=== PATIENT | female | born 1990 | race Caucasian/White ===

== ENCOUNTER 2022-06-08 15:53 | Emergency (ER) | payer OTHER, SELFPAY ==
--- NOTE | ~2022-06-08 | CT_ITS ---
EXAMINATION: CT ABDOMEN AND PELVIS WITHOUT CONTRAST CLINICAL INFORMATION: Right Flank pain. Question stone. COMPARISON: CT abdomen 05/29/2019 TECHNIQUE: Multidetector volumetric imaging was performed from the superior aspect of the liver through the pubic symphysis. Sagittal and coronal reformatted images were obtained on the technologist's workstation. This CT examination was performed using dose optimization techniques as appropriate, variously including the following: *Automated exposure control *Adjustment of mA and/or kV according to patient size (this includes techniques or standardized protocols for targeted exams where dose is matched to indication/reason for exam; i.e. extremities or head) *Use of iterative reconstruction technique DLP: 1097 mGy-cm FINDINGS: LUNG BASES: Minimal left basilar atelectasis/scarring. LIVER, GALLBLADDER, AND BILIARY TREE: The liver is normal in size, shape, and attenuation. No focal hepatic lesion or biliary ductal dilatation is present. The gallbladder is unremarkable with no evidence of radiopaque gallstones, gallbladder wall thickening, or obvious pericholecystic inflammatory changes. PANCREAS: Unremarkable. SPLEEN: Unremarkable. ADRENAL GLANDS: Unremarkable. KIDNEYS AND URETERS: There is a 5 mm calculus in the distal right ureter just proximal to the right UVJ. Proximal to this, there is mild to moderate hydroureteronephrosis, with mild periureteral stranding. No renal calculi. No left ureteral calculi or hydronephrosis. BLADDER: Partially distended appearing unremarkable. GASTROINTESTINAL TRACT: The small and large bowel are unremarkable. Appendix is unremarkable. ABDOMINAL WALL: Small fat-containing umbilical hernia LYMPH NODES: Normal. VASCULAR: Unremarkable. PELVIC VISCERA: Within normal limits OSSEOUS STRUCTURES: No acute or suspicious osseous abnormality. CT/CT abdomen pelvis wo IV con IMPRESSION: Mild to moderate right hydroureteronephrosis, with a 5 mm calculus in the distal right ureter, just proximal to the right UVJ. Fleischner guidelines were followed.
[2022-06-08 15:54] VITALS: BP 125/75; PULSE 73; RESP 18; TEMP 36.9; O2SAT 98; BMI 41.0
[2022-06-08 16:53] VITALS: BP 119/42; PULSE 85; RESP 18; TEMP 37; O2SAT 96
--- NOTE | 2022-06-08 17:00 | ED_ITS ---
HPI - Female Genitourinary General Chief complaint: Urogenital-Female Stated complaint: lower right side pain Time Seen by Provider: 06/08/22 17:00 Source: patient Mode of arrival: ambulatory Limitations: no limitations History of Present Illness HPI Narrative: Patient with no significant abdominal complaints the past noticed sudden onset of pain right low lower quadrant radiating to the right flank area since early today associated nausea and vomited 1 time pain is sharp comes and goes never had similar pain in the past no fever no chills patient does have dysuria for sometime no frequency no hematuria patient's brother has a history of kidney stones Related Data Previous Rx's Medication Instructions Recorded ondansetron 4 mg disintegrating 4 mg PO Q6-8H PRN nausea and 06/08/22 tablet vomiting #7 tabs oxycodone 5 mg tablet 5 mg PO Q6H PRN pain #20 tabs 06/08/22 tamsulosin 0.4 mg capsule (Flomax) 0.4 mg PO BEDTIME #14 caps 06/08/22 Allergies Allergy/AdvReac Type Severity Reaction Status Date / Time No Known Allergies Allergy Unverified 06/26/20 16:49 kiwi Allergy Unknown swelling Uncoded 05/11/19 00:00 Review of Systems Review of Systems: Yes all other systems are reviewed and are negative [facility] Social History Social History Patient Tobacco Use Status: Never used Tobacco Use of substances other than those prescribed or required for medical reasons: No Advance Directives: No Advance Directives Information Provided: Yes Patient : No Physical Exam Vital Signs: Vital Signs: Last Vital Signs Temp 97.8 F 06/08/22 19:10 Pulse 73 06/08/22 19:10 Resp 16 06/08/22 19:10 BP 101/46 L 06/08/22 19:10 Pulse Ox 100 06/08/22 19:10 O2 Del Method 06/08/22 19:10 BMI result Body Mass Index 41.0 Appearance: Alert. Oriented X3. No acute distress. Eyes: No pallor or icterus ENT: Pharynx normal. Oral Mucosa moist Neck: Normal inspection. Neck supple. CVS: Normal heart rate and rhythm. Pulses normal. Respiratory: No respiratory distress. Equal air entry bilateral, no wheezing/rales/rhonchi Abdomen: Soft and the pain in the right lower quadrant no rebound tenderness or guarding. Bowel sounds are present, no mass palpable, no CVA tenderness Skin: Skin warm and dry. Normal skin color. Normal skin turgor. Extremities: No lower extremity edema. No calf tenderness Neuro: Oriented X 3. No motor deficit. MDM - Female Genitourinary MDM Narrative Medical decision making narrative: Patient with right distal ureteral 5 mm stone with moderate hydronephrosis feel better after morphine and Toradol will discharge patient home on Flomax and oxycodone advised to follow with urologist Lab Data Attestation: I reviewed the patient's lab results. Result diagrams: 06/08/22 17:33 06/08/22 17:33 Labs: Lab Results 06/08/22 06/08/22 06/08/22 Range/Units 17:33 17:33 17:33 WBC 8.1 (4.8-10.8) X10*3/uL RBC 4.34 (4.20-5.50) X10*6/uL Hgb 12.4 (12.0-16.0) g/dl Hct 37.1 (37.0-47.0) % MCV 85.5 (80.0-98.0) fL MCH 28.6 (27.0-33.0) pg MCHC 33.4 (31.0-35.0) g/dl RDW 12.5 (11.0-16.0) % Plt Count 263 (160-400) X10*3/uL MPV 10.9 (9.4-12.3) fL Immature Gran % (Auto) 0.4 (0.0-0.4) % Neut % (Auto) 61.9 (45-73) % Lymph % (Auto) 27.3 (20-40) % [place] % (Auto) 9.0 (2-11) % Eos % (Auto) 1.2 (0-4) % Baso % (Auto) 0.2 (0-2) % Lymph # (Auto) 2.2 (1.2-4.9) X10*3/uL [place] # (Auto) 0.7 (0.1-1.2) X10*3/uL Eos # (Auto) 0.1 (0.0-0.4) X10*3/uL Baso # (Auto) 0.0 (0.0-0.2) X10*3/uL Abs Immat Gran (auto) 0.03 (0.00-0.03) X10*3/uL Absolute Neuts (auto) 5.0 (2.0-8.3) x10*3/uL Absolute Nucleated RBC 0.000 (0.0-0.012) X10*3/uL Nucleated RBC % (auto) 0.0 (0.0-0.2) /100WBC Sodium 141 (135-145) mmol/L Potassium 5.0 (3.3-5.1) mmol/L Chloride 107 (96-108) mmol/L Carbon Dioxide 25 (22-29) mmol/L Anion Gap 14 (12-20) BUN 13 (9-16) mg/dL Creatinine 0.91 (0.5-1.4) mg/dL Estim Creat Clear Calc 107.7 Estimated GFR > 60 Random Glucose 96 (60-115) mg/dL Calcium 9.1 (8.4-10.2) mg/dL Urine Color Yellow Urine Appearance Clear Urine pH 6.0 (5.0-9.0) Ur Specific [place] 1.020 (1.005-1.025) Urine Protein Negative (Neg-Trace) mg/dL Urine Glucose (UA) Negative (Negative) mg/dL Urine Ketones Negative (Negative) mg/dL Urine Blood Negative (Negative) Urine Nitrite Negative (Negative) Ur Leukocyte Esterase Trace H (Negative) Urine RBC 0-2 (0-2) /HPF Urine WBC 0-5 (0-5) /HPF Ur Squamous Epith Cells 0-2 (0-2) /HPF Urine Bacteria None Seen (None Seen) Hyaline Casts 0-2 (0-2) /LPF Urine Test (NEGATIVE) 06/08/22 Range/Units 17:33 WBC (4.8-10.8) X10*3/uL RBC (4.20-5.50) X10*6/uL Hgb (12.0-16.0) g/dl Hct (37.0-47.0) % MCV (80.0-98.0) fL MCH (27.0-33.0) pg MCHC (31.0-35.0) g/dl RDW (11.0-16.0) % Plt Count (160-400) X10*3/uL MPV (9.4-12.3) fL Immature Gran % (Auto) (0.0-0.4) % Neut % (Auto) (45-73) % Lymph % (Auto) (20-40) % [place] % (Auto) (2-11) % Eos % (Auto) (0-4) % Baso % (Auto) (0-2) % Lymph # (Auto) (1.2-4.9) X10*3/uL [place] # (Auto) (0.1-1.2) X10*3/uL Eos # (Auto) (0.0-0.4) X10*3/uL Baso # (Auto) (0.0-0.2) X10*3/uL Abs Immat Gran (auto) (0.00-0.03) X10*3/uL Absolute Neuts (auto) (2.0-8.3) x10*3/uL Absolute Nucleated RBC (0.0-0.012) X10*3/uL Nucleated RBC % (auto) (0.0-0.2) /100WBC Sodium (135-145) mmol/L Potassium (3.3-5.1) mmol/L Chloride (96-108) mmol/L Carbon Dioxide (22-29) mmol/L Anion Gap (12-20) BUN (9-16) mg/dL Creatinine (0.5-1.4) mg/dL Estim Creat Clear Calc Estimated GFR Random Glucose (60-115) mg/dL Calcium (8.4-10.2) mg/dL Urine Color Urine Appearance Urine pH (5.0-9.0) Ur Specific [place] (1.005-1.025) Urine Protein (Neg-Trace) mg/dL Urine Glucose (UA) (Negative) mg/dL Urine Ketones (Negative) mg/dL Urine Blood (Negative) Urine Nitrite (Negative) Ur Leukocyte Esterase (Negative) Urine RBC (0-2) /HPF Urine WBC (0-5) /HPF Ur Squamous Epith Cells (0-2) /HPF Urine Bacteria (None Seen) Hyaline Casts (0-2) /LPF Urine Test NEGATIVE (NEGATIVE) Discharge Plan Discharge Clinical Impression: Kidney stone on right side Patient Disposition: Home, Self-Care Instructions: Kidney Stones (ED) Additional Instructions: Drink plenty of fluids Pain medication as prescribed Follow-up with urologist, come to ED if pain continues Avoid diet containing oxalate Prescriptions: New ondansetron 4 mg tablet,disintegrating 4 mg PO Q6-8H PRN (Reason: nausea and vomiting) Qty: 7 0RF oxycodone 5 mg tablet 5 mg PO Q6H PRN (Reason: pain) Qty: 20 0RF Rx Instructions: Partial Fill upon patient request. tamsulosin [Flomax] 0.4 mg capsule 0.4 mg PO BEDTIME Qty: 14 0RF Referrals: Pablo Espitia MD [Physician] - 1 week Interventions: ED Discharge Assessment Last Done: 06/08/22 20:16 Discharge Date/Time: 06/08/22 20:35
[2022-06-08 17:39] LABS: MANUAL DIFF FLAG NO
[2022-06-08 17:45] LABS: Urine Pregnancy NEGATIVE (NEGATIVE)
[2022-06-08 17:46] LABS: Appearance Urine Clear; Color Urine Yellow; Glucose Urine UA Negative (Negative); Leukocyte Esterase Urine Trace (Negative); Nitrite Urine Negative (Negative); UPreg QC Valid YES; Urine Blood Negative (Negative); Urine Ketones Negative (Negative); Urine Protein Negative (Neg-Trace)
[2022-06-08 17:48] LABS: Bacteria Urine None Seen (None Seen); Hyaline Casts Urine 0-2 /LPF (0-2); RBC Urine 0-2 /HPF (0-2); Squamous Epithelial Cell Urine 0-2 /HPF (0-2); WBC Urine 0-5 /HPF (0-5)
[2022-06-08 17:54] LABS: Anion Gap 14 (12-20); Blood Urea Nitrogen 13 mg/dL (9-16); Calcium 9.1 mg/dL (8.4-10.2); Carbon Dioxide 25 mmol/L (22-29); Chloride 107 mmol/L (96-108); Creatinine Clr Calc Pharmacy 107.7; Estimated Glomerular Filt Rate > 60; Glucose Random 96 mg/dL (60-115); Sodium 141 mmol/L (135-145)
[2022-06-08] MEDS: Ketorolac Tromethamine 30 MG/ML VIAL IVPUSH (17:55)
[2022-06-08] MEDS: Morphine Sulfate 4 MG/ML CARTRIDGE IVPUSH (17:56)
[2022-06-08] MEDS: ondansetron HCL 4 MG/2 ML VIAL IVPUSH ×2 (17:56→20:05)
[2022-06-08] MEDS: 0.9 % Sodium Chloride 1,000 ML 999 ML IV (18:04)
[2022-06-08 18:08] LABS: Basophils Percent Auto 0.2 % (0-2); Eosinophils Absolute Auto 0.1 X10*3/uL (0.0-0.4); Eosinophils Percent Auto 1.2 % (0-4); Hematocrit 37.1 % (37.0-47.0); Hemoglobin 12.4 g/dl (12.0-16.0); Imm Gran Abs Auto 0.03 X10*3/uL (0.00-0.03); Imm Gran Pct Auto 0.4 % (0.0-0.4); Lymphocytes Absolute Auto 2.2 X10*3/uL (1.2-4.9); Lymphocytes Percent Auto 27.3 % (20-40); Mean Corpuscular HGB Conc 33.4 g/dl (31.0-35.0); Mean Corpuscular Hemoglobin 28.6 pg (27.0-33.0); Mean Corpuscular Volume 85.5 fL (80.0-98.0); Mean Platelet Volume 10.9 fL (9.4-12.3); Monocytes Absolute Auto 0.7 X10*3/uL (0.1-1.2); Neutrophils Percent Auto 61.9 % (45-73); Platelet Count 263 X10*3/uL (160-400); Red Blood Count 4.34 X10*6/uL (4.20-5.50); Red Cell Distribution Width 12.5 % (11.0-16.0); White Blood Count 8.1 X10*3/uL (4.8-10.8)
[2022-06-08 19:10] VITALS: BP 101/46; PULSE 73; RESP 16; TEMP 36.6; O2SAT 100
[2022-06-08] MEDS: Tamsulosin HCL 0.4 MG CAPSULE PO (20:06)
== END 2022-06-08 20:35 | disposition home or self-care (01) ==
PROVIDERS: Emergency Provider Internal Medicine
DX: N13.2 Hydronephrosis with renal and ureteral calculous obstruction (principal); R10.31 Right lower quadrant pain
CPT/HCPCS: 36415; 74176; 80048; 81001; 81025; 85025; 96374; 96375; 96376; 99284; J1885; J2270; J2405

== ENCOUNTER 2022-06-30 20:43 | Emergency (ER) | payer OTHER, SELFPAY ==
--- NOTE | ~2022-06-30 | XR_ITS ---
EXAMINATION: XR CHEST CLINICAL INFORMATION: Chest pain/shortness of breath COMPARISON: 07/01/2020 TECHNIQUE: Frontal view of the chest was obtained. FINDINGS: No significant abnormality is noted involving the heart, lungs, mediastinum, bony thorax or soft tissues. XR/XR chest 1V IMPRESSION: Unremarkable examination.
--- NOTE | 2022-06-30 21:09 | ECG_ITS ---
Test Reason : CHEST PAIN Blood Pressure : / mmHG Vent. Rate : 096 BPM Atrial Rate : 096 BPM P-R Int : 156 ms QRS Dur : 072 ms QT Int : 334 ms P-R-T Axes : 027 015 013 degrees QTc Int : 421 ms Normal sinus rhythm Normal ECG When compared with ECG of 01-JUL-2020 14:55, No significant change was found Referred By: Generic ED Physician Electronically Signed By:BUDDY PABON
[2022-06-30 21:27] LABS: Hemoglobin 12.4 g/dl (12.0-16.0); Mean Corpuscular HGB Conc 34.4 g/dl (31.0-35.0); Mean Corpuscular Hemoglobin 30.2 pg (27.0-33.0); Mean Corpuscular Volume 87.6 fL (80.0-98.0); Mean Platelet Volume 10.6 fL (9.4-12.3); Platelet Count 278 X10*3/uL (160-400); Red Blood Count 4.11 X10*6/uL (4.20-5.50); Red Cell Distribution Width 12.8 % (11.0-16.0); White Blood Count 7.9 X10*3/uL (4.8-10.8)
[2022-06-30 21:33] VITALS: BP 118/68; PULSE 100; RESP 17; TEMP 37.1; O2SAT 100; BMI 43.2
[2022-06-30 21:52] LABS: Alanine Aminotransferase 17 U/L (0-31); Albumin Level 3.9 g/dL (3.5-5.0); Alkaline Phosphatase 78 U/L (39-117); Anion Gap 11 (12-20); Aspartate Amino Transferase 15 U/L (5-31); Bilirubin Total 0.4 mg/dL (0.0-1.0); Blood Urea Nitrogen 15 mg/dL (9-16); Calcium 9.4 mg/dL (8.4-10.2); Carbon Dioxide 28 mmol/L (22-29); Chloride 105 mmol/L (96-108); Creatinine Clr Calc Pharmacy 106.3; Estimated Glomerular Filt Rate > 60; Glucose Random 103 mg/dL (60-115); Sodium 140 mmol/L (135-145); Total Protein 7.9 g/dL (6.5-8.0)
[2022-06-30 21:58] LABS: COVID-19 Test Negative (Negative)
[2022-06-30 22:05] LABS: Troponin-I High Sensitivity < 3.5 ng/L (<3.5-17.0)
== END 2022-07-01 01:10 | disposition left against medical advice (07) ==
PROVIDERS: Emergency Provider Emergency Medicine
DX: R07.89 Other chest pain (principal); R06.02 Shortness of breath; R42 Dizziness and giddiness; Z20.822 Contact with and (suspected) exposure to COVID-19; Z79.899 Other long term (current) drug therapy
CPT/HCPCS: 71045; 80053; 84484; 85027; 87635; 93005; 99283

== ENCOUNTER → 2022-10-18 14:18 | Outpatient (BNVA) | payer OTHER, SELFPAY | PROVIDERS: Visit Provider Physician Assistant Surgical | DX: Z13.89 Encounter for screening for other disorder (principal) ==

== ENCOUNTER → 2022-10-27 08:24 | Outpatient (BNVA) | payer OTHER, SELFPAY | PROVIDERS: Visit Provider Surgery | DX: Z13.89 Encounter for screening for other disorder (principal) ==

== ENCOUNTER 2022-11-01 11:19 | Outpatient (REF) | payer OTHER, SELFPAY ==
[2022-11-03 15:08] LABS: H Pylori Breath Test Negative (Negative)
== END 2022-11-01 11:20 | disposition home or self-care (01) ==
LOC: CF 11:19
PROVIDERS: Visit Provider Surgery
DX: Z11.2 Encounter for screening for other bacterial diseases (principal); E66.01 Morbid (severe) obesity due to excess calories
CPT/HCPCS: 36415; 83013; 99211

== ENCOUNTER 2022-11-06 09:11 | Outpatient (REF) | payer OTHER, SELFPAY ==
[2022-11-06 09:23] LABS: MANUAL DIFF FLAG NO
[2022-11-06 10:07] LABS: Basophils Percent Auto 0.2 % (0-2); Eosinophils Absolute Auto 0.1 X10*3/uL (0.0-0.4); Eosinophils Percent Auto 1.8 % (0-4); Hematocrit 39.9 % (37.0-47.0); Hemoglobin 13.5 g/dl (12.0-16.0); Imm Gran Abs Auto 0.01 X10*3/uL (0.00-0.03); Imm Gran Pct Auto 0.2 % (0.0-0.4); Lymphocytes Absolute Auto 2.4 X10*3/uL (1.2-4.9); Lymphocytes Percent Auto 42.2 % (20-40); Mean Corpuscular HGB Conc 33.8 g/dl (31.0-35.0); Mean Corpuscular Volume 88.7 fL (80.0-98.0); Mean Platelet Volume 11.1 fL (9.4-12.3); Monocytes Absolute Auto 0.7 X10*3/uL (0.1-1.2); Monocytes Percent Auto 11.7 % (2-11); Neutrophils Absolute Auto 2.5 x10*3/uL (2.0-8.3); Neutrophils Percent Auto 43.9 % (45-73); Platelet Count 302 X10*3/uL (160-400); Red Cell Distribution Width 12.2 % (11.0-16.0); White Blood Count 5.7 X10*3/uL (4.8-10.8)
[2022-11-06 10:25] LABS: Estimated Average Glucose 97 mg/dL
[2022-11-06 10:38] LABS: Alanine Aminotransferase 34 U/L (0-31); Albumin Level 4.1 g/dL (3.5-5.0); Alkaline Phosphatase 63 U/L (39-117); Anion Gap 12 (12-20); Aspartate Amino Transferase 29 U/L (5-31); Bilirubin Total 0.6 mg/dL (0.0-1.0); Blood Urea Nitrogen 14 mg/dL (9-16); C Reactive Protein 0.18 mg/dL (< or = 0.50); Calcium 9.5 mg/dL (8.4-10.2); Carbon Dioxide 25 mmol/L (22-29); Chloride 106 mmol/L (96-108); Cholesterol 124 mg/dL; Estimated Glomerular Filt Rate > 60; Glucose Random 101 mg/dL (60-115); HDL Cholesterol 31 mg/dL; Iron 61 mcg/dL (30-160); LDL Cholesterol Calculated 75 mg/dl; Percent Iron Saturation 19 % (15-50); Potassium 4.2 mmol/L (3.3-5.1); Sodium 139 mmol/L (135-145); Total Iron Binding Capacity 319 mcg/dL (228-428); Total Protein 7.8 g/dL (6.5-8.0); Triglycerides 94 mg/dL; Unsaturated Iron Binding 258 ug/dL
[2022-11-06 10:57] LABS: Ferritin 16 ng/mL (10-122); Insulin 29 uU/mL (2-29); TSH reflex Free T4 0.84 uIU/mL (0.32-4.0); Vitamin D 25-OH Total 17.7 ng/mL (>30)
[2022-11-06 11:08] LABS: Folate 15.9 ng/mL (> or = 4.0); Vitamin B12 557 pg/mL (200-900)
[2022-11-09 16:34] LABS: Zinc 129 mcg/dL (60-130)
[2022-11-09 17:59] LABS: Calcium (PTHI) 9.5 mg/dL (8.6-10.2); PTHI 81 pg/mL (16-77)
[2022-11-11 13:44] LABS: Vitamin A 49 mcg/dL (38-98)
[2022-11-11 16:04] LABS: Vitamin B1 13 nmol/L (8-30)
== END 2022-11-06 09:12 | disposition home or self-care (01) ==
LOC: HO.LAB 09:11
PROVIDERS: PCP Internal Medicine; Visit Provider Surgery
DX: E66.01 Morbid (severe) obesity due to excess calories (principal)
CPT/HCPCS: 36415; 80053; 80061; 82306; 82607; 82728; 82746; 83036; 83525; 83540; 83970; 84425; 84443; 84590; 84630; 85025; 86140

== ENCOUNTER → 2022-11-19 11:04 | Outpatient (BNVA) | payer OTHER, SELFPAY | PROVIDERS: Visit Provider Dietitian, Registered | DX: E66.01 Morbid (severe) obesity due to excess calories (principal); Z68.41 Body mass index [BMI] 40.0-44.9, adult | CPT/HCPCS: 97802 ==

== ENCOUNTER → 2022-11-22 08:46 | Outpatient (BNVA) | payer OTHER, SELFPAY | PROVIDERS: Visit Provider Surgery | DX: Z13.89 Encounter for screening for other disorder (principal) ==

== ENCOUNTER → 2022-12-01 12:30 | Outpatient (BNVA) | payer OTHER, SELFPAY | PROVIDERS: Visit Provider Counselor Mental Health | DX: F43.20 Adjustment disorder, unspecified (principal); E66.01 Morbid (severe) obesity due to excess calories | CPT/HCPCS: 90791 ==

== ENCOUNTER 2022-12-15 09:22 | Outpatient (REF) | payer OTHER, SELFPAY ==
--- NOTE | ~2022-12-15 | FL_ITS ---
EXAMINATION: XR FL UPPER GI WITH AIR CLINICAL INFORMATION: Morbid obesity. COMPARISON: None TECHNIQUE: Air-contrast upper GI examination. FINDINGS: There is normal apposition of the focal cords while saying E. There is normal elevation of the soft palate while saying candy. The patient swallowed half-inch diameter barium tablet without difficulty. Thin and thick barium was then ingested with no evidence of nasopharyngeal or tracheal aspiration. The esophagus had normal motility without persistent stricture or mucosal abnormality. No significant hiatal hernia identified. There was some mild gastroesophageal reflux within the distal third of the esophagus which cleared rapidly. The stomach demonstrates normal distensibility without abnormal mass or ulceration. There is no delay in gastric emptying. The duodenal bulb and sweep appeared unremarkable. FLUOROSCOPY TIME: 1.7 minutes. DOSE AREA PRODUCT: 18.696 Gy-cm2 (johnson-centimeter squared). FL/FL upper GI w air IMPRESSION: Minimal gastroesophageal reflux. Otherwise, unremarkable air-contrast upper GI examination.
--- NOTE | ~2022-12-15 | US_ITS ---
EXAMINATION: US COMPLETE ABDOMEN WITH LIVER ELASTOGRAPHY CLINICAL INFORMATION: Morbid obesity. COMPARISON: None. TECHNIQUE: Real-time imaging of the abdominal viscera. Noninvasive ultrasound liver fibrosis assessment is performed using Sherie ElastPQ point quantification shear wave elastography (2D-SWE) with a C5-2 MHz transducer. Multiple elastography samples are obtained. FINDINGS: PANCREAS: Normal. The visualized pancreatic head and body are normal in appearance. The remainder of the pancreas is obscured from visualization by the overlying bowel gas. ABDOMINAL AORTA: The proximal, middle, and distal aortic segments are normal in caliber. INFERIOR VENA CAVA: Visualized portions are normal. LIVER: The liver demonstrates normal size, contour and increased echogenicity. No focal lesion or intrahepatic biliary duct dilatation. The right lobe measures 14.1 cm in length. The left lobe measures 11.7 cm in length. Portal flow is away from the liver (hepatofugal). Shear wave liver elastography median stiffness is 2.05 m/s (reference: normal median stiffness is 1.3 m/s or less). IQR/median stiffness to assess sampling precision is 0.08 (reference: good quality data set is IQR/median stiffness of 0.15 or less). GALLBLADDER: A 4 mm dependent gallstone is seen. The gallbladder is physiologically distended without evidence of sludge, polyps, wall thickening or pericholecystic fluid. COMMON BILE DUCT: Normal in caliber measuring 0.4 cm in diameter. RIGHT KIDNEY: Normal. No hydronephrosis. No renal calculi or focal parenchymal lesions. The kidney measures 10.0 cm in maximum dimension. LEFT KIDNEY: Normal. No hydronephrosis. No renal calculi or focal parenchymal lesions. The kidney measures 9.2 cm in maximum dimension. SPLEEN: Normal. The spleen measures 11.8 cm in maximum dimension. FREE FLUID: None. US/US abdomen comp w elastography IMPRESSION: 1. There is generalized increase in hepatic echotexture, consistent with fatty infiltration or hepatocellular disease. Please correlate clinically. No focal hepatic mass or intrahepatic biliary dilatation is seen. 2. Liver elastography: Measurements are suggestive of compensated advanced chronic liver disease but need further test for confirmation. 3. There is mild cholelithiasis, without cholecystitis or choledocholithiasis. REFERENCE: Society of Radiologists in Ultrasound Liver Stiffness Thresholds (2020): LIVER STIFFNESS THRESHOLDS: *Liver Stiffness equal or less than 1.3 m/s: High probability of being normal. *Liver Stiffness less than 1.7 m/s: In the absence of other known clinical signs, rules out compensated advanced chronic liver disease. *Liver Stiffness 1.7-2.1 m/s: Suggestive of compensated advanced chronic liver disease but need further test for confirmation. *Liver Stiffness over 2.1 m/s: Rules in compensated advanced chronic liver disease. *Liver Stiffness over 2.4 m/s: Suggestive of clinically significant portal hypertension. QUALITY OF DATA SET: *IQR/Median value equal or less than 0.15 implies a quality data set. *IQR/Median value over 0.15 implies a poor quality data set. SIGNIFICANT CHANGE FROM PRIOR EXAM: Significant change if liver stiffness measurement is 10% or greater from prior exam. OTHER CONSIDERATIONS: The stage of liver fibrosis may be overestimated in the setting of acute hepatitis, liver inflammation, elevated liver function tests, hepatic vascular congestion, obstructive cholestasis, non-fasting state, and infiltrative diseases such as amyloidosis and lymphoma. In some patients with NAFLD, the liver stiffness thresholds for compensated advanced chronic liver disease may be lower. In causes other than viral hepatitis and NAFLD, liver stiffness thresholds are not well established.
--- NOTE | ~2022-12-15 | XR_ITS ---
EXAMINATION: XR CHEST CLINICAL INFORMATION: Morbid obesity COMPARISON: June 30, 2022 TECHNIQUE: 2 views of the chest were obtained. FINDINGS: No significant abnormality is noted involving the heart, lungs, mediastinum, bony thorax or soft tissues. XR/XR chest 2V IMPRESSION: No acute disease.
== END 2022-12-15 09:23 | disposition home or self-care (01) ==
LOC: HO.US 09:22
PROVIDERS: Visit Provider Surgery
DX: Z01.818 Encounter for other preprocedural examination (principal); E66.01 Morbid (severe) obesity due to excess calories; K21.9 Gastro-esophageal reflux disease without esophagitis
CPT/HCPCS: 71046; 74246; 76705; 76981

== ENCOUNTER → 2022-12-17 08:09 | Outpatient (BNVA) | payer OTHER, SELFPAY | PROVIDERS: Visit Provider Surgery ==

== ENCOUNTER → 2023-01-10 08:08 | Outpatient (BNVA) | payer OTHER, SELFPAY | PROVIDERS: Visit Provider Surgery ==

== ENCOUNTER → 2023-02-02 08:27 | Outpatient (BNVA) | payer OTHER, SELFPAY | PROVIDERS: Visit Provider Surgery ==

== ENCOUNTER → 2023-02-04 12:53 | Outpatient (BNVA) | payer OTHER, SELFPAY | PROVIDERS: Visit Provider Surgery ==

== ENCOUNTER 2023-02-15 11:36 | Inpatient (IN) | payer OTHER, SELFPAY ==
[2023-02-08 13:55] VITALS: BMI 39.5
[2023-02-09 10:42] LABS: MANUAL DIFF FLAG NO
[2023-02-09 10:57] LABS: Basophils Percent Auto 0.2 % (0-2); Eosinophils Absolute Auto 0.2 X10*3/uL (0.0-0.4); Eosinophils Percent Auto 2.6 % (0-4); Hematocrit 40.4 % (37.0-47.0); Hemoglobin 14.2 g/dl (12.0-16.0); Imm Gran Abs Auto 0.04 X10*3/uL (0.00-0.03); Imm Gran Pct Auto 0.7 % (0.0-0.4); Lymphocytes Absolute Auto 2.2 X10*3/uL (1.2-4.9); Lymphocytes Percent Auto 37.5 % (20-40); Mean Corpuscular HGB Conc 35.1 g/dl (31.0-35.0); Mean Corpuscular Hemoglobin 30.8 pg (27.0-33.0); Mean Corpuscular Volume 87.6 fL (80.0-98.0); Monocytes Absolute Auto 0.7 X10*3/uL (0.1-1.2); Monocytes Percent Auto 11.9 % (2-11); Neutrophils Absolute Auto 2.8 x10*3/uL (2.0-8.3); Neutrophils Percent Auto 47.1 % (45-73); Platelet Count 286 X10*3/uL (160-400); Red Blood Count 4.61 X10*6/uL (4.20-5.50); Red Cell Distribution Width 11.3 % (11.0-16.0); White Blood Count 5.8 X10*3/uL (4.8-10.8)
[2023-02-09 11:00] LABS: Prothrombin Time 11.3 SEC (10.0-13.1)
[2023-02-09 11:03] LABS: Partial Thromboplastin Time 28.2 SEC (26.0-36.4)
[2023-02-09 11:09] LABS: Estimated Average Glucose 97 mg/dL
[2023-02-09 12:04] LABS: Alanine Aminotransferase 30 U/L (0-31); Alkaline Phosphatase 70 U/L (39-117); Anion Gap 12 (12-20); Aspartate Amino Transferase 29 U/L (5-31); Bilirubin Total 0.6 mg/dL (0.0-1.0); Blood Urea Nitrogen 15 mg/dL (9-16); C Reactive Protein 0.17 mg/dL (< or = 0.50); Calcium 9.6 mg/dL (8.4-10.2); Carbon Dioxide 25 mmol/L (22-29); Chloride 109 mmol/L (96-108); Cholesterol 124 mg/dL; Creatinine Clr Calc Pharmacy 89.6; Estimated Glomerular Filt Rate 60; Glucose Random 95 mg/dL (60-115); HDL Cholesterol 35 mg/dL; LDL Cholesterol Calculated 74 mg/dl; Sodium 141 mmol/L (135-145); Total Protein 7.7 g/dL (6.5-8.0); Triglycerides 79 mg/dL
[2023-02-09 12:10] LABS: Insulin 23 uU/mL (2-29); TSH reflex Free T4 0.89 uIU/mL (0.32-4.0)
--- NOTE | 2023-02-11 22:30 | MHC.SHP ---
Pre-Procedural Eval Section A Date of Service: 02/11/23 The patient is an INPATIENT: Yes The History & Physical has been completed within 30 days and I have reviewed it.: Yes Section B Chief Complaint: morbid obesity Relevant Family History (Specify if Yes): No Relevant Social History: None Present Medications: None Medical History: No relevant PMH History of Previous Operations: No relevant previous surgery Allergies: Allergies Allergy/AdvReac Type Severity Reaction Status Date / Time No Known Allergies Allergy Verified 02/02/23 10:04 Review of Systems Sugical H&P ROS: Negative: Constitution, Cardiovascular, Respiratory, Neurological, Psychiatric, Hem-Onc, Allergic/Immunologic, Gastrointestinal, Genitourinary, Musculoskeletal, Integumentary, Endocrine and Eyes/Ears/Nose/Throat Exam Surgical H&P Exam: Normal: HEENT, Normal: Heart, Normal: Lungs, Normal: Extremities, Normal: Abdomen, Normal: Skin and Normal: Neurological Plan Diagnosis/Plan: Unchanged I have reviewed the history and physical and performed a pertinent physical examination on my patient. No changes have occurred unless specified. Time Spent With Patient Time: Total time managing care of this patient today ____ minutes.
--- NOTE | 2023-02-14 10:26 | HO.ANESPROP2 ---
Documented by User: Ivonne Aviles NP 02/14/23 10:26 HPI - Anesthesia Eval Consult details Narrative: 32yo F for Gastrectomy Sleeve,EGD,poss diaphragmatic hernia, poss ventral hernia,poss open, PMFSH Active Problems Active Problems: All Active Problems (Updated 02/08/23 @ 13:54 by Mary Ann Layne RN) Constipation (Acute) Vitamin D deficiency (Acute) Adjustment disorder, unspecified (Acute) Obesity (Acute) BMI 39.0-39.9,adult (Acute) Back pain (Acute) Morbid obesity (Acute) Past Medical History Medical History (Updated 02/15/23 @ 13:47 by Alex Conner MD) Back pain GERD (gastroesophageal reflux disease) Irritable bowel syndrome with both constipation and diarrhea Morbid obesity Postoperative nausea Rectal bleeding Renal calculi Family History Family History (Updated 10/18/22 @ 14:38 by SHERYL Brar) Mother No problems noted. Father No problems noted. Brother Kidney disease Son No problems noted. Son No problems noted. Son No problems noted. Surgical History Surgical History (Updated 02/15/23 @ 12:57 by Marina Chiu PA-C) History of surgery Hx of unilateral salpingectomy Hx of unilateral salpingectomy Social History Social History (Updated 10/18/22 @ 14:38 by SHERYL Brar) Household Members Other:: minor children Are you a primary career placement specialist to a significant other at home: Yes (minor children) Do you presently have visiting nurse or other home services: No Alcohol intake: never Patient Tobacco Use Status: Never used Tobacco Use of substances other than those prescribed or required for medical reasons: No Have you been hit, kicked, punched, or otherwise hurt by someone within the past year? If so, by whom?: No Are you DNR?: No Advance Directives: No Advance Directives Information Provided: Yes (brochure mailed) Advance Directives on File: No Recently lost weight without trying: No Eating poorly because of decreased appetite: No Nutrition Risks: No Nutritional Risk Patient : No FDLMP: 01/21/23 : No Poor oral hygiene: No (left upper canine tooth broken) Meds Allergies Allergy/AdvReac Type Severity Reaction Status Date / Time No Known Allergies Allergy Verified 02/02/23 10:04 Home Medications Medication Instructions Recorded Confirmed Last Taken Type ondansetron 4 mg disintegrating 4 mg PO Q12H PRN Nausea And 02/15/23 02/15/23 Unknown History tablet Vomiting Exam Exam Date and Time: February 14, 2023 1026 Height,Weight and Vital Signs: Height 5 ft 4 in Weight 104.326 kg Pertinent Lab Results Pertinent Lab Results: Laboratory Tests 02/09/23 02/09/23 02/09/23 10:35 10:40 10:40 WBC 5.8 RBC 4.61 Hgb 14.2 Hct 40.4 MCV 87.6 MCH 30.8 MCHC 35.1 H RDW 11.3 Plt Count 286 MPV 11.0 Immature Gran % (Auto) 0.7 H Neut % (Auto) 47.1 Lymph % (Auto) 37.5 [place] % (Auto) 11.9 H Eos % (Auto) 2.6 Baso % (Auto) 0.2 Lymph # (Auto) 2.2 [place] # (Auto) 0.7 Eos # (Auto) 0.2 Baso # (Auto) 0.0 Abs Immat Gran (auto) 0.04 H Absolute Neuts (auto) 2.8 Absolute Nucleated RBC 0.000 Nucleated RBC % (auto) 0.0 PT 11.3 INR 1.0 APTT 28.2 Sodium Potassium Chloride Carbon Dioxide Anion Gap BUN Creatinine Estim Creat Clear Calc Estimated GFR Random Glucose Estimat Average Glucose Hemoglobin A1c % Insulin Level Calcium Total Bilirubin AST ALT Alkaline Phosphatase C-Reactive Protein Total Protein Albumin Triglycerides Cholesterol LDL Cholesterol, Calc HDL Cholesterol TSH Blood Type B Positive Antibody Screen NEGATIVE 02/09/23 02/09/23 10:40 10:40 WBC RBC Hgb Hct MCV MCH MCHC RDW Plt Count MPV Immature Gran % (Auto) Neut % (Auto) Lymph % (Auto) [place] % (Auto) Eos % (Auto) Baso % (Auto) Lymph # (Auto) [place] # (Auto) Eos # (Auto) Baso # (Auto) Abs Immat Gran (auto) Absolute Neuts (auto) Absolute Nucleated RBC Nucleated RBC % (auto) PT INR APTT Sodium 141 Potassium 5.0 Chloride 109 H Carbon Dioxide 25 Anion Gap 12 BUN 15 Creatinine 1.07 Estim Creat Clear Calc 89.6 Estimated GFR 60 Random Glucose 95 Estimat Average Glucose 97 Hemoglobin A1c % 5.0 Insulin Level 23 Calcium 9.6 Total Bilirubin 0.6 AST 29 ALT 30 Alkaline Phosphatase 70 C-Reactive Protein 0.17 Total Protein 7.7 Albumin 4.0 Triglycerides 79 Cholesterol 124 LDL Cholesterol, Calc 74 HDL Cholesterol 35 TSH 0.89 Blood Type Antibody Screen Narrative Narrative: EKG 06/2022 Vent. Rate : 096 BPM ? ? Atrial Rate : 096 BPM ?? P-R Int : 156 ms? QRS Dur : 072 ms ? ? QT Int : 334 ms ? ? ? P-R-T Axes : 027 015 013 degrees ?? QTc Int : 421 ms ? Normal sinus rhythm Normal ECG When compared with ECG of 01-JUL-2020 14:55, No significant change was found Assessment and Plan Assessment Anesthesia Assessment: Chart Reviewed Documented by User: Vira Anne MD 02/15/23 15:18 [facility] Active Problems Active Problems: All Active Problems (Updated 02/08/23 @ 13:54 by Mary Ann Layne RN) Constipation (Acute) Vitamin D deficiency (Acute) Adjustment disorder, unspecified (Acute) Obesity (Acute) BMI 39.0-39.9,adult (Acute) Back pain (Acute) Morbid obesity (Acute) Denies KALLIE Past Medical History Medical History (Updated 02/15/23 @ 13:47 by Alex Conner MD) Back pain GERD (gastroesophageal reflux disease) Irritable bowel syndrome with both constipation and diarrhea Morbid obesity Postoperative nausea Rectal bleeding Renal calculi Family History Family History (Updated 10/18/22 @ 14:38 by SHERYL Brar) Mother No problems noted. Father No problems noted. Brother Kidney disease Son No problems noted. Son No problems noted. Son No problems noted. Family history of problems with anesthesia: No Surgical History Surgical History (Updated 02/15/23 @ 12:57 by Marina Chiu PA-C) History of surgery Hx of unilateral salpingectomy Hx of unilateral salpingectomy History of Problems with Anesthesia: No Social History Social History (Updated 10/18/22 @ 14:38 by SHERYL Brar) Household Members Other:: minor children Are you a primary career placement specialist to a significant other at home: Yes (minor children) Do you presently have visiting nurse or other home services: No Alcohol intake: never Patient Tobacco Use Status: Never used Tobacco Use of substances other than those prescribed or required for medical reasons: No Have you been hit, kicked, punched, or otherwise hurt by someone within the past year? If so, by whom?: No Are you DNR?: No Advance Directives: No Advance Directives Information Provided: Yes (brochure mailed) Advance Directives on File: No Recently lost weight without trying: No Eating poorly because of decreased appetite: No Nutrition Risks: No Nutritional Risk Patient : No FDLMP: 01/21/23 : No Poor oral hygiene: No (left upper canine tooth broken) Meds Allergies Allergy/AdvReac Type Severity Reaction Status Date / Time No Known Allergies Allergy Verified 02/02/23 10:04 Home Medications Medication Instructions Recorded Confirmed Last Taken Type ondansetron 4 mg disintegrating 4 mg PO Q12H PRN Nausea And 02/15/23 02/15/23 Unknown History tablet Vomiting Exam Height,Weight and Vital Signs: Height 5 ft 4 in Weight 104.326 kg Vital Signs Temp Pulse Resp BP Pulse Ox O2 Del Method 02/15/23 11:46 97.9 F 70 18 114/76 98 Room Air Airway Mallampati Class: III TM Dist: >3cm Neck ROM: Full Loose/Missing/Broken Teeth: Yes (Some missing teeth back. Broken tooth top left back) Heart: RRR Other: CTAB Assessment and Plan Assessment Anesthesia Assessment: Anesthesia Plan Discussed Final Anesthetic Review Family History of Problems with Anesthesia: No History of Problems with Anesthesia: No NPO: Yes ASA Class: III Final Preanesthetic Review: No Changes in Pt Med Stat, Meds/Allgs Chart Reviewed, Consent Obtained/Reviewed and Anes Risks/Benef Reviewed Patient Risk: Intermediate Procedure Risk: Intermediate Assessment/Block/Sedation in SS: Assess/Block/Sedation- Anesthetic Plan Anesthetic Plan: GA Disposition: Standard PACU and Inp. Admit - Standard Bed
[2023-02-14 12:19] LABS: COVID-19 Test Negative (Negative); IDNOW Serial# 08D9AD1C
[2023-02-15] VITALS (9 sets, daily range): BP systolic 100–114; BP diastolic 53–76; PULSE 70–97; RESP 11–20; TEMP 36.2–36.8; O2SAT 96–100; BMI 38.8
[2023-02-15] MEDS: Lactated Ringers 1,000 ML 999 ML IV (12:33)
[2023-02-15] MEDS: Scopolamine 1.5 MG PATCH.TD.3 TRANSDERMA (12:53)
[2023-02-15] MEDS: Aprepitant 32 MG/4.4 ML VIAL IVPUSH (12:54)
--- NOTE | 2023-02-15 13:42 | P.BOP_ITS ---
Brief Operative Note Date of Service: 02/15/23 Pre-op diagnosis: Severe obesity with comorbidities (see below) Post-op diagnosis: same Procedure: INITIAL PATIENT BMI ON PRESENTATION AT OUR OFFICE: 43.3 kg/m2 LAST BMI BEFORE SURGERY: 39.5 kg/m2 COMORBIDITIES: back pain, GERD, cholelithiasis, liver fibrosis ?The patient presented to the Weight Management Program with significant obesity that was negatively impacting the patient's comorbidities as listed above.? The program is a phased program with a special focus on preoperative medical weight management to promote substantial weight loss and prepare the patients for the second phase of the program: bariatric surgery. The patient participated in an intensive weekly lifestyle ?intervention and exercise program during which the patient ?has lost between the initial office visit and the last preoperative visit 21 lbs, or 8.32% of initial actual body weight. It was deemed appropriate for the patient to now have bariatric surgery. In light of the current Covid-19 pandemic and the well documented strong association of obesity and increased risk of worse outcomes if infected with Covid-19 (REFERENCES: https://pubmed.ncbi.nlm.nih.gov/22297048/ ,? ht tps://pubmed.ncbi.nlm.nih.gov/52668828/ ), any delay in undergoing bariatric surgery may lead to the patient's worsening health condition and increased?risk of more severe Covid-19 disease if infected. In addition a recent?study from [facility] published in [facility] on 10/05/2021 ([email or web address]/C:/[id number] [email or web address]) found that, among patients with obesity, substantial weight loss achieved with surgery was associated with improved outcomes of COVID-19 infection. The findings suggest that obesity can be a modifiable risk factor for the severity of COVID-19 infection. In addition, the patient met the BMI-criteria for bariatric surgery based on the BMI on initial presentation. The patient should not be penalized for achieving such weight loss because ?it is not sustainable long-term without surgical intervention and it was achieved in preparation for bariatric surgery ?under my direction and based on my published research ([email or web address]).pdf and? https://www.soard.org/article/[email or web address](71)26171-X/pdf ) ?that a 10% preoperative weight loss improves long-term weight loss after surgery and reduces perioperative complications.? Insurance carriers such as [facility] have endorsed my recommendations ?and have included in their policies criteria to include a 10% preoperative weight loss requirement. PROCEDURE: Esophago-gastroscopy, laparoscopic sleeve gastrectomy and laparoscopic gastropexy INDICATIONS: This is a 32 year-old female who was electively scheduled for laparoscopic, possibly open sleeve gastrectomy. The risks and complications of the procedure were discussed with the patient in advance, particularly the possibility of ; pulmonary embolism; staple line leak; bleeding; GERD; cardiac, pulmonary, or renal complications; as well as long-term problems such as insufficient weight loss, vitamin deficiency, strictures, or ulcers. The patient understood all the risks, and was in agreement to proceed with surgery. DESCRIPTION OF PROCEDURE: After informed consent was obtained from the patient, the patient was given preoperative antibiotics, and was transferred to the operating room. After successful induction of general anesthesia, pneumatic compression devices were placed on both lower extremities. An upper endoscopy was performed next. The oropharynx and esophagus appeared to be within normal limits. There was no diaphragmatic hernia present consistent with the findings of the preoperative upper GI. The stomach was entered. Then after all fluid and air were suctioned and the stomach was fully decompressed, the scope was withdrawn and secured in the mid esophagus. The patient was then prepped and draped in the usual sterile manner, and abdominal access was established at the right upper quadrant with the Sisi technique. A 12 mm blunt port was inserted, and the abdomen was insufflated with CO2 to a pressure of 15 mmHg. Under direct visualization, additional ports were placed, specifically two 5 mm Versi-step ports to the left upper quadrant, and a 5 mm Versi-Step port to the right upper quadrant. 1% lidocaine plain was used to infiltrate all port sites as well as all fascia defects. Following that, the patient was placed in a steep reverse Trendelenburg position. An additional 5 mm port was placed to the right flank for the Mediflex retractor that was used to retract the left lobe of the liver. The gastro-esophageal fat pad was opened with the ultrasonic device (Thunderbeat, Olympus) and the anterior esophagus and hiatus were exposed. The angle of His was opened with the ultrasonic device the fundus of the stomach from any diaphragmatic and splenic attachments. I then opened the gastrocolic ligament between the transverse colon and the greater curvature of the stomach with the ultrasonic device to enter the lesser sac and facilitate the ligation of the short gastric vessels. I started at a mid-point along the greater curvature and using the Thunderbeat, all short gastric vessels were divided all the way to the angle of His until the left kenisha was completely dissected at its entirety. I then divided the gastro-colic ligament distally to a distance of about 3-4 cm proximal to the pylorus. The stomach was then divided transversely with one Endo CHAN-45 purple, one CHAN- 45 orange loads and three CHAN-60 articulating orange loads using the AEON stapler and loads. Every effort was made that the gastric sleeve had a tubular shape and an even caliber throughout. Once the sleeve resection was completed, the staple line of the gastric sleeve was reinforced with Hemoclips. The resected stomach was retrieved without difficulty from the Sisi port. A gastropexy was then performed in order to prevent postoperative GERD and partial gastric volvulus. Several interrupted 2.0 Surgidac sutures were placed between the sleeve's staple line and the previously divided greater omentum and gastro-colic ligament using the Endo-Stitch device. ?An upper endoscopy was performed. There was no narrowing at the GE junction. The scope was easily advanced all the way to the pylorus which was clearly visualized. There was no narrowing anywhere and the sleeve's caliber was even throughout. The sleeve's staple line was inspected and there was no evidence of ischemia, bleeding or dehiscence. At that point the gastroscope was withdrawn from the patient?s mouth while we were decompressing the bowel and the stomach from any remaining air. I looked into the lesser sac to see how the sleeve was situating and it was situating well. There was no bleeding from the staple line, spleen, or short gastric vessels. The Mediflex retractor was removed, and the undersurface of the liver was inspected and there was no bleeding. The patient was placed in supine position. I closed the fascial defect of the 12 mm port site with a figure of eight #1 Polysorb suture. Then 30cc of Ropivacaine plain with 10 mg of Dexamethasone were used to infiltrate the fascial closure as well as all skin incisions. A total of 7ml Zynrelef was applied in the Sisi wound. At this point, the abdomen was deflated, all ports were removed under direct vision, and no bleeding was noted from any of the port sites. The skin incisions were irrigated with saline and were closed with 4-0 absorbable monofilament sutures. Steri-Strips and OpSites were used to cover all incisions. The patient was extubated and was transferred in stable condition to the recovery room for further care. I was present and performed all goldman parts of the procedure. Ms. Chiu was the assistant to the ceo. There were no residents to assist with this case. Paul Conner MD, PhD, FACS Surgeon: Alex Conner MD Anesthesia: GETA, local and other (TAP block and 7ml Zynrelef) Was an Cylinder Valve Repairer used for this Procedure?: No Cylinder Valve Repairer: Marina Chiu Estimated blood loss (mL): 10 IV fluids (mL): 2,500 Urine output (mL): 0 (No Moser to record output) Pathology: other (Stomach) Condition: stable Disposition: PACU
--- NOTE | 2023-02-15 13:45 | PM.PNGS ---
Subjective Subjective Date of Service: 02/16/23 Interval history: Feels well. Mild incisional pain. She is tolerating phase 1 bariatric diet Physical Exam Vital Signs: Vital Signs: Last Vital Signs Temp 97.9 F 02/15/23 11:46 Pulse 70 02/15/23 11:46 Resp 18 02/15/23 11:46 BP 114/76 02/15/23 11:46 Pulse Ox 98 02/15/23 11:46 O2 Del Method Room Air 02/15/23 11:46 BMI result Body Mass Index 38.8 GI: Inspection: Yes normal to inspection, Yes incision (clean, dry and intact) and Yes obesity Palpation (GI): Soft to palpation Extrem: Right lower extremity: normal to inspection (no calf tenderness) Left lower extremity: normal to inspection (no calf tenderness) Objective Data Active Medications Lactated Ringer's (Lr) 1,000 mls @ 100 mls/hr IVCONT .Q10H DODIE Lactated Ringer's (Lr) 1,000 mls @ 999 mls/hr IV .Q1H1M DODIE Stop: 02/15/23 13:45 Last Admin: 02/15/23 12:33 Dose: 999 mls/hr Documented By: VIANEY Labs 02/09/23 10:40 02/09/23 10:40 Procedures Date of Service Date of Service: 02/16/23 Progress Note: A&P Assessment and plan (1) Obesity: Status: Acute Assessment and Plan: s/p laparoscopic sleeve gastrectomy and gastropexy Doing well Will check am labs and if OK the patient will be discharged home (2) BMI 39.0-39.9,adult: Status: Acute (3) GERD (gastroesophageal reflux disease): Status: Acute (4) Liver fibrosis: Status: Acute (5) Cholelithiasis: Status: Acute (6) S/P laparoscopic sleeve gastrectomy: Status: Acute Time Spent With Patient Time: Total time managing care of this patient today ____ minutes. Quality Stroke Does the patient have a stroke diagnosis?: No VTE Prior VTE?: No VTE Risk Level:: Surgical - moderate VTE Device Contraindication: N/A - Device Ordered VTE Drug Contraindication: Treatment Not Indicated
--- NOTE | 2023-02-15 16:26 | PM.DS ---
DS: Providers Provider Date of Service: 02/16/23 Date of admission: 02/15/23 11:36 Primary care physician: Unknown Physician DS: Diagnosis Discharge Diagnosis (1) Obesity: Status: Acute (2) BMI 39.0-39.9,adult: Status: Acute (3) GERD (gastroesophageal reflux disease): Status: Acute (4) Liver fibrosis: Status: Acute (5) Cholelithiasis: Status: Acute DS: Summary Hospital Course Hospital Course: ADMITTING DIAGNOSIS: morbid obesity, IBS DISCHARGE DIAGNOSIS: same, s/p laparoscopic sleeve gastrectomy PAST SURGICAL HISTORY: alpingectomy PROCEDURE: upper endoscopy, laparoscopic sleeve gastrectomy DISCHARGE SUMMARY: History of Present Illness: The patient is a 32 year-old woman with a BMI of 43.2 kg/m2 and associated co-morbidities as described above. The patient had extensive work-up, lost 21lbs preoperatively and was electively scheduled for laparoscopic, possible open sleeve gastrectomy and gastropexy. Risks and complications of the surgery were discussed with the patient in advance, particularly the possibility of , pulmonary embolism, anastomotic leak, bleeding, bowel injury, GERD, cardiac, renal or pulmonary complications. The patient understood all the risks and was in agreement with the surgical plan. Hospital Course: The patient underwent an uneventful laparoscopic sleeve gastrectomy with gastropexy on the day of admission. Postoperatively, the patient was transferred to the surgical floor. The patient received IV Acetaminophen and IV dilaudid for pain control. Patient was started on bariatric phase 1 diet POD #0. On postoperative day one, the patient was feeling well without nausea, vomiting, fevers, or tachycardia. The patient had some mild incisional pain and the abdomen was soft. On the morning of postoperative day one, the patient was continued on 1 ounce of water or ice every half hour. During the day, the patient did fairly well, having some incisional pain, but able to ambulate adequately and to tolerate liquids well. Since the patient is doing well, we decided that the patient was ready to be discharged. The patient was given instructions to follow-up with me next week and to call my office for any fever over 101, persistent abdominal pain, nausea, vomiting, GERD, symptoms of DVT such as calf tenderness, or leg swelling, or pulmonary embolism such as chest pain or shortness of breath. The patient was also instructed to drink 40-60 ounces of liquids per day using the 1-ounce cups. The patient had been given prescriptions for Tylenol for pain, Zofran prn for nausea, and pantoprazole and carafate previously. The patient was encouraged to ambulate and use the incentive spirometer. The patient was allowed to shower, but no baths, and encouraged to stay active at home. All of these instructions were given to the patient personally. All questions were answered and the patient understood all instructions, the instructions were also given to the patient in print. Time Spent with Patient Time attestation: Total time managing care of this patient today ____ minutes. Discharge coordination time: Less than 30 minutes Quality: Safe Use of Opioids Does Pt have an Active Cancer Diagnosis on the Problem List?: No Quality: Stroke Does the patient have a stroke diagnosis?: No Physical Exam Vital Signs: Vital Signs: Last Vital Signs Temp 97.9 F 02/15/23 11:46 Pulse 70 02/15/23 11:46 Resp 18 02/15/23 11:46 BP 114/76 02/15/23 11:46 Pulse Ox 98 02/15/23 11:46 O2 Del Method Room Air 02/15/23 11:46 BMI result Body Mass Index 38.8 DS: Data Data Completed and Pending Pending studies at discharge: Pending at discharge 02/15/23 15:06 Surgical [PTH] Routine Discharge Plan Discharge Anticipated Discharge Date/Time: 02/16/23 10:56 Patient Disposition: Home, Self-Care Discharge Diagnosis: s/p sleeve gastrectomy Referrals: Physician,Unknown J [Primary Care Provider] - 1 Week Discharge Medications: Continued sucralfate 100 mg/mL suspension 10 ml PO BID 90 Days Qty: 1800 0RF ondansetron 4 mg tablet,disintegrating 4 mg PO Q12H PRN (Reason: Nausea And Vomiting) Rx Instructions: Only take one every 12 hours as needed if you have nausea pantoprazole 40 mg tablet,delayed release (DR/EC) 40 mg PO DAILY Qty: 30 2RF Discontinued docusate sodium [Colace] 100 mg capsule 100 mg PO DAILY Qty: 30 2RF cholecalciferol (vitamin D3) 125 mcg (5,000 unit) capsule 125 mcg PO DAILY Qty: 30 2RF Discharge Orders: Discharge Order (Routine); Ordered 02/16/23 Ordered By: Alex Conner Activity on Discharge: No heavy lifting Stand Alone Forms: Patient Portal Discharge page Care Plan Goals: weight loss Health Concerns: obesity Plan of Treatment: No tub baths, sex or returning to work until discussed at first post op appointment. No exercise, alcohol, tobacco or illegal drug use. Continue to use incentive spirometer hourly while awake. Walk in home for 5- 10 minutes every 2 hours during the first week. Continue phase 1 diet today and start phase 2 diet tomorrow morning. Follow all instructions in the bariatric handbook and call with any questions. 1. Please call your doctor or come back to the emergency room should any new symptoms arise. 2. You will receive a courtesy call from [facility] 24-48 hours after discharge. 3. Activity: abstain from alcohol, practice limited stair climbing, no bending, no driving, no exercise, no illicit substances, no lifting, no sex, no tub bath, no work. 4. Diet: continue as discussed with bariatric team.. 5. Dressing Change/Wound Care: Do not change or remove surgical dressings unless they are wet or soiled. 6. Call your doctor if: - Your temperature exceeds 101.5 F - You experience excessive pain or swelling - You have an unexpected reaction to medication - You have excessive bleeding - You experience continued vomiting/nausea - Your incision begins to separate - Your incision shows signs of infection such as increased redness, swelling, excessive pain, heat, or drainage (light blood or clear fluid is normal) 7. General instructions: No lifting greater than 5 lbs for the next 4 weeks[address] driving within 24 hours of taking narcotic pain medications. If you do not move your bowels in the next 2 days, please take milk of magnesia over the counter. Please follow the post op diet and do not advance your diet until you are seen in the office in about 2 weeks. Please walk around your home every hour or two to prevent blood clots from forming in your legs. You do not need to wake from sleeping to walk. Please sleep in a bed or couch to prevent kinking at the hips and knees. Please take your incentive spirometer (your lung medical doctor) home with you and use it for the next few days to prevent pneumonias. You may shower, no hot tubs, baths or swimming pools. Please call the office with any questions or concerns such as increasing abdominal pain, fever, chills, shortness of breath, chest pain, leg pain or swelling, or redness or drainage from your incisions. Do not hesitate to contact the office with any questions at . The patient's medical history has been reviewed and they are considered low risk for post op DVT and therefore DVT prophylaxis is not considered necessary. Travel after surgery was reviewed. The patient has not disclosed any travel plans during the first 30 days after surgery and they have been advised that within the first 30 days after surgery any bus, plane, train or car travel over 2 hours in duration is contraindicated due to the possibility of developing blood clots from immobility. Any travel, needs to include periods of ambulation of 10 minutes in duration every 2 hours. The patient was instructed to discuss any plans for travel during this period with their bariatric surgeon. Assessment: s/p sleeve gastrectomy Discharge Date/Time: 02/16/23 10:08
[2023-02-15 16:56] LABS: Hematocrit 37.2 % (37.0-47.0); Hemoglobin 13.1 g/dl (12.0-16.0)
[2023-02-15 17:35] LABS: Anion Gap 12 (12-20); Blood Urea Nitrogen 9 mg/dL (9-16); Calcium 8.8 mg/dL (8.4-10.2); Carbon Dioxide 22 mmol/L (22-29); Chloride 107 mmol/L (96-108); Estimated Glomerular Filt Rate > 60; Glucose Random 106 mg/dL (60-115); Potassium 4.4 mmol/L (3.3-5.1); Sodium 137 mmol/L (135-145)
[2023-02-15] MEDS: Lactated Ringers 1,000 ML 100 ML IVCONT (17:43)
[2023-02-15] MEDS: ondansetron HCL 4 MG/2 ML VIAL IVPUSH (18:21)
[2023-02-15] MEDS: ceFAZolin Sodium/Dextrose,Iso 2 GM/50 ML PIGGYBACK IV (19:45)
[2023-02-15] MEDS: Famotidine/PF 20 MG/2 ML VIAL IVPUSH (20:29)
[2023-02-15] MEDS: Acetaminophen 1,000 MG/100 ML PIGGYBACK 400 MG IV (20:31)
[2023-02-15] MEDS: HYDROmorphone HCl 0.5 MG/0.5 ML SYRINGE 0.25 MG IVPUSH (23:10)
--- NOTE | 2023-02-15 23:59 | PC.NURSE ---
PT vomited scant amount of bloody secretions around 8 pm only once report given to 11-7a rn
[2023-02-16] VITALS: BP 118/62; PULSE 72; RESP 16; TEMP 36.3; O2SAT 98
[2023-02-16] MEDS: Acetaminophen 1,000 MG/100 ML PIGGYBACK 400 MG IV ×2 (03:17→09:24)
[2023-02-16] MEDS: Lactated Ringers 1,000 ML 100 ML IVCONT (03:21)
[2023-02-16 03:41] VITALS: BP 105/58; PULSE 64; RESP 16; TEMP 36.6; O2SAT 95
[2023-02-16 05:40] LABS: Basophils Percent Auto 0.1 % (0-2); Hematocrit 37.8 % (37.0-47.0); Imm Gran Abs Auto 0.05 X10*3/uL (0.00-0.03); Imm Gran Pct Auto 0.5 % (0.0-0.4); Lymphocytes Absolute Auto 0.8 X10*3/uL (1.2-4.9); Lymphocytes Percent Auto 7.6 % (20-40); MANUAL DIFF FLAG SCAN; Mean Corpuscular HGB Conc 34.4 g/dl (31.0-35.0); Mean Corpuscular Hemoglobin 30.4 pg (27.0-33.0); Mean Corpuscular Volume 88.5 fL (80.0-98.0); Mean Platelet Volume 11.3 fL (9.4-12.3); Monocytes Absolute Auto 0.2 X10*3/uL (0.1-1.2); Monocytes Percent Auto 1.6 % (2-11); Neutrophils Absolute Auto 9.5 x10*3/uL (2.0-8.3); Neutrophils Percent Auto 90.2 % (45-73); Platelet Count 224 X10*3/uL (160-400); Red Blood Count 4.27 X10*6/uL (4.20-5.50); Red Cell Distribution Width 11.6 % (11.0-16.0); SCAN SMEAR FLAG 1; White Blood Count 10.5 X10*3/uL (4.8-10.8)
[2023-02-16 06:11] LABS: Anion Gap 10 (12-20); Blood Urea Nitrogen 8 mg/dL (9-16); Calcium 9.1 mg/dL (8.4-10.2); Carbon Dioxide 26 mmol/L (22-29); Chloride 108 mmol/L (96-108); Creatinine Clr Calc Pharmacy 103.2; Estimated Glomerular Filt Rate > 60; Glucose Random 110 mg/dL (60-115); Potassium 4.7 mmol/L (3.3-5.1); Sodium 139 mmol/L (135-145)
[2023-02-16 06:14] LABS: SLIDE REVIEW VERIFIED
--- NOTE | 2023-02-16 07:03 | HO.POSTANES ---
Post Anesthesia Evaluation Post Anesthesia Evaluation Vital Signs: Vital Signs Temp Pulse Resp BP Pulse Ox O2 Del Method O2 Flow Rate 02/16/23 03:41 97.8 F 64 16 105/58 L 95 Room Air 02/16/23 00:00 97.4 F 72 16 118/62 98 Room Air 02/15/23 19:33 98.3 F 75 18 105/54 L 100 Nasal Cannula 2 Anesthesia: General Endotracheal-GETA Mental Status: Awake Pain Control: Satisfactory Nausea/Vomiting: None Hydration: Adequate Anesthesia-Related Issues: No Anes. Related Issues
[2023-02-16 07:10] VITALS: BP 116/56; PULSE 81; RESP 20; TEMP 36.2; O2SAT 94
[2023-02-16] MEDS: Famotidine/PF 20 MG/2 ML VIAL IVPUSH (07:30)
--- NOTE | 2023-02-16 07:39 | PHA.MEDREC ---
Pharmacy Consult ? Medication Reconciliation Pharmacy has completed the medication reconciliation. Reviewed med rec done by nursing
--- NOTE | 2023-02-16 11:03 | MHC.CM.PN ---
pt dcd home no skilled services ordered by
== END 2023-02-16 10:08 | disposition home or self-care (01) | DRG 403 ==
LOC: HO.SSSA 12:58 → HO.S3 17:15
PROVIDERS: Physician Assistant; Physician Assistant Surgical; Admitting Provider Surgery; PCP Internal Medicine; Visit Provider Surgery
PROC: 0DB64Z3 Excision of Stomach, Percutaneous Endoscopic Approach, Vertical (ICD-10-PCS; CPT 43845; principal; 2023-02-15 13:30)
DX: E66.01 Morbid (severe) obesity due to excess calories (principal); K74.00 Hepatic fibrosis, unspecified; K21.9 Gastro-esophageal reflux disease without esophagitis; K80.20 Calculus of gallbladder without cholecystitis without obstruction; Z68.39 Body mass index [BMI] 39.0-39.9, adult; Z20.822 Contact with and (suspected) exposure to COVID-19; Z79.899 Other long term (current) drug therapy
CPT/HCPCS: 36415; 80048; 80053; 80061; 83036; 83525; 84443; 85014; 85018; 85025; 85610; 85730; 86140; 86850; 86900; 86901; 87635; 88307; 88342; A4649; C9088; C9145; J0131; J0690; J1100; J1170; J2250; J2370; J2405; J2795; J3010

== ENCOUNTER → 2023-02-22 10:27 | Outpatient (BNVA) | payer OTHER, SELFPAY | PROVIDERS: Visit Provider Physician Assistant Surgical | DX: Z48.815 Encounter for surgical aftercare following surgery on the digestive system (principal); Z98.84 Bariatric surgery status | CPT/HCPCS: 99212 ==

== ENCOUNTER → 2023-03-17 13:19 | Outpatient (BNVA) | payer OTHER, SELFPAY | PROVIDERS: Visit Provider Physician Assistant Surgical | DX: E66.9 Obesity, unspecified (principal); Z68.36 Body mass index [BMI] 36.0-36.9, adult; Z90.3 Acquired absence of stomach [part of] | CPT/HCPCS: 99212 ==

== ENCOUNTER → 2023-03-30 13:55 | Outpatient (BNVA) | payer OTHER, SELFPAY | PROVIDERS: Visit Provider Advanced Practice Midwife ==

== ENCOUNTER 2023-08-15 04:45 | Emergency (ER) | payer OTHER, SELFPAY ==
--- NOTE | ~2023-08-15 | US_ITS ---
EXAMINATION: US ABDOMEN LIMITED CLINICAL INFORMATION: Pain and vomiting.. COMPARISON: None available. TECHNIQUE: Real-time imaging of the right upper quadrant abdominal viscera. FINDINGS: PANCREAS: Not seen. LIVER: Normal. The liver is normal in size. The liver contour is normal. Parenchymal echogenicity is normal. No focal hepatic lesion. There is no intrahepatic biliary duct dilatation seen. GALLBLADDER: The gallbladder is physiologically distended. Multiple gallstones are noted. There is no gallbladder wall thickening or pericholecystic fluid. COMMON BILE DUCT: Normal in caliber measuring 0.4 cm in diameter. FREE FLUID: None. US/US abdomen limited IMPRESSION: Cholelithiasis. No definitive supporting evidence for cholecystitis.
--- NOTE | ~2023-08-15 | CT_ITS ---
EXAMINATION: CT ABDOMEN AND PELVIS WITHOUT CONTRAST CLINICAL INFORMATION: Abdominal pain. COMPARISON: 06/08/2022 TECHNIQUE: Multidetector volumetric imaging was performed from the superior aspect of the liver through the pubic symphysis. Sagittal and coronal reformatted images were obtained on the technologist's workstation. This CT examination was performed using dose optimization techniques as appropriate, variously including the following: *Automated exposure control *Adjustment of mA and/or kV according to patient size (this includes techniques or standardized protocols for targeted exams where dose is matched to indication/reason for exam; i.e. extremities or head) *Use of iterative reconstruction technique DLP: 617 mGy-cm FINDINGS: LUNG BASES: The visualized lung bases are unremarkable. LIVER, GALLBLADDER, AND BILIARY TREE: The noncontrast liver is normal in size and contour. Periportal edema. No biliary ductal dilatation is present. The gallbladder is distended without obvious pericholecystic inflammatory changes. No radiopaque gallstones are identified. PANCREAS: Unremarkable. SPLEEN: Not enlarged. ADRENAL GLANDS: No adrenal mass. KIDNEYS AND URETERS: The kidneys are symmetric in size. No hydronephrosis, hydroureter, or calculi seen. No perinephric stranding. BLADDER: Unremarkable. GASTROINTESTINAL TRACT: Status post gastric surgery. Small and large bowel loops are of normal caliber. No small bowel obstruction. Appendix is within normal limits. ABDOMINAL WALL: Tiny fat-containing umbilical hernia. LYMPH NODES: No bulky abdominal or pelvic lymphadenopathy. VASCULAR: Normal caliber abdominal aorta. PELVIC VISCERA: Unremarkable. OSSEOUS STRUCTURES: Bilateral hip pins. Sclerotic changes of the sacroiliac joints. No destructive bone lesions. CT/CT abdomen pelvis wo IV con IMPRESSION: Distended gallbladder. Periportal edema. No radiopaque calculi.
[2023-08-15 04:46] VITALS: BP 104/56; PULSE 71; RESP 18; TEMP 36.9; O2SAT 100; BMI 29.7
[2023-08-15 05:00] VITALS: BP 108/44; PULSE 67; RESP 17; TEMP 37; O2SAT 100
--- NOTE | 2023-08-15 05:14 | ED_ITS ---
HPI - Abdominal Pain General Chief Complaint: Abdominal Pain Stated Complaint: abd pain Time Seen by Provider: 08/15/23 05:12 Source: patient and family Mode of arrival: ambulatory Limitations: no limitations History of Present Illness HPI narrative: a 33-year-old female came in for evaluation of right upper and epigastric abdominal pain started at 03:00 woke the patient up from sleep, patient felt nauseous and vomited twice. No diarrhea, normal bowel movement yesterday and passing flatus, patient ate Burger last night surgery of gastric bypass in February. Related Data Previous Rx's Medication Instructions Recorded sucralfate 100 mg/mL oral 10 ml PO BID 90 days #1,800 mL 02/16/23 suspension pantoprazole 40 mg tablet,delayed 40 mg PO DAILY 90 days #90 tabs 03/02/23 release Allergies Allergy/AdvReac Type Severity Reaction Status Date / Time No Known Allergies Allergy Verified 08/15/23 04:50 Review of Systems Review of Systems All other systems are reviewed and are negative Constitutional: Reports as per HPI and Reports no additional constitutional complaints Eyes: Reports as per HPI and Reports no additional eye complaints Reports system reviewed and no additional complaints, except as documented Cardiovascular: Reports as per HPI and Reports no additional cardiovascular complaints Respiratory: Reports as per HPI and Reports no additional respiratory complaints Gastrointestinal: Reports as per HPI and Reports no additional gastrointestinal complaints Genitourinary: Reports no additional female genitourinary complaints Musculoskeletal: Reports no additional musculoskeletal complaints Skin/Breast: Reports system reviewed and no additional complaints, except as docu Psychiatric: Reports no additional psychiatric complaints Endocrine: Reports no additional endocrine complaints Hematologic/Lymphatic: Reports no additional hematologic/lymphatic complaints Allergic/Immunologic: Reports no additional allergic/immunologic complaints Reports system reviewed and no additional complaints, except as documented and Reports Abnormal speech present [facility] Past Medical History Medical History Cholelithiasis GERD (gastroesophageal reflux disease) Postoperative nausea Renal calculi BMI 39.0-39.9,adult Back pain Morbid obesity Irritable bowel syndrome with both constipation and diarrhea Rectal bleeding Surgical History Hx of laparoscopic partial gastrectomy Hx of unilateral salpingectomy Hx of unilateral salpingectomy History of surgery Family History Family History Mother No problems noted. Father No problems noted. Brother Kidney disease Son No problems noted. Son No problems noted. Son No problems noted. Social History Social History Household Members: Family Household Members Other:: minor children Housing: House Are you a primary animal caretaker to a significant other at home: Yes (minor children) Do you presently have visiting nurse or other home services: No Alcohol intake: never Patient Tobacco Use Status: Never used Tobacco Smoked in Last 30 Days: No Use of substances other than those prescribed or required for medical reasons: No Advance Directives: No Advance Directives Information Provided: No Physical Exam ED Vital Signs: Vital Signs - 24 hr 08/15/23 04:46 08/15/23 05:00 Temperature 98.4 F 98.6 F Pulse Rate 71 67 Respiratory Rate 18 17 Blood Pressure 104/56 L 108/44 L Pulse Oximetry 100 100 Oxygen Delivery Method Room Air Room Air BMI result Body Mass Index 29.7 Vital signs have been reviewed and appear to be correct. Blood pressure elevated. Heart rate normal. Respiratory rate normal. Temperature normal. Oxygen saturation normal. Appearance: Alert. Oriented X3. No acute distress. Head: Normal external exam. Normocephalic. Atraumatic. No Lopez signs noted. No raccoon eyes noted Eyes: PERRLA. EOMI. Conjunctiva and sclera normal. Eyelids normal. ENT: TM's Normal. Pharynx normal. Uvula midline. Moist mucous membranes. No trismus noted. No drooling noted. No muffled voice noted. Neck: Normal inspection. Neck supple. FROM. No adenopathy. Thyroid Normal. No meningeal signs. No neck mass noted. CVS: Normal heart rate and rhythm. Heart sound normal. No murmurs noted. Pulses normal throughout. Respiratory: No respiratory distress. Painless inspiration. Breath sounds normal. No wheezes/rales/rhonchi noted. Chest nontender. No accessory muscle usage noted or decreased air movement noted. Abdomen: Soft , epigastric tenderness, no rebound tenderness, no guarding. Bowel sounds normal in all 4 quadrants. No distention noted. No organomegaly noted. No visible injury noted. Back: No CVA tenderness. Full range of motion noted. Skin: Skin warm and dry. Normal skin color. Normal skin turgor. No rashes/lesions/lacerations noted. Extremities: No lower extremity edema. Extremities exhibit normal range of motion. Extremities nontender. Neuro: Oriented X 3. Cranial nerve exam: II-XII are grossly intact No motor deficit. No sensory deficit. Reflexes normal. Course Reevaluation(s) Reevaluation #1: Upper abdominal pain/ right upper quadrant pain, history of sleeve gastric bypass his ultrasound is showing cholelithiasis with no acute cholecystitis conside of the abdomen pelvis to rule out other pathology case signed out to Dr. Anderson. Time: 06:50 Medical Decision Making Differential Diagnosis Differential Diagnoses: The differential diagnosis associated with the presentation includes ( gastritis, appendicitis, kidney stone, acute cholecystitis, cholelithiasis, pancreatitis, colitis, gastric bypass complication, severe anemia, electrolyte abnormality.) Admission/Observation Consideration of admission/observation: Escalation of care including admission/observation considered Lab Data MDM Lab Attestation statement: I reviewed the patient's lab results. 08/15/23 05:22 08/15/23 05:22 Labs: Lab Results 08/15/23 Range/Units 05:22 WBC 4.7 L (4.8-10.8) X10*3/uL RBC 3.91 L (4.20-5.50) X10*6/uL Hgb 12.1 (12.0-16.0) g/dl Hct 35.3 L (37.0-47.0) % MCV 90.3 (80.0-98.0) fL MCH 30.9 (27.0-33.0) pg MCHC 34.3 (31.0-35.0) g/dl RDW 11.9 (11.0-16.0) % Plt Count 142 L D (160-400) X10*3/uL MPV 11.9 (9.4-12.3) fL Immature Gran % (Auto) 0.2 (0.0-0.4) % Neut % (Auto) 53.5 (45-73) % Lymph % (Auto) 35.5 (20-40) % [place] % (Auto) 8.5 (2-11) % Eos % (Auto) 2.1 (0-4) % Baso % (Auto) 0.2 (0-2) % Lymph # (Auto) 1.7 (1.2-4.9) X10*3/uL [place] # (Auto) 0.4 (0.1-1.2) X10*3/uL Eos # (Auto) 0.1 (0.0-0.4) X10*3/uL Baso # (Auto) 0.0 (0.0-0.2) X10*3/uL Abs Immat Gran (auto) 0.01 (0.00-0.03) X10*3/uL Absolute Neuts (auto) 2.5 (2.0-8.3) x10*3/uL Absolute Nucleated RBC 0.020 H (0.0-0.012) X10*3/uL Nucleated RBC % (auto) 0.4 H (0.0-0.2) /100WBC Smear Tech's Comments VERIFIED Sodium 141 (135-145) mmol/L Potassium 4.4 (3.3-5.1) mmol/L Chloride 109 H (96-108) mmol/L Carbon Dioxide 25 (22-29) mmol/L Anion Gap 11 L (12-20) BUN 13 (9-16) mg/dL Creatinine 0.95 (0.5-1.4) mg/dL Estim Creat Clear Calc 86.1 Estimated GFR > 60 Random Glucose 113 (60-115) mg/dL Calcium 9.2 (8.4-10.2) mg/dL Total Bilirubin 0.5 (0.0-1.0) mg/dL Direct Bilirubin 0.1 (0.0-0.5) mg/dL AST 38 H (5-31) U/L ALT 11 (0-31) U/L Alkaline Phosphatase 59 (39-117) U/L Troponin I High Sens < 2.7 (<3.5-17.0) ng/L Total Protein 8.0 (6.5-8.0) g/dL Albumin 3.8 (3.5-5.0) g/dL Lipase 35 (8-78) U/L Independent Interpretation I performed an independent interpretation of an: Ultrasound (Cholelithiasis. No definitive supporting evidence for cholecystitis.) Medications Administered Discontinued Medications Generic Name Dose Route Start Last Admin Trade Name Freq PRN Reason Stop Dose Admin Famotidine 20 mg 08/15/23 05:18 08/15/23 05:57 Famotidine/Pf 20 Mg/2 Ml Vial IVPUSH 08/15/23 05:19 20 mg ONCE ONE Administration Sodium Chloride 1,000 mls @ 999 mls/hr 08/15/23 05:12 08/15/23 05:57 Ns IV 08/15/23 06:12 999 mls/hr .Q1H1M ONE Administration Morphine Sulfate 1 mg 08/15/23 05:18 08/15/23 05:57 Morphine Sulfate 2 Mg/Ml Cartridge IVPUSH 08/15/23 05:19 1 mg ONCE ONE Administration Protocol Ondansetron HCl 4 mg 08/15/23 05:18 08/15/23 05:58 Ondansetron Hcl 4 Mg/2 Ml Vial IVPUSH 08/15/23 05:19 4 mg ONCE ONE Administration Discharge Plan Discharge Clinical Impression: Abdominal pain Patient Disposition: Still a Patient Prescriptions: No Action sucralfate 100 mg/mL suspension 10 ml PO BID 90 Days Qty: 1800 0RF pantoprazole 40 mg tablet,delayed release (DR/EC) 40 mg PO DAILY 90 Days Qty: 90 1RF
--- NOTE | 2023-08-15 05:30 | PC.NURSE ---
iv established; labs drawn. pt to u/s at this time.
[2023-08-15 05:47] LABS: Alanine Aminotransferase 11 U/L (0-31); Albumin Level 3.8 g/dL (3.5-5.0); Alkaline Phosphatase 59 U/L (39-117); Anion Gap 11 (12-20); Aspartate Amino Transferase 38 U/L (5-31); Bilirubin Direct 0.1 mg/dL (0.0-0.5); Bilirubin Total 0.5 mg/dL (0.0-1.0); Blood Urea Nitrogen 13 mg/dL (9-16); Calcium 9.2 mg/dL (8.4-10.2); Carbon Dioxide 25 mmol/L (22-29); Chloride 109 mmol/L (96-108); Creatinine Clr Calc Pharmacy 86.1; Estimated Glomerular Filt Rate > 60; Glucose Random 113 mg/dL (60-115); Lipase 35 U/L (8-78); Potassium 4.4 mmol/L (3.3-5.1); Sodium 141 mmol/L (135-145)
[2023-08-15 05:52] LABS: Troponin-I High Sensitivity < 2.7 ng/L (<3.5-17.0)
[2023-08-15 05:55] LABS: Basophils Percent Auto 0.2 % (0-2); Eosinophils Absolute Auto 0.1 X10*3/uL (0.0-0.4); Eosinophils Percent Auto 2.1 % (0-4); Hematocrit 35.3 % (37.0-47.0); Hemoglobin 12.1 g/dl (12.0-16.0); Imm Gran Abs Auto 0.01 X10*3/uL (0.00-0.03); Imm Gran Pct Auto 0.2 % (0.0-0.4); Lymphocytes Absolute Auto 1.7 X10*3/uL (1.2-4.9); Lymphocytes Percent Auto 35.5 % (20-40); MANUAL DIFF FLAG SCAN; Mean Corpuscular HGB Conc 34.3 g/dl (31.0-35.0); Mean Corpuscular Hemoglobin 30.9 pg (27.0-33.0); Mean Corpuscular Volume 90.3 fL (80.0-98.0); Monocytes Absolute Auto 0.4 X10*3/uL (0.1-1.2); Monocytes Percent Auto 8.5 % (2-11); NRBC Pct Auto 0.4 /100WBC (0.0-0.2); Neutrophils Absolute Auto 2.5 x10*3/uL (2.0-8.3); Neutrophils Percent Auto 53.5 % (45-73); PLT CLUMP 1; Red Blood Count 3.91 X10*6/uL (4.20-5.50); Red Cell Distribution Width 11.9 % (11.0-16.0); SCAN SMEAR FLAG 1
[2023-08-15] MEDS: Morphine Sulfate 2 MG/ML CARTRIDGE 1 MG IVPUSH (05:57)
[2023-08-15] MEDS: 0.9 % Sodium Chloride 1,000 ML 999 ML IV (05:57)
[2023-08-15] MEDS: Famotidine/PF 20 MG/2 ML VIAL IVPUSH (05:57)
[2023-08-15] MEDS: ondansetron HCL 4 MG/2 ML VIAL IVPUSH (05:58)
--- NOTE | 2023-08-15 06:09 | PC.NURSE ---
pt return from u/s. pt medicated per mar. ivf infusing. pt requested pillow/warm blanket; given to pt. lights dimmed. call cooper within reach.
[2023-08-15 06:12] LABS: White Blood Count 4.7 X10*3/uL (4.8-10.8)
[2023-08-15 06:13] LABS: Mean Platelet Volume 11.9 fL (9.4-12.3); Platelet Count 142 X10*3/uL (160-400)
[2023-08-15 06:15] LABS: SLIDE REVIEW VERIFIED
[2023-08-15 07:05] VITALS: TEMP 36.9
--- NOTE | 2023-08-15 07:08 | PC.NURSE ---
assumed care of pt at 0700. pt a&o x4, pleasant, calm, and cooperative. pt is resting quietly on stretcher, reporting 1/10 pain to upper abdomen. pt provided with UA cup and aware sample is needed. pt has 4 blankets and still reporting being cold. oral temp taken, 98.5. no fever. pt provided with warm blanket. call cooper within pt reach. rr even/unlabored. plan of care ongoing.
--- NOTE | 2023-08-15 09:22 | PC.NURSE ---
pt sleeping. rr even/unlabored. awaiting to obtain UA.
[2023-08-15 11:11] VITALS: BP 107/64; PULSE 71; RESP 16; O2SAT 98
[2023-08-15 11:17] LABS: Appearance Urine Clear; Color Urine Dark Yellow; Glucose Urine UA Negative (Negative); Leukocyte Esterase Urine Negative (Negative); Nitrite Urine Negative (Negative); Specific Gravity - Urine 1.025 (1.005-1.025); Urine Blood Negative (Negative); Urine Ketones 15 mg/dL (Negative); Urine Protein Negative (Neg-Trace)
[2023-08-15 11:20] LABS: UPreg QC Valid YES; Urine Pregnancy NEGATIVE (NEGATIVE)
== END 2023-08-15 11:26 | disposition home or self-care (01) ==
PROVIDERS: Emergency Medicine; Emergency Provider Emergency Medicine; PCP Physician Assistant Surgical
DX: R10.11 Right upper quadrant pain (principal); R10.13 Epigastric pain; R11.2 Nausea with vomiting, unspecified; Z79.899 Other long term (current) drug therapy
CPT/HCPCS: 36415; 74176; 76705; 80048; 80076; 81003; 81025; 83690; 84484; 85025; 96361; 96374; 96375; 99284; 99285; J2270; J2405

== ENCOUNTER 2023-08-17 10:16 | Outpatient (AMB) | payer OTHER, SELFPAY ==
--- NOTE | 2023-08-17 10:19 | A.OFFVIS_ITS ---
Intake Vital Signs 08/17/23 10:21 Height 5 ft 4 in Weight 177 lb 11.081 oz BMI 30.5 BP 111/59 L Blood Pressure Location Rt brachial Position Sitting Pulse 71 Pulse Source Pulse Oximeter Temp 97.1 F Temp Source Tympanic Pulse Oximetry (%) 100 Oxygen Delivery Method Room Air Intake Visit Reasons: gallbladder Allergies No Known Allergies Allergy (Verified 08/17/23 10:22) HPI HPI Comments History of Present Illness Details The patient is a 33-year-old woman who is status post laparoscopic sleeve gastrectomy for obesity February 15, 2023. She is seen by way of the [facility] department due to an episode of biliary colic that occurred on 08/15/2023 after eating a burger. She entered the surgical weight loss program at a weight of 252 lb and is congratulated at the interval weight loss to today's weight of 177 lb representing a 75 lb weight loss. The patient reports an episode of biliary colic that occurred after eating a plane beef burger, several ounces, and then she developed fairly prompt colicky symptoms in her right upper quadrant associated with nausea. She notes a family history of her brother having cholecystectomy due to biliary colic and is unawar e of any GI malignancy in the immediate family. She was prescribed oxycodone and tolerated it, and sent for discussion of cholecystectomy. Past surgical history includes sleeve gastrectomy Feb, 2023 [facility] Medical History (Updated 08/17/23 @ 10:53 by Maximilian Graham MD, FACS, FASMBS) Cholelithiasis GERD (gastroesophageal reflux disease) Postoperative nausea Renal calculi BMI 39.0-39.9,adult Back pain Morbid obesity Irritable bowel syndrome with both constipation and diarrhea Rectal bleeding Surgical History Hx of laparoscopic partial gastrectomy Hx of unilateral salpingectomy Hx of unilateral salpingectomy History of surgery Family History Mother No problems noted. Father No problems noted. Brother Kidney disease Son No problems noted. Son No problems noted. Son No problems noted. Social History Household Members: Family Household Members Other:: minor children Housing: House Are you a primary restorative care technician to a significant other at home: Yes (minor children) Do you presently have visiting nurse or other home services: No Alcohol intake: never Patient Tobacco Use Status: Never used Tobacco Review of Systems Const All systems reviewed & are unremarkable except as noted in HPI and below Physical Exam Vital Signs: BMI result Body Mass Index 30.5 The patient is non-toxic & in good spirits NC/AT, PERRLA, EOMI Mood, affect & judgment all appear appropriate Sclera anicteric conjunctiva pink and moist Oropharynx is clear with no aphthous ulcers, Mallampati class 4, mucous membranes moist Neck is supple with no masses, adenopathy or bruits Heart is regular, normal S1-S2 no rubs or murmurs Lungs are clear and equal anteriorly with no audible wheezing, rubs or dullness to percussion Abdomen is overweight with no demonstrable hernias. No significant pain is present on today's exam. No HSM, rebound, rigidity, guarding, masses or bruits are present. Rectal exam is deferred Skin has good turgor and is free of rashes Extremities free of cyanosis clubbing edema Results Reviewed Results Reviewed: [facility] [place] [facility] note dated 08/15/2023 is reviewed Patient underwent abdominal ultrasound that confirmed cholelithiasis common gallbladder wall thickening and a [address] images and report are reviewed and showed periportal edema with no gallbladder wall thickening or inflammation Patient's white blood cell count was 4.7, hemoglobin 12.1, platelet count was slightly depressed at 142 K AST is slightly elevated at 38, total bilirubin, alk-phos lipase were all normal BUN 13, creatinine 0.95, electrolytes within normal parameters Assessment & Plan Assessment & Plan (1) Cholelithiasis: Code(s): K80.20 - Calculus of gallbladder without cholecystitis without obstruction (2) S/P laparoscopic sleeve gastrectomy: Code(s): Z98.84 - Bariatric surgery status (3) Liver fibrosis: Code(s): K74.00 - Hepatic fibrosis, unspecified (4) GERD (gastroesophageal reflux disease): Code(s): K21.9 - Gastro-esophageal reflux disease without esophagitis (5) Constipation: Code(s): K59.00 - Constipation, unspecified Plan The patient is congratulated on her 75 lb weight loss since surgical weight loss/sleeve gastrectomy in February of this year. We did discuss her family history of biliary tract disease and any type of food could have triggered an episode of biliary colic but she is advised to stay on a low-fat diet in the meantime for both weight loss and precipitation of biliary colic symptoms. I explained the symptoms of biliary colic and recommended laparoscopic cholecystectomy. I reviewed the option of continued observation and 2nd opinion which was declined. I also reviewed the inherent risks to surgery which include, but are not limited to: Bleeding that could require another operation or blood transfusion, the need for open surgery, the unlikely but possible issue of bile leak that could require an ERCP, the risk of retained common duct stones that could require an ERCP, the risk of common bile duct injury which would require transfer to a larger institution for another operation. Patient seemed to understand her options, declined a housekeeping lead or 2nd opinion and wants to proceed. Typical perioperative course including same-day surgery, activity restrictions, recommendation to be out of work for a week, if possible, work restrictions and that she cannot lift more than 20 lb for medical reasons for month after surgery were also discussed. Diet recommendations reviewed and her questions seemed to be answered satisfactorily. She seemed understand her options and would like to proceed. Patient will void her urinary bladder rehabilitation consultant, have SCDs and receive Ancef, 2 g. IV on-call. She will discuss her activity restrictions with her employer and make arrangements regarding transportation. If she has another episode, she will reach out and contact me or report to the nearest emergency room. Coding Level of Care Code Est Pt Level 4 (47567) Diagnoses Cholelithiasis K80.20 S/P laparoscopic sleeve gastrectomy Z98.84 Liver fibrosis K74.00 GERD (gastroesophageal reflux disease) K21.9 Constipation K59.00
[2023-08-17 10:21] VITALS: BP 111/59; PULSE 71; TEMP 36.2; O2SAT 100; BMI 30.5
== END 2023-08-17 10:58 | disposition home or self-care (01) ==
PROVIDERS: PCP Physician Assistant Surgical; Visit Provider Surgery
DX: K80.20 Calculus of gallbladder without cholecystitis without obstruction (principal); Z98.84 Bariatric surgery status; K74.00 Hepatic fibrosis, unspecified; K21.9 Gastro-esophageal reflux disease without esophagitis; K59.00 Constipation, unspecified
CPT/HCPCS: 99214

== ENCOUNTER → 2023-08-17 10:16 | Outpatient (BNVA) | payer OTHER, SELFPAY | PROVIDERS: PCP Physician Assistant Surgical; Visit Provider Surgery | DX: K80.20 Calculus of gallbladder without cholecystitis without obstruction (principal); K74.00 Hepatic fibrosis, unspecified; K59.00 Constipation, unspecified; K21.9 Gastro-esophageal reflux disease without esophagitis; Z98.84 Bariatric surgery status | CPT/HCPCS: 99212 ==

== ENCOUNTER 2023-09-03 12:04 | Emergency (ER) | payer OTHER, SELFPAY ==
--- NOTE | ~2023-09-03 | US_ITS ---
EXAMINATION: US ABDOMEN LIMITED CLINICAL INFORMATION: Cc the right upper quadrant pain.. COMPARISON: None available. TECHNIQUE: Real-time imaging of the right upper quadrant abdominal viscera. FINDINGS: PANCREAS: Normal. The pancreatic duct measures 0.8 cm at the head. GALLBLADDER: There are scattered echogenic dependent stones with mild gallbladder wall thickening measuring 0.3 to 1.5 cm closer to the neck. There is thickening not as gallbladder wall. No tenderness was noted following compression with the probe. Patient did receive pain medications. COMMON BILE DUCT: Normal in caliber measuring 0.8 cm in diameter. FREE FLUID: None. US/US abdomen limited IMPRESSION: Gallstones with wall thickening suspicious for cholecystitis. However no acute pain could be elicited by ultrasound probe. Patient did receive pain medications. Unremarkable pancreas. CBD is slightly prominent measuring 0.8 cm.
--- NOTE | 2023-09-03 12:40 | ED.ABDPAIN ---
HPI - Abdominal Pain General Chief Complaint: Abdominal Pain Stated Complaint: Abd pain - gallbladder (?) Time Seen by Provider: 09/03/23 13:14 Source: patient, family and old records reviewed Mode of arrival: ambulatory Limitations: no limitations History of Present Illness HPI narrative: 33 yo female with PMH of GERD, liver fibrosis, s/p lap gastric sleeve, back pain, dx with gallstones in our ED on 08/15 plan [address] surgery [address] Dr. Graham on this . She has had intermittent RUQ pain since then. Last night developed worsening RUQ pain with n/v. No diarrhea. Had BM today. Has been sticking to a low fat diet. 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 No fevers. MD elicited complaint: abdominal pain Pertinent past history: other (gallstones) Onset (ago): day(s) (last night) Pain Consistency: constant Location: RUQ Severity: severe Quality: stabbing Radiation: none Migration to: no migration Exacerbating factors: eating Relieving factors: nothing Context: history of similar episodes Associated symptoms: nausea and vomiting Related Data Previous Rx's Medication Instructions Recorded pantoprazole 40 mg tablet,delayed 40 mg PO DAILY 90 days #90 tabs 03/02/23 release oxycodone 5 mg capsule 5 mg PO Q8H PRN pain #12 caps 08/15/23 morphine 15 mg immediate release 15 mg PO Q6H PRN pain #12 tabs 09/03/23 tablet ondansetron 4 mg disintegrating 4 mg PO Q8H PRN nausea and 09/03/23 tablet vomiting #20 tabs Allergies Allergy/AdvReac Type Severity Reaction Status Date / Time No Known Allergies Allergy Verified 08/17/23 10:22 Review of Systems Review of Systems Constitutional : No Weight loss, No Fever, No Chills ENT/Mouth : No sore throat, No Rhinorrhea Eyes: No Swelling, No Redness Cardiovascular : No Chest Pain, No SOB, NoEdema Respiratory : No Cough, No Sputum, No Wheezing Gastrointestinal : Positive Nausea, Positive Vomiting, positive Diarrhea, positive abdominal Pain, No Hematochezia, No Melena Genitourinary : No Dysuria, No Urinary Frequency, No Hematuria, No Urgency Musculoskeletal : No joint pain, No Myalgias, No Joint Swelling Skin : No Skin Lesions, No rash Neuro : No Weakness, No Numbness, No Dizziness, No Headache Psych : No Anxiety/Panic, No Depression Heme/Lymph: No Bruising, No Lymphadenopathy Endocrine : No Polyuria, No Polydipsia All other systems reviewed and are negative. PENDING SALE TO [facility] Past Medical History Attestation statement: The following information was validated with the patient. Source: old records reviewed Medical History Cholelithiasis GERD (gastroesophageal reflux disease) Postoperative nausea Renal calculi BMI 39.0-39.9,adult Back pain Morbid obesity Irritable bowel syndrome with both constipation and diarrhea Rectal bleeding Surgical History Hx of laparoscopic partial gastrectomy Hx of unilateral salpingectomy Hx of unilateral salpingectomy History of surgery Family History Family History (Reviewed 08/17/23 @ 10:51 by Maximilian Graham MD, [facility], [facility]) Mother No problems noted. Father No problems noted. Brother Kidney disease Son No problems noted. Son No problems noted. Son No problems noted. Social History Household Members: Family Household Members Other:: minor children Housing: House Are you a primary dog day care attendant to a significant other at home: Yes (minor children) Do you presently have visiting nurse or other home services: No Alcohol intake: never Patient Tobacco Use Status: Never used Tobacco Smoked in Last 30 Days: No Use of substances other than those prescribed or required for medical reasons: No Advance Directives: No Advance Directives Information Provided: No Patient : No Physical Exam ED Vital Signs: Vital Signs - 24 hr 09/03/23 12:41 09/03/23 13:15 Temperature 97.5 F 98.6 F Pulse Rate 66 72 Respiratory Rate 18 18 Blood Pressure 111/45 L 111/48 L Pulse Oximetry 100 100 Oxygen Delivery Method Room Air Room Air BMI result Body Mass Index 29.5 Appearance: Alert. Oriented X3. No acute distress. Eyes: Pupils equal, round and reactive to light. ENT: Pharynx normal. Neck: Normal inspection. Neck supple. CVS: Normal heart rate and rhythm. Pulses normal. Respiratory: No respiratory distress. Breath sounds normal. Abdomen: Soft and RUQ ttp with + encinas's sign Skin: Skin warm and dry. Normal skin color. Normal skin turgor. Extremities: No lower extremity edema. No calf ttp Neuro: Oriented X 3. No motor deficit. No sensory deficit. Course Course Course Narrative: RME:?33 yo female w/ pmhx of cholelithiasis, liver fbirosis, GERD, adjustment disorder presents to the ED today with complaint of constant RUQ pain w/ radiation into right back since last night. Endorses nausea, vomiting x6. Denies fever, diarrhea, constipation, dysuria, hematuria. Seen here 3 wks ago, CT showing distended gallbladder and periportal edema. Sent home with oxycodone. Has been taking oxycodone without relief. PE: Tender to palpation of right upper quadrant. No rebound tenderness or guarding. Plan, labs, UA, ct Full HPI, ROS and PE to be performed by the primary ED provider. Reevaluation(s) Reevaluation #1: pain resolved with IV morphine Medical Decision Making Medical Decision Making [facility] Narrative: 33 yo female with PMH of GERD, liver fibrosis, s/p lap gastric sleeve, back pain, dx with gallstones in our ED on 08/15 plan for surgery with Dr. Graham on this now with intractable n/v since last night and RUQ pain. She has had BM this AM. Feels the same as visit on 08/15. At this time labs, IV nausea medications and IV morphine for pain. US for gallbladder pathology ordered. BM today and no lower abdominal pain localized to RUQ seems most consistent with biliary colic and not SBO Differential Diagnosis Differential Diagnoses: The differential diagnosis associated with the presentation includes cholelithiasis, cholecystitis Admission/Observation Consideration of admission/observation: Escalation of care including admission/observation considered bariatrics aware - DC home they will call Tuesday send home with pain medications and zofran, OR Tuesday or Tuesday they will be in touch with patient. Consult Healthcare Provider Management of the patient was discussed with: Cytotechnologist/Cytology Supervisor message sent to Marina Javier from bariatric surgery Lab Data [facility] Lab Attestation statement: I reviewed the patient's lab results. 09/03/23 12:55 09/03/23 12:55 Labs: Lab Results 09/03/23 09/03/23 09/03/23 Range/Units 12:55 13:17 13:30 WBC 8.3 (4.8-10.8) X10*3/uL RBC 4.50 (4.20-5.50) X10*6/uL Hgb 13.9 (12.0-16.0) g/dl Hct 40.4 (37.0-47.0) % MCV 89.8 (80.0-98.0) fL MCH 30.9 (27.0-33.0) pg MCHC 34.4 (31.0-35.0) g/dl RDW 11.6 (11.0-16.0) % Plt Count 263 D (160-400) X10*3/uL MPV 10.6 (9.4-12.3) fL Immature Gran % (Auto) 0.2 (0.0-0.4) % Neut % (Auto) 78.1 H (45-73) % Lymph % (Auto) 14.7 L (20-40) % [place] % (Auto) 6.3 (2-11) % Eos % (Auto) 0.6 (0-4) % Baso % (Auto) 0.1 (0-2) % Lymph # (Auto) 1.2 (1.2-4.9) X10*3/uL [place] # (Auto) 0.5 (0.1-1.2) X10*3/uL Eos # (Auto) 0.1 (0.0-0.4) X10*3/uL Baso # (Auto) 0.0 (0.0-0.2) X10*3/uL Abs Immat Gran (auto) 0.02 (0.00-0.03) X10*3/uL Absolute Neuts (auto) 6.5 (2.0-8.3) x10*3/uL Absolute Nucleated RBC 0.000 (0.0-0.012) X10*3/uL Nucleated RBC % (auto) 0.0 (0.0-0.2) /100WBC Sodium 140 (135-145) mmol/L Potassium 3.9 (3.3-5.1) mmol/L Chloride 109 H (96-108) mmol/L Carbon Dioxide 25 (22-29) mmol/L Anion Gap 10 L (12-20) BUN 11 (9-16) mg/dL Creatinine 0.86 (0.5-1.4) mg/dL Estim Creat Clear Calc 94.8 Estimated GFR > 60 Random Glucose 95 (60-115) mg/dL Calcium 9.6 (8.4-10.2) mg/dL Magnesium 2.0 (1.6-2.6) mg/dL Total Bilirubin 1.0 (0.0-1.0) mg/dL AST 38 H (5-31) U/L ALT 30 (0-31) U/L Alkaline Phosphatase 79 (39-117) U/L Total Protein 8.3 H (6.5-8.0) g/dL Albumin 4.2 (3.5-5.0) g/dL Lipase 25 (8-78) U/L Urine Color Dark Yellow Urine Appearance Clear Urine pH 5.5 (5.0-9.0) Ur Specific [place] >= 1.030 H (1.005-1.025) Urine Protein Negative (Neg-Trace) mg/dL Urine Glucose (UA) Negative (Negative) mg/dL Urine Ketones Trace (Negative) mg/dL Urine Blood Small (1+) H (Negative) Urine Nitrite Negative (Negative) Ur Leukocyte Esterase Negative (Negative) Urine RBC 0-2 (0-2) /HPF Urine WBC 0-5 (0-5) /HPF Ur Squamous Epith Cells 0-2 (0-2) /HPF Urine Bacteria None Seen (None Seen) Hyaline Casts 0-2 (0-2) /LPF Urine Test NEGATIVE (NEGATIVE) Independent Interpretation I performed an independent interpretation of an: Ultrasound (GB wall thickening and stones) Radiology Impression Discussion of test interpretation with radiology: I have reviewed the radiologist's reading. Independent Historian Clinical information obtained from an independent historian. History obtained from or confirmed by: Spouse External Record Review External record reviewed: Inpatient record Prescription Management I considered prescription management with: Pain Medication and Other Medications Administered Discontinued Medications Generic Name Dose Route Start Last Admin Trade Name Freq PRN Reason Stop Dose Admin Diphenhydramine HCl 25 mg 09/03/23 13:15 09/03/23 13:32 Diphenhydramine Hcl 50 Mg/Ml Vial IVPUSH 09/03/23 13:16 25 mg ONCE ONE Administration Sodium Chloride 1,000 mls @ 999 mls/hr 09/03/23 13:15 09/03/23 13:32 Ns IV 09/03/23 14:15 999 mls/hr .Q1H1M DODIE Administration Metoclopramide HCl 10 mg 09/03/23 13:15 09/03/23 13:33 Metoclopramide Hcl 10 Mg/2 Ml Vial IVPUSH 09/03/23 13:16 10 mg ONCE ONE Administration Morphine Sulfate 4 mg 09/03/23 13:26 09/03/23 13:38 Morphine Sulfate 4 Mg/Ml Cartridge IVPUSH 09/03/23 13:27 4 mg ONCE ONE Administration Protocol Critical Care Time Critical Care Time Critical Care Time: Yes Total Critical Care Time: 35 Attestation: pain improved with IV morphine, medical consult I attest to this time spent taking care of the patient Discharge Plan Discharge Clinical Impression: Biliary colic Patient Disposition: Home, Self-Care Instructions: Biliary Colic (ED) Additional Instructions: per Dr. Avalos clear liquids and protein shakes only no other food. plan for surgery sooner Tuesday or Tuesday they will be in touch. return for worsening pain, fevers, vomiting, or any other concerns. Prescriptions: New morphine 15 mg tablet 15 mg PO Q6H PRN (Reason: pain) Qty: 12 0RF Rx Instructions: partial fill okay; Partial Fill upon patient request. ondansetron 4 mg tablet,disintegrating 4 mg PO Q8H PRN (Reason: nausea and vomiting) Qty: 20 0RF No Action pantoprazole 40 mg tablet,delayed release (DR/EC) 40 mg PO DAILY 90 Days Qty: 90 1RF oxycodone 5 mg capsule 5 mg PO Q8H PRN (Reason: pain) Qty: 12 0RF Rx Instructions: Partial Fill upon patient request. Stand Alone Forms: Work/School Release
[2023-09-03 12:41] VITALS: BP 111/45; PULSE 66; RESP 18; TEMP 36.4; O2SAT 100; BMI 29.5
[2023-09-03 13:00] LABS: MANUAL DIFF FLAG NO
[2023-09-03 13:01] LABS: Basophils Percent Auto 0.1 % (0-2); Eosinophils Absolute Auto 0.1 X10*3/uL (0.0-0.4); Eosinophils Percent Auto 0.6 % (0-4); Hematocrit 40.4 % (37.0-47.0); Hemoglobin 13.9 g/dl (12.0-16.0); Imm Gran Abs Auto 0.02 X10*3/uL (0.00-0.03); Imm Gran Pct Auto 0.2 % (0.0-0.4); Lymphocytes Absolute Auto 1.2 X10*3/uL (1.2-4.9); Lymphocytes Percent Auto 14.7 % (20-40); Mean Corpuscular HGB Conc 34.4 g/dl (31.0-35.0); Mean Corpuscular Hemoglobin 30.9 pg (27.0-33.0); Mean Corpuscular Volume 89.8 fL (80.0-98.0); Mean Platelet Volume 10.6 fL (9.4-12.3); Monocytes Absolute Auto 0.5 X10*3/uL (0.1-1.2); Monocytes Percent Auto 6.3 % (2-11); Neutrophils Absolute Auto 6.5 x10*3/uL (2.0-8.3); Neutrophils Percent Auto 78.1 % (45-73); Platelet Count 263 X10*3/uL (160-400); Red Cell Distribution Width 11.6 % (11.0-16.0); White Blood Count 8.3 X10*3/uL (4.8-10.8)
[2023-09-03 13:15] VITALS: BP 111/48; PULSE 72; RESP 18; TEMP 37; O2SAT 100
[2023-09-03] MEDS: 0.9 % Sodium Chloride 1,000 ML 999 ML IV (13:32)
[2023-09-03] MEDS: diphenhydrAMINE HCL 50 MG/ML VIAL 25 MG IVPUSH (13:32)
[2023-09-03] MEDS: Metoclopramide HCl 10 MG/2 ML VIAL IVPUSH (13:33)
[2023-09-03 13:36] LABS: Appearance Urine Clear; Color Urine Dark Yellow; Glucose Urine UA Negative (Negative); Leukocyte Esterase Urine Negative (Negative); Nitrite Urine Negative (Negative); PH 5.5 (5.0-9.0); Specific Gravity - Urine >= 1.030 (1.005-1.025); UMIC TRIGGER UACC YES; Urine Blood Small (1+) (Negative); Urine Ketones Trace mg/dL (Negative); Urine Protein Negative (Neg-Trace)
[2023-09-03] MEDS: Morphine Sulfate 4 MG/ML CARTRIDGE IVPUSH (13:38)
[2023-09-03 13:43] LABS: Alanine Aminotransferase 30 U/L (0-31); Albumin Level 4.2 g/dL (3.5-5.0); Alkaline Phosphatase 79 U/L (39-117); Anion Gap 10 (12-20); Aspartate Amino Transferase 38 U/L (5-31); Blood Urea Nitrogen 11 mg/dL (9-16); Calcium 9.6 mg/dL (8.4-10.2); Carbon Dioxide 25 mmol/L (22-29); Chloride 109 mmol/L (96-108); Creatinine Clr Calc Pharmacy 94.8; Estimated Glomerular Filt Rate > 60; Glucose Random 95 mg/dL (60-115); Lipase 25 U/L (8-78); Potassium 3.9 mmol/L (3.3-5.1); Sodium 140 mmol/L (135-145); Total Protein 8.3 g/dL (6.5-8.0)
[2023-09-03 13:47] LABS: Bacteria Urine None Seen (None Seen); Hyaline Casts Urine 0-2 /LPF (0-2); RBC Urine 0-2 /HPF (0-2); Squamous Epithelial Cell Urine 0-2 /HPF (0-2); WBC Urine 0-5 /HPF (0-5)
[2023-09-03 14:31] LABS: UPreg QC Valid YES; Urine Pregnancy NEGATIVE (NEGATIVE)
--- NOTE | 2023-09-03 14:36 | PC.NURSE ---
pt verbalizing pain level decreased to a 1/10 post medication administration. IV fluids still administering at this time. pt awaiting to go to CT. resting in no apparent distress w/ lights dimmed. respirations remain even and unlabored. bedside. call cooper placed within reach.
--- NOTE | 2023-09-03 15:49 | PC.NURSE ---
Patient receiving IV fluids at this time, will finish infusion before discharging patient.
[2023-09-03 16:10] VITALS: BP 98/47; PULSE 65; RESP 20; TEMP 36.9; O2SAT 100
== END 2023-09-03 16:20 | disposition home or self-care (01) ==
PROVIDERS: Physician Assistant Medical; Emergency Provider Emergency Medicine; PCP Internal Medicine
DX: K80.70 Calculus of gallbladder and bile duct without cholecystitis without obstruction (principal); R11.2 Nausea with vomiting, unspecified; K74.00 Hepatic fibrosis, unspecified; Z98.84 Bariatric surgery status; Z90.49 Acquired absence of other specified parts of digestive tract; Z90.721 Acquired absence of ovaries, unilateral
CPT/HCPCS: 36415; 76705; 80053; 81001; 81025; 83690; 83735; 85025; 96361; 96374; 96375; 99284; J1200; J2270; J2765

== ENCOUNTER 2023-09-05 08:46 | Day surgery (SDC) | payer OTHER, SELFPAY ==
[2023-09-05] VITALS (13 sets, daily range): BP systolic 96–109; BP diastolic 47–68; PULSE 64–94; RESP 12–17; TEMP 36.2–36.9; O2SAT 96–100; BMI 30.6
--- NOTE | 2023-09-05 07:31 | MHC.SHP ---
Pre-Procedural Eval Section A Date of Service: 09/05/23 The patient is an INPATIENT: No The History & Physical has been completed within 30 days and I have reviewed it.: Yes Section B Chief Complaint: Calculus of gallbladder without cholecystitis with Allergies: Allergies Allergy/AdvReac Type Severity Reaction Status Date / Time No Known Allergies Allergy Verified 08/17/23 10:22 Plan I have reviewed the history and physical and performed a pertinent physical examination on my patient. No changes have occurred unless specified. Time Spent With Patient Time: Total time managing care of this patient today ____ minutes.
--- NOTE | 2023-09-05 07:31 | W.PM.OPN ---
Operative Note Operative Note Date of Service: 09/05/23 Narrative: Preop diagnosis: [Biliary colic] Postop diagnosis: [Same, suspect chronic and acute calculous cholecystitis] Procedure: [Laparoscopic cholecystectomy] Surgeon: Maximilian Graham MD, FACS, [facility] Assist: [Inocencio Coronel PA-C] Anesthesia: [GET, Marcaine, 0.5% plain] Estimated blood loss: [20cc] Specimen: [Gallbladder with contents] Intraoperative findings: [Adhesions from the omentum to the gallbladder requiring 10 minute lysis of adhesions; cystic artery was 3 mm and displaced to the patient's right lateral cystic triangle due to edema or aberrant anatomy. Critical view of safety demonstrated. Short, cystic duct measuring approximately 7-8 mm noted.] Indications: [The patient is a 33-year-old woman who is status post laparoscopic sleeve gastrectomy for obesity February 15, 2023. She is seen by way of the emergency department due to an episode of biliary colic that occurred on 08/15/2023 after eating a burger couple weeks ago; she experience another episode on September 03 which was documented in the ER visit notes. Labs remained unchanged within normal white count slight elevation to AST. Repeat ultrasound confirmed cholelithiasis and an 8 mm CBD. She was scheduled for elective laparoscopic cholecystectomy, possible open, possible cholangiogram later this week, however, the patient is experiencing more frequent symptoms so moving her operative date was discussed with the patient. Since her ongoing worsening symptoms mandate earlier operative intervention in an attempt to avoid more significant complications, she seemed to understand the need to change the plan. I reviewed the option of 2nd opinion which was declined. I also reviewed the inherent risks to surgery which include, but are not limited to: Bleeding that could require another operation or blood transfusion, the need for open surgery, the unlikely but possible issue of bile leak that could require an ERCP, the risk of retained common duct stones that could require an ERCP, the risk of common bile duct injury which would require transfer to a larger institution for another operation. Patient seemed to understand her options, declined interpretive services or 2nd opinion and wants to proceed today.] Procedure: [The patient was identified in preoperative holding and again in the operating room and placed supine on the table. An appropriate time-out was performed and preemptive local used at all trocar insertion sites. I began at the patient's supraumbilical midline and placed a Veress needle through a transverse supraumbilical incision. An appropriate drop test was performed. The needle was connected to high flow and opening pressures were 6 mmHg. However, the insufflator registered 15 mmHg in spite of the patient's abdomen being flat and no clinical evidence of pneumoperitoneum, so a stab incision was made in the left subcostal area, the Veress needle again inserted, an appropriate drop test performed and a pneumoperitoneum of 15 mmHg was then obtained using carbon dioxide. The Veress needle was left in place in the left upper quadrant and I accessed the patient's abdomen through the supraumbilical midline incision using a 5 mm Optiview trocar and 30 degree/5 mm laparoscopic without incident. Next a a 5 mm epigastric and two 5 mm right subcostal ports were placed with preemptive analgesia under direct laparoscopic vision without incident and the supraumbilical trocar upsized to a 12 mm trocar under direct laparoscopic vision. There is no evidence of injury from the Veress needle and either location above the umbilicus her left upper quadrant and it was unclear why pneumoperitoneum could not be obtained at the umbilicus. The gallbladder could not be seen due to adhesions from the omentum on the fundus which required approximately 10 minutes of lysis of adhesions, at which point the fundus of the gallbladder was clearly identified and grasped by its fundus. It was retracted cranially and anteriorly and dissection began in the lateral cystic triangle. The cystic duct was identified at its junction on the gallbladder and dissection carried medially, then circumferentially using the [place] dissector and hook. The cystic artery was then carefully identified and circumferentially dissected and noted to be in the right lateral aspect from the cystic duct. Dissection using hook and cautery was performed to demonstrate the critical view of safety and given the size of the short cystic duct, I elected to upsize the epigastric 5 mm port to 12 mm to accommodate a 10 mm clip director professional services. The duct and artery were double clipped proximally and once distally and sharply divided. Electrocautery was used to remove the gallbladder from its fossa on the liver. Liver bed was inspected for hemostasis and the clips were noted to be on the respective structures. The gallbladder was placed in an Endo-Catch bag and delivered through the umbilicus under direct laparoscopic vision. The abdomen was again inspected with the laparoscoped and a abdomen deflated to assess for hemostasis. The patient was returned to neutral position, the abdomen deflated and the fascia of the supraumbilical incision closed with interrupted Vicryl sutures. Skin was closed with 4-0 Monocryl subcuticular sutures. Mastisol and Steri-Strips were applied followed by Band-Aids. The patient tolerated the procedure well and was extubated recovered in stable condition. All sponge instrument counts were correct. At the patient's request I called her Brian at [phone] to apprise him of the operation and post-op plan, activity restrictions, pain management & bowel regime. His questions seemed to be satisfactorily answered.]
[2023-09-05] MEDS: Lactated Ringers 1,000 ML 100 ML IVCONT (09:34)
--- NOTE | 2023-09-05 09:47 | HO.ANESPROP2 ---
HPI - Anesthesia Eval Consult details Narrative: Acute Cholecystitis PMFSH Active Problems Active Problems: All Active Problems (Updated 09/05/23 @ 09:03 by Catherine Carlin RN) Liver fibrosis (Acute) S/P laparoscopic sleeve gastrectomy (Acute) Obesity (Acute) Adjustment disorder, unspecified (Acute) Vitamin D deficiency (Acute) Constipation (Acute) Cholelithiasis (Acute) GERD (gastroesophageal reflux disease) (Acute) Back pain (Acute) Morbid obesity (Acute) Past Medical History Medical History Liver fibrosis Cholelithiasis GERD (gastroesophageal reflux disease) Postoperative nausea Renal calculi BMI 39.0-39.9,adult Back pain Morbid obesity Irritable bowel syndrome with both constipation and diarrhea Rectal bleeding Family History Family History Mother No problems noted. Father No problems noted. Brother Kidney disease Son No problems noted. Son No problems noted. Son No problems noted. Family history of problems with anesthesia: No Surgical History Surgical History Hx of laparoscopic partial gastrectomy Hx of unilateral salpingectomy Hx of unilateral salpingectomy History of surgery History of Problems with Anesthesia: No Social History Household Members: Family Household Members Other:: minor children Housing: House Are you a primary manager progressive care to a significant other at home: Yes (minor children) Do you presently have visiting nurse or other home services: No Alcohol intake: never Patient Tobacco Use Status: Never used Tobacco Use of substances other than those prescribed or required for medical reasons: No Are you DNR?: No Advance Directives: No Advance Directives Information Provided: Yes Meds Allergies Allergy/AdvReac Type Severity Reaction Status Date / Time No Known Allergies Allergy Verified 09/05/23 09:03 Active Medications: Current Medications Lactated Ringer's (Lr) 1,000 mls @ 100 mls/hr IVCONT .Q10H DODIE Last Admin: 09/05/23 09:34 Dose: 100 mls/hr Exam Height,Weight and Vital Signs: Height 5 ft 4 in Weight 80.921 kg Last Vital Signs Temp 98.4 F 09/05/23 09:27 Pulse 67 09/05/23 09:27 Resp 15 09/05/23 09:27 BP 104/57 L 09/05/23 09:27 Pulse Ox 97 09/05/23 09:27 O2 Del Method Room Air 09/05/23 09:27 Airway Mallampati Class: III TM Dist: >3cm Neck ROM: Full Loose/Missing/Broken Teeth: No Heart: [id number] Lungs: cta b/l Assessment and Plan Assessment Anesthesia Assessment: Anesthesia Plan Discussed and Chart Reviewed Final Anesthetic Review Family History of Problems with Anesthesia: No History of Problems with Anesthesia: No NPO: Yes ASA Class: II Final Preanesthetic Review: No Changes in Pt Med Stat, Meds/Allgs Chart Reviewed, Consent Obtained/Reviewed and Anes Risks/Benef Reviewed Patient Risk: Intermediate Procedure Risk: Intermediate Assessment/Block/Sedation in SS: Assess/Block/Sedation-SS Anesthetic Plan Anesthetic Plan: GA Disposition: Standard PACU
[2023-09-05] MEDS: HYDROmorphone HCl 0.5 MG/0.5 ML SYRINGE IVPUSH ×2 (12:51→13:01)
[2023-09-05] MEDS: oxyCODONE HCl Immed Release 5 MG TABLET PO (14:52)
== END 2023-09-05 15:55 | disposition home or self-care (01) ==
LOC: HO.SSS 08:46
PROVIDERS: PCP Physician Assistant Surgical; Visit Provider Surgery
PROC: 0FT44ZZ Resection of Gallbladder, Percutaneous Endoscopic Approach (ICD-10-PCS; CPT 47562; principal; 2023-09-05 10:00)
DX: K80.10 Calculus of gallbladder with chronic cholecystitis without obstruction (principal); K82.8 Other specified diseases of gallbladder; K21.9 Gastro-esophageal reflux disease without esophagitis; K58.2 Mixed irritable bowel syndrome; K74.00 Hepatic fibrosis, unspecified; Z98.84 Bariatric surgery status; Z90.3 Acquired absence of stomach [part of]; Z98.890 Other specified postprocedural states
CPT/HCPCS: 47562; 88304; J0665; J0690; J1100; J1170; J2405; J2550; J3010

== ENCOUNTER → 2023-09-05 08:46 | Outpatient (BNV) | payer OTHER, SELFPAY | PROVIDERS: PCP Physician Assistant Surgical; Visit Provider Surgery | DX: K80.20 Calculus of gallbladder without cholecystitis without obstruction (principal) | CPT/HCPCS: 47562 ==

== ENCOUNTER 2023-09-06 10:06 | Outpatient (REF) | payer OTHER, SELFPAY ==
[2023-09-06 10:57] LABS: MANUAL DIFF FLAG NO
[2023-09-06 11:34] LABS: Basophils Percent Auto 0.1 % (0-2); Eosinophils Percent Auto 0.1 % (0-4); Hematocrit 38.3 % (37.0-47.0); Hemoglobin 13.3 g/dl (12.0-16.0); Imm Gran Abs Auto 0.06 X10*3/uL (0.00-0.03); Imm Gran Pct Auto 0.5 % (0.0-0.4); Lymphocytes Absolute Auto 1.2 X10*3/uL (1.2-4.9); Lymphocytes Percent Auto 10.6 % (20-40); Mean Corpuscular HGB Conc 34.7 g/dl (31.0-35.0); Mean Corpuscular Hemoglobin 31.4 pg (27.0-33.0); Mean Corpuscular Volume 90.3 fL (80.0-98.0); Mean Platelet Volume 11.7 fL (9.4-12.3); Monocytes Percent Auto 8.6 % (2-11); Neutrophils Absolute Auto 8.9 x10*3/uL (2.0-8.3); Neutrophils Percent Auto 80.1 % (45-73); Platelet Count 228 X10*3/uL (160-400); Red Blood Count 4.24 X10*6/uL (4.20-5.50); Red Cell Distribution Width 11.5 % (11.0-16.0); White Blood Count 11.1 X10*3/uL (4.8-10.8)
[2023-09-06 11:42] LABS: Alanine Aminotransferase 416 U/L (0-31); Albumin Level 3.8 g/dL (3.5-5.0); Alkaline Phosphatase 143 U/L (39-117); Anion Gap 11 (12-20); Aspartate Amino Transferase 430 U/L (5-31); Bilirubin Total 3.3 mg/dL (0.0-1.0); Blood Urea Nitrogen 8 mg/dL (9-16); Calcium 9.1 mg/dL (8.4-10.2); Carbon Dioxide 27 mmol/L (22-29); Chloride 106 mmol/L (96-108); Estimated Glomerular Filt Rate > 60; Glucose Random 104 mg/dL (60-115); Potassium 3.5 mmol/L (3.3-5.1); Sodium 140 mmol/L (135-145); Total Protein 7.4 g/dL (6.5-8.0)
[2023-09-06 11:57] LABS: Amylase 33 U/L (28-100)
== END 2023-09-06 10:07 | disposition home or self-care (01) ==
LOC: HO.LAB 10:06
PROVIDERS: PCP Physician Assistant Surgical; Visit Provider Surgery
DX: K74.00 Hepatic fibrosis, unspecified (principal); E66.9 Obesity, unspecified; Z48.815 Encounter for surgical aftercare following surgery on the digestive system; Z98.84 Bariatric surgery status; Z90.49 Acquired absence of other specified parts of digestive tract
CPT/HCPCS: 36415; 80053; 82150; 85025

== ENCOUNTER 2023-09-06 10:06 | Outpatient (AMB) | payer OTHER, SELFPAY ==
--- NOTE | 2023-09-06 11:04 | MHC.OFFVIS ---
Intake Vital Signs 09/06/23 11:09 BP 122/67 Blood Pressure Location Rt brachial Position Sitting Pulse 66 Pulse Source Pulse Oximeter Temp 96.8 F Temp Source Tympanic Pulse Oximetry (%) 99 Oxygen Delivery Method Room Air Intake Visit Reasons: Calculus of gallbladder without cholecystitis Diesel Fitter Mechanic Required: No Ese Teacher: Ese Teacher offered & declined Allergies No Known Allergies Allergy (Verified 09/06/23 11:10) HPI HPI Comments History of Present Illness Details The patient underwent laparoscopic cholecystectomy on 09/05/2023. The procedure was uneventful and the patient was discharged home. She contacted the office in tears requesting to be seen due to abdominal pain. The patient is accompanied by her Brian and mother and notes that she has severe pain is when she was in the emergency department. She notes that neither morphine, nor oxycodone is helping her pain and she is having issues with nausea. She is holding an emesis bag. Patient is having no acute respiratory distress. [facility] Medical History Liver fibrosis Cholelithiasis GERD (gastroesophageal reflux disease) Postoperative nausea Renal calculi BMI 39.0-39.9,adult Back pain Morbid obesity Irritable bowel syndrome with both constipation and diarrhea Rectal bleeding Surgical History Hx laparoscopic cholecystectomy Hx of laparoscopic partial gastrectomy Hx of unilateral salpingectomy Hx of unilateral salpingectomy History of surgery Family History Mother No problems noted. Father No problems noted. Brother Kidney disease Son No problems noted. Son No problems noted. Son No problems noted. Household Members: Family Household Members Other:: minor children Housing: House Are you a primary child care leader to a significant other at home: Yes (minor children) Do you presently have visiting nurse or other home services: No Alcohol intake: never Patient Tobacco Use Status: Never used Tobacco Review of Systems Const All systems reviewed & are unremarkable except as noted in HPI and below Physical Exam On exam, the patient is not toxic but she appears uncomfortable in his rocking She is anicteric She is in no acute respiratory distress Her abdomen is obese and soft. She notes pain in her back and in her upper abdomen but there is no peritoneal sign in the office Results Reviewed Results Reviewed: labs wbc 11.1, Hb 13.3, Plts 228K TBili elevated at 3.3, AST 430, ALT 416, Alk Phos 143 Lytes WNL, BUN 8 Cr 0.82 Amylase Nml Assessment & Plan Assessment & Plan (1) S/P laparoscopic cholecystectomy: Code(s): Z90.49 - Acquired absence of other specified parts of digestive tract (2) Liver fibrosis: Code(s): K74.00 - Hepatic fibrosis, unspecified (3) S/P laparoscopic sleeve gastrectomy: Code(s): Z98.84 - Bariatric surgery status (4) Obesity: Code(s): E66.9 - Obesity, unspecified (5) Cholelithiasis: Code(s): K80.20 - Calculus of gallbladder without cholecystitis without obstruction Plan Labs are currently pending, however the patient notes that her pain is severe and unrelenting into her back suggestive of pancreatitis or choledocholithiasis. Patient was transported by staff in a wheelchair to the emergency department for additional workup. Case was discussed with the ER team and the patient will have an IV placed, receive a CT with IV contrast and likely need MRCP given concern for choledocholithiasis, bile duct injury, or bile leak. Coding Level of Care Code Global (39177) Diagnoses S/P laparoscopic cholecystectomy Z90.49 Liver fibrosis K74.00 S/P laparoscopic sleeve gastrectomy Z98.84 Obesity E66.9 Cholelithiasis K80.20
[2023-09-06 11:09] VITALS: BP 122/67; PULSE 66; TEMP 36; O2SAT 99
== END 2023-09-06 12:01 | disposition home or self-care (01) ==
LOC: HO.HGS 10:06
PROVIDERS: PCP Physician Assistant Surgical; Visit Provider Surgery
DX: Z90.49 Acquired absence of other specified parts of digestive tract (principal); K74.00 Hepatic fibrosis, unspecified; Z98.84 Bariatric surgery status; E66.9 Obesity, unspecified; K80.20 Calculus of gallbladder without cholecystitis without obstruction
CPT/HCPCS: 99024

== ENCOUNTER 2023-09-06 11:21 | Inpatient (IN) | payer OTHER, SELFPAY ==
--- NOTE | ~2023-09-06 | NM_ITS ---
EXAMINATION: BILIARY TRACT IMAGING STUDY CLINICAL INDICATION: A 33-year-old female presented with right upper quadrant abdominal pain. Status post recent cholecystectomy. Suspected bile leak. COMPARISON: CT of the abdomen and pelvis done on 09/06/2023, MRCP done on 09/06/2023. CT of the abdomen and pelvis done on 08/15/2023 and right upper quadrant abdominal ultrasound done on 09/03/2023. TECHNIQUE: Scintillation camera images were obtained over the abdomen for an observation of 60 minutes following the intravenous administration of 5 millicuries technetium 99m mebrofenin. Subsequently, 4 hours delayed images were also obtained. FINDINGS: There is good concentration of activity in the liver by 5 minutes post injection. Biliary activity is well visualized by 20 minutes, and there is good visualization of small bowel activity by 25 minutes. The gallbladder is surgically absent. No evidence of any extraluminal focal tracer collection within the gallbladder bed or perihepatic tracer avidity to suspect biliary leak. NM/NM hepatobiliary wo pharm IMPRESSION: 1. No scintigraphic evidence of biliary leak. 2. The common bile duct is patent. 3. Liver function appears normal.
--- NOTE | ~2023-09-06 | MR_ITS ---
EXAMINATION: MR ABDOMEN WITHOUT CONTRAST CLINICAL INFORMATION: Elevated liver function tests. Postoperative from laparoscopic cholecystectomy. COMPARISON: Abdomen CT from 08/15/2023 and 09/06/2023. Abdomen ultrasound from 09/03/2023. TECHNIQUE: MR imaging of the abdomen is performed using standard sequences on a high-field magnet without use of intravenous contrast. The examination includes use of heavily T2-weighted MRCP sequences. FINDINGS: LUNG BASES: Trace pleural effusions (right more conspicuous than left) and mild basilar atelectasis. LIVER: Liver has normal size and contour. Periportal edema is noted. No evidence of liver mass or abscess. There is no significant change in the liver parenchymal signal on [id number] compared to in-phase T1-weighted gradient echo images. GALLBLADDER AND BILIARY TREE: Status post cholecystectomy. The common bile duct has normal smooth contour and measures up to 0.6 - 0.7 cm maximum diameter. No evidence of choledocholithiasis. No intrahepatic ductal dilatation. PANCREAS: Normal. No pancreatic divisum. No parenchymal edema, pancreatic ductal dilatation or mass. SPLEEN: Normal. ADRENAL GLANDS: Normal. KIDNEYS: Kidneys are normal in size and signal. No renal mass or hydronephrosis. BOWEL AND PERITONEUM: Prior gastric sleeve surgery. No dilated bowel loops. No focal bowel wall thickening or submucosal edema. Small amount of free fluid is present within the abdomen, and some of the fluid is tracking along right and left paracolic gutters. There is no focal organized collection. ABDOMINAL WALL: Mild edema is present within subcutaneous tissues of the flanks and back. VASCULATURE: Unremarkable. LYMPH NODES: No pathologic sized lymph nodes in the abdomen. SKELETAL: Unremarkable. MR/MR MRCP IMPRESSION: * No evidence of choledocholithiasis or biliary tract obstruction, status post cholecystectomy. * Findings are suggestive of mild anasarca. Trace pleural effusions are noted and small amount of free fluid is present within the abdomen. However, there is no localized/organized collection. * The periportal edema is nonspecific and could be a feature of hepatitis or mild fluid overload.
--- NOTE | ~2023-09-06 | CT_ITS ---
EXAMINATION: CT ABDOMEN AND PELVIS WITH CONTRAST CLINICAL INFORMATION: Right upper quadrant pain, status post cholecystectomy COMPARISON: None available. TECHNIQUE: Multidetector volumetric images were obtained from the superior aspect of the liver through the pubic symphysis following administration 85 mL of Omnipaque 350 intravenous contrast. Sagittal and coronal reformatted images were obtained on the technologist's workstation. Oral contrast: No This CT examination was performed using dose optimization techniques as appropriate, variously including the following: *Automated exposure control *Adjustment of mA and/or kV according to patient size (this includes techniques or standardized protocols for targeted exams where dose is matched to indication/reason for exam; i.e. extremities or head) *Use of iterative reconstruction technique DLP: 693 mGy-cm FINDINGS: LUNG BASES: There is dependent bibasilar atelectasis. Heart size is normal. LIVER, GALLBLADDER, AND BILIARY TREE: The liver is normal in size, shape, and attenuation. No focal hepatic lesion or biliary ductal dilatation is present. The small right perihepatic fluid collection and free air. The gallbladder has been surgically removed. PANCREAS: Unremarkable. SPLEEN: Unremarkable. ADRENAL GLANDS: Unremarkable. KIDNEYS AND URETERS: The kidneys are normal in size, shape, and attenuation. No hydronephrosis, hydroureter, or calculi seen. No perinephric stranding. BLADDER: Unremarkable. GASTROINTESTINAL TRACT: There is scattered stool in the right colon otherwise rest of the colon is unremarkable. The small bowel loops are unremarkable. The stomach is nondistended with sutures along the greater curvature. There is a small right perihepatic fluid collection and scattered gas throughout the abdomen from recent laparoscopic cholecystectomy ABDOMINAL WALL: A small lumbar canal hernia containing fat is noted. LYMPH NODES: No abnormal size retroperitoneal lymph nodes or mass seen. VASCULAR: Unremarkable. PELVIC VISCERA: The uterus is anteverted and appears unremarkable. There is no adnexal mass or free fluid. There is more moderate free air in the pelvis. OSSEOUS STRUCTURES: There are bilateral hip screws. No other bony abnormality seen. CT/CT abdomen pelvis w IV con IMPRESSION: Moderate free air and right perihepatic fluid collection status post laparoscopy cholecystectomy. There is no bowel obstruction Fleischner guidelines were followed.
[2023-09-06 11:40] VITALS: BP 112/85; PULSE 59; RESP 20; TEMP 36.5; O2SAT 99; BMI 29.0
--- NOTE | 2023-09-06 11:40 | ED.GENADULT ---
HPI - General Adult General Chief complaint: Abdominal Pain Stated complaint: nausea vomiting Time Seen by Provider: 09/06/23 12:08 Source: patient Mode of arrival: ambulatory Limitations: no limitations History of Present Illness HPI narrative: Patient had lap alia done yesterday, now with more pain elevated lfts and bili, sent in by Dr. Graham to see if patient has a common bile stone. Onset (ago): hour(s) Related Data Previous Rx's Medication Instructions Recorded pantoprazole 40 mg tablet,delayed 40 mg PO DAILY 90 days #90 tabs 03/02/23 release oxycodone 5 mg capsule 5 mg PO Q8H PRN pain #12 caps 08/15/23 ondansetron 4 mg disintegrating 4 mg PO Q8H PRN nausea and 09/03/23 tablet vomiting #20 tabs oxycodone 5 mg tablet 5 mg PO Q4H PRN pain #20 tabs 09/05/23 Allergies Allergy/AdvReac Type Severity Reaction Status Date / Time No Known Allergies Allergy Verified 09/06/23 11:10 Review of Systems Review of Systems: Yes all other systems are reviewed and are negative Neurologic: Denies Sensory deficit (Neuro) PMF Past Medical History Medical History Liver fibrosis Cholelithiasis GERD (gastroesophageal reflux disease) Postoperative nausea Renal calculi BMI 39.0-39.9,adult Back pain Morbid obesity Irritable bowel syndrome with both constipation and diarrhea Rectal bleeding Surgical History Hx laparoscopic cholecystectomy Hx of laparoscopic partial gastrectomy Hx of unilateral salpingectomy Hx of unilateral salpingectomy History of surgery Family History Family History Mother No problems noted. Father No problems noted. Brother Kidney disease Son No problems noted. Son No problems noted. Son No problems noted. Social History Social History Household Members: Family Household Members Other:: minor children Housing: House Are you a primary career technical education instructor to a significant other at home: Yes (minor children) Do you presently have visiting nurse or other home services: No Alcohol intake: never Comment: NOT INDICATED Patient Tobacco Use Status: Never used Tobacco Smoked in Last 30 Days: No Use of substances other than those prescribed or required for medical reasons: No Any prior treatment program specific to substance use: No Advance Directives: No Advance Directives Information Provided: Yes Physical Exam ED Vital Signs: Vital Signs - 24 hr 09/06/23 11:40 09/06/23 12:29 Temperature 97.7 F Pulse Rate 59 Respiratory Rate 20 18 Blood Pressure 112/85 Pulse Oximetry 99 98 Oxygen Delivery Method Room Air BMI result Body Mass Index 29.0 Const General: healthy appearing Nutritional Appearance: average body habitus Orientation/consciousness: oriented to person and patient oriented x3 Limitations: no limitations HENMT Head: Yes normal to inspection Ears: external ears normal General nose exam: Normal external nose present Mouth: Normal oral and palatal mucosa present and oropharynx normal Throat: Yes posterior oropharynx normal Eyes General: appearance normal, both eyes and all related structures Neck Neck: Yes normal visual inspection Chest Chest palpation & inspection: normal inspection of the chest Resp Auscultation: clear to auscultation bilaterally Cardio Jugular venous distension: no JVD Rate: regular rate Rhythm: regular rhythm Heart sounds: S1 normal heart sound present and S2 normal heart sound present GI Other: well healing wounds, tender General: Yes no CVA tenderness Back/Spine/Pelvis Back: no CVA tenderness Skin General skin exam: no rashes or lesions noted Neuro General: oriented to person and patient oriented x3 Cranial nerves: Yes CN's II-XII intact bilaterally Motor exam (neuro): 5/5 motor strength present throughout Sensory Exam: No Sensory deficit (Neuro) Extrem General: Yes normal to inspection Psych Appearance: grossly normal Course Course Course Narrative: This is an RME: Additional HPI, ROS, PE not included below will be deferred to primary provider. 33-year-old female 1 day s/p laparoscopic cholecystectomy presents today for abdominal pain. she was sent in by Dr. Graham. She reports nausea and vomiting. Spoke to Dr. Graham patient is s/p choleycystecomy yesterday he would like choledocolithiasis r/o. Ct 1st --> MRCP Reevaluation(s) Reevaluation #1: patient with likely common bile duct stone, will admit to Dr. Graham Time: 16:01 Medications Administered Discontinued Medications Generic Name Dose Route Start Last Admin Trade Name Freq PRN Reason Stop Dose Admin Sodium Chloride 500 mls @ 250 mls/hr 09/06/23 12:30 09/06/23 12:29 Ns IVCONT 09/06/23 14:29 250 mls/hr .Q2H DODIE Administration Iohexol 85 ml 09/06/23 14:13 09/06/23 14:14 Iohexol 350 Mg/Ml 100 Ml Infus..Btl IV 09/06/23 14:14 85 ml ONCE ONE Administration Morphine Sulfate 4 mg 09/06/23 12:14 09/06/23 12:28 Morphine Sulfate 4 Mg/Ml Cartridge IVPUSH 09/06/23 12:15 4 mg ONCE ONE Administration Protocol Ondansetron HCl 4 mg 09/06/23 12:14 09/06/23 12:27 Ondansetron Hcl 4 Mg/2 Ml Vial IVPUSH 09/06/23 12:15 4 mg ONCE ONE Administration Medical Decision Making Differential Diagnosis Differential Diagnoses: The differential diagnosis associated with the presentation includes (common bile duct stone, abdominal abscess, post operation complication) Admission/Observation Consideration of admission/observation: Escalation of care including admission/observation considered (upon arrival patient was considered for admission) Consult Healthcare Provider Management of the patient was discussed with: Stonemason Supervisor (Dr Graham) Lab Data MDM Lab Attestation statement: I reviewed the patient's lab results. Labs: Lab Results 09/06/23 09/06/23 Range/Units 12:22 13:10 Magnesium 1.9 (1.6-2.6) mg/dL Direct Bilirubin 2.6 H (0.0-0.5) mg/dL Lipase 107 H (8-78) U/L Urine Color Dark Yellow Urine Appearance Clear Urine pH 6.0 (5.0-9.0) Ur Specific [place] 1.010 (1.005-1.025) Urine Protein Negative (Neg-Trace) mg/dL Urine Glucose (UA) Negative (Negative) mg/dL Urine Ketones 40 (Negative) mg/dL Urine Blood Negative (Negative) Urine Nitrite Negative (Negative) Ur Leukocyte Esterase Negative (Negative) Urine Test NEGATIVE (NEGATIVE) Radiology Impression Discussion of test interpretation with radiology: I have reviewed the radiologist's reading. (and agree with abdominal Ct reading) Independent Historian Clinical information obtained from an independent historian. History obtained from or confirmed by: Spouse External Record Review External record reviewed: Inpatient record Tests considered The following testing was considered but not selected: MRI considered for MRCP but patient will get that as an inpatient Discharge Plan Discharge Clinical Impression: Biliary calculi, common bile duct Patient Disposition: Admitted As Inpatient
[2023-09-06] MEDS: ondansetron HCL 4 MG/2 ML VIAL IVPUSH ×2 (12:27→16:33)
[2023-09-06] MEDS: Morphine Sulfate 4 MG/ML CARTRIDGE IVPUSH ×2 (12:28→16:33)
[2023-09-06 12:29] VITALS: RESP 18; O2SAT 98
[2023-09-06] MEDS: 0.9 % Sodium Chloride 500 ML 250 ML IVCONT (12:29)
[2023-09-06 12:41] LABS: Lipase 107 U/L (8-78); Magnesium 1.9 mg/dL (1.6-2.6)
[2023-09-06 12:54] LABS: Bilirubin Direct 2.6 mg/dL (0.0-0.5)
--- NOTE | 2023-09-06 12:54 | PM.HPGS ---
History of Present Illness History of Present Illness Date of Service: 09/06/23 Chief complaint: nausea vomiting Narrative: Stephanie Lieberman is a 33 year old female who underwent laparoscopic cholecystectomy on 09/05/2023. The procedure was uneventful and the patient was discharged home. She contacted the office in tears requesting to be seen due to abdominal pain. The patient is accompanied by her Brian and mother and notes that she has severe pain is when she was in the emergency department. She notes that neither morphine, nor oxycodone is helping her pain and she is having issues with nausea. She is holding an emesis bag. Patient is having no acute respiratory distress. ADDENDUM 16:25 The patient is requesting food and notes that she is more comfortable at this time. I have reviewed the CT images myself and her dilated common bile duct and fluid as well as expected postop gas in this clinical setting is concerning for choledocholithiasis. I explained that an official reading is pending and there may be need to change the plan, however, at this time admitting to trend her labs and exam as well as obtain additional imaging is in order. I explained this plan to the patient and recommended that she be admitted, I have consult Dr. Galo in case ERCP is required and I have ordered an MRCP stat. Patient requested that I call her , Brian at [phone]; there was no answer and a brief message relating that she would be kept overnight to trend labs and obtain additional studies was left. Review of Systems Review of Systems: Yes all other systems are reviewed and are negative [facility] Past Medical History Medical History Liver fibrosis Cholelithiasis GERD (gastroesophageal reflux disease) Postoperative nausea Renal calculi BMI 39.0-39.9,adult Back pain Morbid obesity Irritable bowel syndrome with both constipation and diarrhea Rectal bleeding Family History Family History Mother No problems noted. Father No problems noted. Brother Kidney disease Son No problems noted. Son No problems noted. Son No problems noted. Surgical History Surgical History Hx laparoscopic cholecystectomy Hx of laparoscopic partial gastrectomy Hx of unilateral salpingectomy Hx of unilateral salpingectomy History of surgery Social History Social History Household Members: Family Household Members Other:: minor children Housing: House Are you a primary direct care staffer to a significant other at home: Yes (minor children) Do you presently have visiting nurse or other home services: No Alcohol intake: never Comment: NOT INDICATED Patient Tobacco Use Status: Never used Tobacco Smoked in Last 30 Days: No Use of substances other than those prescribed or required for medical reasons: No Any prior treatment program specific to substance use: No Advance Directives: No Advance Directives Information Provided: Yes Meds Allergies Allergy/AdvReac Type Severity Reaction Status Date / Time No Known Allergies Allergy Verified 09/06/23 11:10 Active Medications: Current Medications Sodium Chloride (Ns) 500 mls @ 250 mls/hr IVCONT .Q2H DODIE Stop: 09/06/23 14:29 Last Admin: 09/06/23 12:29 Dose: 250 mls/hr Physical Exam Vital Signs: Vital Signs: Last Vital Signs Temp 97.7 F 09/06/23 11:40 Pulse 59 09/06/23 11:40 Resp 18 09/06/23 12:29 BP 112/85 09/06/23 11:40 Pulse Ox 98 09/06/23 12:29 O2 Del Method Room Air 09/06/23 11:40 BMI result Body Mass Index 29.0 On exam, the patient is anicteric She is having no respiratory distress Her abdomen has epigastric and right upper quadrant tenderness but no peritoneal sign Dressings are intact Results Results Labs: wbc 11.1, Hb 13.3, Plts 228K TBili elevated at 3.3, AST 430, ALT 416, Alk Phos 143 Lytes WNL, BUN 8 Cr 0.[address] scan report/results: image reviewed CT scan - pelvis: image reviewed Additional studies: The common bile duct appears dilated to the Ampulla. Official reading is currently pending. Some scattered free air and subcu air to be expected postop day 1 is noted as well as fluid around the liver. Assessment and Plan (1) S/P laparoscopic cholecystectomy: Status: Acute (2) Liver fibrosis: Status: Acute (3) S/P laparoscopic sleeve gastrectomy: Status: Acute (4) Obesity: Status: Acute (5) Elevated LFTs: Status: Acute Plan Admit to [facility], okay for ice chips, IVF, antiemetics and pain meds as ordered MRCP stat ordered GI consultation for possible ERCP ordered with Dr. Galo The possibility of a bile leak that may require ERCP was also discussed with the patient and her questions seemed to be satisfactorily answered. She again requested food noting that she is feeling better, but the need to trend labs and possible ERCP was explained to the patient and she he seems to understand. Quality Stroke Does the patient have a stroke diagnosis?: No VTE Prior VTE?: No VTE Risk Level:: Surgical - moderate VTE Device Contraindication: N/A - Device Ordered VTE Drug Contraindication: Treatment Not Indicated Procedures Date of Service Date of Service: 09/06/23
[2023-09-06 13:21] LABS: Appearance Urine Clear; Color Urine Dark Yellow; Glucose Urine UA Negative (Negative); Leukocyte Esterase Urine Negative (Negative); Nitrite Urine Negative (Negative); Urine Blood Negative (Negative); Urine Ketones 40 mg/dL (Negative); Urine Protein Negative (Neg-Trace)
[2023-09-06 13:23] LABS: UPreg QC Valid YES; Urine Pregnancy NEGATIVE (NEGATIVE)
[2023-09-06] MEDS: iohexoL 350 MG/ML 100 ML INFUS..BTL 85 ML IV (14:14)
[2023-09-06 16:00] VITALS: BP 99/55; PULSE 57; RESP 16; TEMP 37.3; O2SAT 98
--- NOTE | 2023-09-06 16:46 | PHA.MEDREC ---
Pharmacy Consult ? Medication Reconciliation Pharmacy has completed the medication reconciliation.
[2023-09-06] MEDS: Lactated Ringers 1,000 ML 100 ML IVCONT (17:50)
[2023-09-06 18:00] VITALS: BP 101/52; PULSE 85; RESP 16; TEMP 36.3; O2SAT 97
[2023-09-06 18:53] VITALS: BP 111/56; PULSE 62; RESP 17; TEMP 36.9; O2SAT 98
[2023-09-06 20:00] VITALS: BP 111/77; PULSE 74; RESP 17; TEMP 36.3; O2SAT 98
[2023-09-06 20:40] LABS: Creatinine Clr Calc Pharmacy 97.5; Estimated Glomerular Filt Rate > 60
[2023-09-06] MEDS: Piperacillin Sodium/Tazobactam 3.375 GM in 0.9 % Sodium Chloride 50 ML IV (21:02)
[2023-09-06] MEDS: HYDROmorphone HCl 0.5 MG/0.5 ML SYRINGE 0.25 MG IVPUSH (21:18)
[2023-09-07] MEDS: Piperacillin Sodium/Tazobactam 3.375 GM in 0.9 % Sodium Chloride 50 ML IV ×4 (01:57→20:12)
[2023-09-07] MEDS: Acetaminophen 325 MG TABLET 650 MG PO ×2 (03:23→13:44)
[2023-09-07] MEDS: HYDROmorphone HCl 0.5 MG/0.5 ML SYRINGE 0.25 MG IVPUSH ×3 (03:24→20:09)
[2023-09-07 04:00] VITALS: BP 100/54; PULSE 60; RESP 16; TEMP 36.7; O2SAT 96
--- NOTE | 2023-09-07 05:56 | PM.GICN ---
History of Present Illness Data of Consult Service Date: 09/07/23 Requesting physician: Maximilian Graham Primary Care Provider: Mike Quintero MD HPI Reason for consult: choledocholithiasis ? 33 year old female w/ hx of sleeve gastrectomy, GERD, obesity and laparoscopic cholecystectomy on 09/05/2023 who I am seeing for abn LFT and abdominal pain Patient developed sudden crampy abdominal pain last night 10/10 in severity in the epigastric area with radiation like a band into the back, associated with several episodes of nausea and clear emesis. There were no exacerbating or releiving factors. She denies fever, and no diarrhea, constipation, bloody stools. Her intitial LFT were elevated as below but were slightly down trending today. Her pain is also improved and she wishes to try to eat as she feels hungry. MRCP and HIDA scans were done and were neg for CBD stone and bile leak. Review of Systems Review of Systems: Constitutional : No Weight loss, No Fever, No Chills ENT/Mouth : No sore throat, No Rhinorrhea Eyes: No Swelling, No Redness Cardiovascular : No Chest Pain, No SOB, No Edema Respiratory : No Cough, No Sputum, No Wheezing Gastrointestinal : see HPI Genitourinary : NO Dysuria, No Urinary Frequency, No Hematuria, No Urgency Musculoskeletal : No joint pain, No Myalgias, No Joint Swelling Skin : No Skin Lesions, No rash Neuro : No Weakness, No Numbness, No Dizziness, No Headache Psych : No Anxiety/Panic, No Depression Heme/Lymph: No Bruising, No Lymphadenopathy Endocrine : No Polyuria, No Polydipsia All other systems reviewed and are negative. Yes all other systems are reviewed and are negative Neurologic: Denies Sensory deficit (Neuro) [facility] Past Medical History Medical History (Reviewed 09/06/23 @ 16:28 by Maximilian Graham MD, [employer], Walk-in Appointment SchedulerS) Liver fibrosis Cholelithiasis GERD (gastroesophageal reflux disease) Postoperative nausea Renal calculi BMI 39.0-39.9,adult Back pain Morbid obesity Irritable bowel syndrome with both constipation and diarrhea Rectal bleeding Family History Family History Mother No problems noted. Father No problems noted. Brother Kidney disease Son No problems noted. Son No problems noted. Son No problems noted. Pertinent family history: Fh of gallbladder disease Surgical History Surgical History Hx laparoscopic cholecystectomy Hx of laparoscopic partial gastrectomy Hx of unilateral salpingectomy Hx of unilateral salpingectomy History of surgery Social History Social History Household Members: Family Household Members Other:: minor children Housing: House Are you a primary home health aide caregiver to a significant other at home: Yes (minor children) Do you presently have visiting nurse or other home services: No Alcohol intake: never Comment: NOT INDICATED Patient Tobacco Use Status: Never used Tobacco Smoked in Last 30 Days: No Use of substances other than those prescribed or required for medical reasons: No Currently Displaying Signs/Symptoms of Drug Intoxication Withdrawal: No Any prior treatment program specific to substance use: No Have you been hit, kicked, punched, or otherwise hurt by someone within the past year? If so, by whom?: No Do you feel safe in your current relationship?: Yes Is there a partner from a previous relationship who is making you feel unsafe now?: No Are you made to feel afraid or neglected: No Advance Directives: No Advance Directives Information Provided: Yes Do you have thoughts of harming others: None Do you have a plan to hurt others: No Plan Recently lost weight without trying: No How much weight loss: Not applicable Eating poorly because of decreased appetite: No Nutrition screen score: 0 Nutrition Risks: No Nutritional Risk Patient : No : No Poor oral hygiene: No service: No Meds Allergies Allergy/AdvReac Type Severity Reaction Status Date / Time No Known Allergies Allergy Verified 09/06/23 11:10 Active Medications: Current Medications Acetaminophen (Acetaminophen 325 Mg Tablet) 650 mg PO Q6H PRN PRN Reason: Pain, Mild (Pain Scale 1-3) Last Admin: 09/07/23 03:23 Dose: 650 mg Hydromorphone HCl (Hydromorphone Hcl 0.5 Mg/0.5 Ml Syringe) 0.25 mg IVPUSH Q2H PRN; Protocol PRN Reason: Pain, Moderate(Pain Scale 4-6) Last Admin: 09/07/23 03:24 Dose: 0.25 mg Lactated Ringer's (Lr) 1,000 mls @ 100 mls/hr IVCONT .Q10H [facility] Last Admin: 09/07/23 04:19 Dose: Not Given Piperacillin Sod/Tazobactam (Sod 3.375 gm/ Sodium Chloride) 50 mls @ 100 mls/hr IV Q6H [facility] Last Infusion: 09/07/23 02:35 Dose: Infused Ondansetron HCl (Ondansetron Hcl 4 Mg/2 Ml Vial) 4 mg IVPUSH Q6H PRN PRN Reason: Nausea and Vomiting Home Medications Medication Instructions Recorded Confirmed Last Taken Type ferrous sulfate 324 mg (65 mg 324 mg PO DAILY 09/06/23 09/06/23 09/06/23 History iron) tablet,delayed release morphine 15 mg immediate release 15 mg PO Q6H PRN pain 09/06/23 09/06/23 09/06/23 History tablet multivitamin 1 tab PO DAILY 09/06/23 09/06/23 09/06/23 History oxycodone 5 mg tablet 5 mg PO QID PRN Pain (Scale Score 09/06/23 09/06/23 09/06/23 History 7-10) Physical Exam Vital Signs: Vital Signs: Last Vital Signs Temp 98.1 F 09/07/23 04:00 Pulse 60 09/07/23 04:00 Resp 16 09/07/23 04:00 BP 100/54 L 09/07/23 04:00 Pulse Ox 96 09/07/23 04:00 O2 Del Method Room Air 09/07/23 04:00 BMI result Body Mass Index 29.0 EXAM: GENERAL: The patient is well developed and nontoxic. VITAL SIGNS:see workflow HEENT: Nonicteric sclerae, PERRLA, EOMI. Oropharynx clear. Moist mucous membranes. Conjunctivae appear well perfused. No thyroid mass. CHEST: Chest wall is nontender. HEART: Regular rate and rhythm without murmurs. LUNGS: Clear to auscultation bilaterally. ABDOMEN: Soft, positive bowel sounds, nontender, no organomegaly.no flank tenderness SKIN: No rash, no excessive bruising, petechiae, or purpura. NEUROLOGIC: Cranial nerves II-XII intact without motor/sensory deficit. Const: General: healthy appearing Nutritional Appearance: average body habitus Orientation/consciousness: oriented to person and patient oriented x3 Limitations: no limitations HEENT: Head: Yes normal to inspection Ears: external ears normal General nose exam: Normal external nose present Mouth: Normal oral and palatal mucosa present and oropharynx normal Throat: Yes posterior oropharynx normal Eyes: General: appearance normal, both eyes and all related structures Neck: Neck: Yes normal visual inspection Chest: Chest palpation & inspection: normal inspection of the chest Resp: Auscultation: clear to auscultation bilaterally Cardio: Jugular venous distension: no JVD Rate: regular rate Rhythm: regular rhythm Heart sounds: S1 normal heart sound present and S2 normal heart sound present GI: Other: well healing wounds, tender : General: Yes no CVA tenderness Back/Spine/Pelvis: Back: no CVA tenderness Skin: General skin exam: no rashes or lesions noted Neuro: General: oriented to person and patient oriented x3 Cranial nerves: Yes CN's II-XII intact bilaterally Motor exam (neuro): 5/5 motor strength present throughout Sensory Exam: No Sensory deficit (Neuro) Extrem: General: Yes normal to inspection Psych: Appearance: grossly normal Results Labs 09/07/23 06:40 09/07/23 06:40 Labs: BMP 09/06/23 12:22 Creatinine 0.83 Liver Function 09/06/23 Range/Units 12:22 Direct Bilirubin 2.6 H (0.0-0.5) mg/dL Urine 09/06/23 Range/Units 13:10 Urine Color Dark Yellow Urine Appearance Clear Urine pH 6.0 (5.0-9.0) Ur Specific [place] 1.010 (1.005-1.025) Urine Protein Negative (Neg-Trace) mg/dL Urine Glucose (UA) Negative (Negative) mg/dL Imaging MRI - abdomen: Attestation: I personally reviewed and interpreted this imaging study as follows: (no filling defect seen, ) Assessment and Plan (1) S/P laparoscopic cholecystectomy: Status: Acute (2) Elevated LFTs: Status: Acute Plan 1/ Abdominal pain and elevated LFT after lap CCY, likely passed a stone given her sx are improved and her LFT are down today PLAN: 1/ analgesia as needed 2/PO diet as tolerated 3/ if s persist and LFT cont uptrending can consider ERCP in case of false neg imaging Procedures Date of Service Date of Service: 09/07/23
[2023-09-07] MEDS: Lactated Ringers 1,000 ML 100 ML IVCONT (06:43)
[2023-09-07 06:45] LABS: MANUAL DIFF FLAG NO
[2023-09-07 06:52] LABS: Basophils Percent Auto 0.2 % (0-2); Eosinophils Percent Auto 0.5 % (0-4); Hematocrit 32.6 % (37.0-47.0); Hemoglobin 11.1 g/dl (12.0-16.0); Imm Gran Abs Auto 0.02 X10*3/uL (0.00-0.03); Imm Gran Pct Auto 0.4 % (0.0-0.4); Lymphocytes Absolute Auto 1.4 X10*3/uL (1.2-4.9); Lymphocytes Percent Auto 25.3 % (20-40); Mean Corpuscular Hemoglobin 30.7 pg (27.0-33.0); Mean Corpuscular Volume 90.3 fL (80.0-98.0); Mean Platelet Volume 11.3 fL (9.4-12.3); Monocytes Absolute Auto 0.5 X10*3/uL (0.1-1.2); Monocytes Percent Auto 8.4 % (2-11); Neutrophils Absolute Auto 3.6 x10*3/uL (2.0-8.3); Neutrophils Percent Auto 65.2 % (45-73); Platelet Count 165 X10*3/uL (160-400); Red Blood Count 3.61 X10*6/uL (4.20-5.50); Red Cell Distribution Width 11.7 % (11.0-16.0); White Blood Count 5.5 X10*3/uL (4.8-10.8)
[2023-09-07 07:03] VITALS: BP 115/64; PULSE 76; RESP 16; TEMP 36.1; O2SAT 94
--- NOTE | 2023-09-07 07:05 | PM.PNGS ---
Subjective Subjective Date of Service: 09/07/23 Patient reports: still having pain Interval history: The patient is seen at approximately 07:15 and reports that she is about the same as when she was in the office having nausea and predominantly back pain. Her symptoms are adequately managed with current medications. She otherwise denies chest pain, difficulty breathing or shortness of breath. Physical Exam Vital Signs: Vital Signs: Last Vital Signs Temp 97 F 09/07/23 07:03 Pulse 76 09/07/23 07:03 Resp 16 09/07/23 07:03 BP 115/64 09/07/23 07:03 Pulse Ox 94 09/07/23 07:03 O2 Del Method Room Air 09/07/23 07:03 BMI result Body Mass Index 29.0 On exam she is comfortable and in no acute distress She is having no respiratory difficulties Abdomen has vague discomfort in the epigastrium and right upper quadrant with no peritoneal sign Objective Data Active Medications Acetaminophen (Acetaminophen 325 Mg Tablet) 650 mg PO Q6H PRN PRN Reason: Pain, Mild (Pain Scale 1-3) Last Admin: 09/07/23 03:23 Dose: 650 mg Documented By: MARY Hydromorphone HCl (Hydromorphone Hcl 0.5 Mg/0.5 Ml Syringe) 0.25 mg IVPUSH Q2H PRN; Protocol PRN Reason: Pain, Moderate(Pain Scale 4-6) Last Admin: 09/07/23 03:24 Dose: 0.25 mg Documented By: MARY Lactated Ringer's (Lr) 1,000 mls @ 100 mls/hr IVCONT .Q10H [facility] Last Admin: 09/07/23 06:43 Dose: 100 mls/hr Documented By: MARY Piperacillin Sod/Tazobactam (Sod 3.375 gm/ Sodium Chloride) 50 mls @ 100 mls/hr IV Q6H [facility] Last Infusion: 09/07/23 02:35 Dose: Infused Documented By: ARIAN Ondansetron HCl (Ondansetron Hcl 4 Mg/2 Ml Vial) 4 mg IVPUSH Q6H PRN PRN Reason: Nausea and Vomiting Labs 09/07/23 06:40 09/07/23 06:40 Labs: Laboratory Results - last 24 hr 09/06/23 09/06/23 09/07/23 12:22 13:10 06:40 MCV 90.3 MCH 30.7 MCHC 34.0 RDW 11.7 Plt Count 165 D MPV 11.3 Immature Gran % (Auto) 0.4 Neut % (Auto) 65.2 Lymph % (Auto) 25.3 [place] % (Auto) 8.4 Eos % (Auto) 0.5 Baso % (Auto) 0.2 Lymph # (Auto) 1.4 [place] # (Auto) 0.5 Eos # (Auto) 0.0 Baso # (Auto) 0.0 Abs Immat Gran (auto) 0.02 Absolute Neuts (auto) 3.6 Absolute Nucleated RBC 0.000 Nucleated RBC % (auto) 0.0 Estim Creat Clear Calc 97.5 Estimated GFR > 60 Magnesium 1.9 Direct Bilirubin 2.6 H Lipase 107 H Urine Color Dark Yellow Urine Appearance Clear Urine pH 6.0 Ur Specific [place] 1.010 Urine Protein Negative Urine Glucose (UA) Negative Urine Ketones 40 Urine Blood Negative Urine Nitrite Negative Ur Leukocyte Esterase Negative Urine Test NEGATIVE This morning's LFTs are trending down, but still elevated. White blood cell count normal Imaging CT scan - abdomen: Radiologist's impression: Impressions Abdomen/Pelvis CT 09/06/23 14:36 IMPRESSION: Moderate free air and right perihepatic fluid collection status post laparoscopy cholecystectomy. There is no bowel obstruction Fleischner guidelines were followed. Cholangiopancreatography MRI 09/06/23 17:30 IMPRESSION: * No evidence of choledocholithiasis or biliary tract obstruction, status post cholecystectomy. * Findings are suggestive of mild anasarca. Trace pleural effusions are noted and small amount of free fluid is present within the abdomen. However, there is no localized/organized collection. * The periportal edema is nonspecific and could be a feature of hepatitis or mild fluid overload. MRI - abdomen: Radiologist's impression: Impressions Abdomen/Pelvis CT 09/06/23 14:36 IMPRESSION: Moderate free air and right perihepatic fluid collection status post laparoscopy cholecystectomy. There is no bowel obstruction Fleischner guidelines were followed. Cholangiopancreatography MRI 09/06/23 17:30 IMPRESSION: * No evidence of choledocholithiasis or biliary tract obstruction, status post cholecystectomy. * Findings are suggestive of mild anasarca. Trace pleural effusions are noted and small amount of free fluid is present within the abdomen. However, there is no localized/organized collection. * The periportal edema is nonspecific and could be a feature of hepatitis or mild fluid overload. Procedures Date of Service Date of Service: 09/07/23 Progress Note: A&P Assessment and plan (1) Biliary calculi, common bile duct: Status: Acute (2) Elevated LFTs: Status: Acute (3) S/P laparoscopic cholecystectomy: Status: Acute (4) Liver fibrosis: Status: Acute (5) S/P laparoscopic sleeve gastrectomy: Status: Acute (6) Obesity: Status: Acute (7) Adjustment disorder, unspecified: Status: Acute Plan Check HIDA to r/o bile leak Continue NPO except for ice chips Trend labs and physical exam. If HIDA is not consistent with a bile leak, will ask Dr. Galo for input. Time Spent With Patient Time: Total time managing care of this patient today ____ minutes. Quality Stroke Does the patient have a stroke diagnosis?: No VTE Prior VTE?: No VTE Risk Level:: Surgical - moderate VTE Device Contraindication: N/A - Device Ordered VTE Drug Contraindication: Treatment Not Indicated
[2023-09-07 07:07] LABS: Alanine Aminotransferase 307 U/L (0-31); Alkaline Phosphatase 153 U/L (39-117); Anion Gap 10 (12-20); Aspartate Amino Transferase 189 U/L (5-31); Bilirubin Total 2.8 mg/dL (0.0-1.0); Blood Urea Nitrogen 8 mg/dL (9-16); Calcium 8.4 mg/dL (8.4-10.2); Carbon Dioxide 24 mmol/L (22-29); Chloride 110 mmol/L (96-108); Creatinine Clr Calc Pharmacy 107.9; Estimated Glomerular Filt Rate > 60; Glucose Random 82 mg/dL (60-115); Potassium 3.6 mmol/L (3.3-5.1); Sodium 140 mmol/L (135-145)
--- NOTE | 2023-09-07 09:47 | MHC.CM.PN ---
CM MET WITH PATIENT AT BEDSIDE. FROM HOME WITH AND CHILDREN. INDEPENDENT, NO SERVICES. PCP: DR. JIMENEZ HCP: EDUCATION PROVIDED, PATIENT DECLINED TO COMPLETE AT THIS TIME DCP: HOME, SELF CARE, MOTHER TO TRANSPORT. CM WILL CONTINUE TO FOLLOW.
[2023-09-07] MEDS: ondansetron HCL 4 MG/2 ML VIAL IVPUSH (13:45)
[2023-09-07 15:28] VITALS: BP 99/54; PULSE 67; RESP 15; TEMP 36.1; O2SAT 96
[2023-09-07 19:28] VITALS: BP 112/63; PULSE 62; RESP 18; TEMP 36.2; O2SAT 98
[2023-09-08] MEDS: Piperacillin Sodium/Tazobactam 3.375 GM in 0.9 % Sodium Chloride 50 ML IV ×2 (03:23→07:28)
[2023-09-08 04:00] VITALS: BP 108/62; PULSE 71; RESP 18; TEMP 36.7; O2SAT 95
[2023-09-08] MEDS: HYDROmorphone HCl 0.5 MG/0.5 ML SYRINGE 0.25 MG IVPUSH (04:03)
[2023-09-08] MEDS: Lactated Ringers 1,000 ML 70 ML IVCONT (04:07)
[2023-09-08 06:30] LABS: MANUAL DIFF FLAG NO
[2023-09-08 06:40] LABS: Basophils Percent Auto 0.2 % (0-2); Eosinophils Absolute Auto 0.1 X10*3/uL (0.0-0.4); Eosinophils Percent Auto 2.2 % (0-4); Hematocrit 32.9 % (37.0-47.0); Hemoglobin 11.3 g/dl (12.0-16.0); Imm Gran Abs Auto 0.01 X10*3/uL (0.00-0.03); Imm Gran Pct Auto 0.2 % (0.0-0.4); Lymphocytes Absolute Auto 1.5 X10*3/uL (1.2-4.9); Lymphocytes Percent Auto 35.5 % (20-40); Mean Corpuscular HGB Conc 34.3 g/dl (31.0-35.0); Mean Corpuscular Hemoglobin 30.9 pg (27.0-33.0); Mean Corpuscular Volume 89.9 fL (80.0-98.0); Mean Platelet Volume 11.6 fL (9.4-12.3); Monocytes Absolute Auto 0.4 X10*3/uL (0.1-1.2); Monocytes Percent Auto 8.6 % (2-11); Neutrophils Absolute Auto 2.2 x10*3/uL (2.0-8.3); Neutrophils Percent Auto 53.3 % (45-73); Platelet Count 177 X10*3/uL (160-400); Red Blood Count 3.66 X10*6/uL (4.20-5.50); Red Cell Distribution Width 11.5 % (11.0-16.0); White Blood Count 4.2 X10*3/uL (4.8-10.8)
[2023-09-08 06:52] LABS: Alanine Aminotransferase 211 U/L (0-31); Albumin Level 3.1 g/dL (3.5-5.0); Alkaline Phosphatase 150 U/L (39-117); Anion Gap 10 (12-20); Aspartate Amino Transferase 71 U/L (5-31); Bilirubin Total 1.1 mg/dL (0.0-1.0); Blood Urea Nitrogen 8 mg/dL (9-16); Calcium 8.7 mg/dL (8.4-10.2); Carbon Dioxide 26 mmol/L (22-29); Chloride 108 mmol/L (96-108); Estimated Glomerular Filt Rate > 60; Glucose Random 87 mg/dL (60-115); Potassium 3.7 mmol/L (3.3-5.1); Sodium 140 mmol/L (135-145); Total Protein 6.2 g/dL (6.5-8.0)
--- NOTE | 2023-09-08 07:32 | PM.PNGS ---
Subjective Subjective Date of Service: 09/08/23 Patient reports: feels better Interval history: The patient tolerated a low-fat diet yesterday but notes continuing issues with nausea and some pain. She denies any chest pain, difficulty breathing or shortness of breath. She was seen at about 07:00 initially Physical Exam Vital Signs: Vital Signs: Last Vital Signs Temp 98.0 F 09/08/23 04:00 Pulse 71 09/08/23 04:00 Resp 18 09/08/23 04:00 BP 108/62 09/08/23 04:00 Pulse Ox 95 09/08/23 04:00 O2 Del Method Room Air 09/08/23 04:00 BMI result Body Mass Index 29.0 On exam, she is anicteric and nontoxic She is having no respiratory distress Abdomen has vague epigastric discomfort and right upper quadrant discomfort but no peritoneal sign. Objective Data Active Medications Acetaminophen (Acetaminophen 325 Mg Tablet) 650 mg PO Q6H PRN PRN Reason: Pain, Mild (Pain Scale 1-3) Last Admin: 09/07/23 13:44 Dose: 650 mg Documented By: GLENROY Hydromorphone HCl (Hydromorphone Hcl 0.5 Mg/0.5 Ml Syringe) 0.25 mg IVPUSH Q2H PRN; Protocol PRN Reason: Pain, Moderate(Pain Scale 4-6) Last Admin: 09/08/23 04:03 Dose: 0.25 mg Documented By: MARY Lactated Ringer's (Lr) 1,000 mls @ 70 mls/hr IVCONT .[id number] [facility] Last Admin: 09/08/23 04:07 Dose: 70 mls/hr Documented By: MARY Piperacillin Sod/Tazobactam (Sod 3.375 gm/ Sodium Chloride) 50 mls @ 100 mls/hr IV Q6H [facility] Last Admin: 09/08/23 07:28 Dose: 100 mls/hr Documented By: JA Ondansetron HCl (Ondansetron Hcl 4 Mg/2 Ml Vial) 4 mg IVPUSH Q6H PRN PRN Reason: Nausea and Vomiting Last Admin: 09/07/23 13:45 Dose: 4 mg Documented By: GLENROY Labs 09/08/23 06:24 09/08/23 06:24 Labs: Laboratory Results - last 24 hr 09/08/23 06:24 MCV 89.9 MCH 30.9 MCHC 34.3 RDW 11.5 Plt Count 177 MPV 11.6 Immature Gran % (Auto) 0.2 Neut % (Auto) 53.3 Lymph % (Auto) 35.5 [place] % (Auto) 8.6 Eos % (Auto) 2.2 Baso % (Auto) 0.2 Lymph # (Auto) 1.5 [place] # (Auto) 0.4 Eos # (Auto) 0.1 Baso # (Auto) 0.0 Abs Immat Gran (auto) 0.01 Absolute Neuts (auto) 2.2 Absolute Nucleated RBC 0.000 Nucleated RBC % (auto) 0.0 Anion Gap 10 L Estim Creat Clear Calc 119.0 Estimated GFR > 60 Random Glucose 87 Calcium 8.7 Total Bilirubin 1.1 H AST 71 H ALT 211 H Alkaline Phosphatase 150 H Total Protein 6.2 L Albumin 3.1 L Procedures Date of Service Date of Service: 09/08/23 Progress Note: A&P Assessment and plan (1) Biliary calculi, common bile duct: Status: Acute (2) Elevated LFTs: Status: Acute (3) S/P laparoscopic cholecystectomy: Status: Acute (4) Liver fibrosis: Status: Acute (5) S/P laparoscopic sleeve gastrectomy: Status: Acute (6) Obesity: Status: Acute Plan Explained to the patient that her LFTs have been trending down and clinically, she is doing better. However, if she is still having pain requiring IV narcotics, or significant nausea/vomiting, it is possible that sludge or debris that cannot be appreciated on MRCP is present in the duct and symptomatic. Options regarding discharge home and continued low-fat diet/bariatric diet was discussed and I will touch base with her later today to assess her comfort level. Explained that there is no evidence of bile leak or other significant pathology at this time. She stated that she would like to discuss with her , Brian, have breakfast and be re-evaluated later in the day. Time Spent With Patient Time: Total time managing care of this patient today ____ minutes. Quality Stroke Does the patient have a stroke diagnosis?: No VTE Prior VTE?: No VTE Risk Level:: Surgical - moderate VTE Device Contraindication: N/A - Device Ordered VTE Drug Contraindication: Treatment Not Indicated
[2023-09-08 07:59] VITALS: BP 118/60; PULSE 54; RESP 18; TEMP 36.4; O2SAT 96
--- NOTE | 2023-09-08 09:39 | P.DS_ITS ---
DS: Providers Provider Date of Service: 09/08/23 Date of admission: 09/06/23 16:24 Primary care physician: Mike Quintero MD Consults: 09/06/23 15:41 Consult to Gastroenterology Routine Consulting Provider: Ricardo Galo Reason for consultation: Choledocholithiasis DS: Diagnosis Discharge Diagnosis (1) Biliary calculi, common bile duct: Status: Acute (2) Elevated LFTs: Status: Acute (3) S/P laparoscopic cholecystectomy: Status: Acute (4) Liver fibrosis: Status: Acute (5) S/P laparoscopic sleeve gastrectomy: Status: Acute (6) Obesity: Status: Acute DS: Summary Hospital Course Hospital Course: See admitting H and P for full details. The patient underwent an uneventful laparoscopic cholecystectomy for symptoms of biliary colic on 09/05/2023. She was discharged home in overnight started to experience back pain with nausea and vomiting. She was evaluated in the office and sent to the ER for workup for choledocholithiasis. LFTs were elevated but MRCP was negative for c holedocholithiasis; HIDA scan to assess for bile leak was negative; CT confirmed free air and fluid as to be expected after postop laparoscopic cholecystectomy. Patient clinically improved and referral to GI was placed who agreed that the patient likely passed a stone and was clinically improving. By the day of discharge, she had been tolerating a low-fat diet for 2 days and her LFTs continue to normalize. Her white count remained normal so her antibiotics for discontinued. Overall condition at the time of discharge is improved Time Attestation Discharge coordination time: Greater than 30 minutes Quality: Safe Use of Opioids Does Pt have an Active Cancer Diagnosis on the Problem List?: No Quality: Stroke Does the patient have a stroke diagnosis?: No Physical Exam Vital Signs: Vital Signs: Last Vital Signs Temp 97.5 F 09/08/23 07:59 Pulse 54 09/08/23 07:59 Resp 18 09/08/23 07:59 BP 118/60 09/08/23 07:59 Pulse Ox 96 09/08/23 07:59 O2 Del Method Room Air 09/08/23 07:59 BMI result Body Mass Index 29.0 DS: Data Data Completed and Pending Completed studies during hospitalization [Text1]: Procedures Excision of Stomach, Percutaneous Endoscopic Approach, Vertical (02/15/23) Labs on day of discharge: Laboratory Results - last 24 hr 09/08/23 06:24 WBC 4.2 L RBC 3.66 L Hgb 11.3 L Hct 32.9 L MCV 89.9 MCH 30.9 MCHC 34.3 RDW 11.5 Plt Count 177 MPV 11.6 Immature Gran % (Auto) 0.2 Neut % (Auto) 53.3 Lymph % (Auto) 35.5 [place] % (Auto) 8.6 Eos % (Auto) 2.2 Baso % (Auto) 0.2 Lymph # (Auto) 1.5 [place] # (Auto) 0.4 Eos # (Auto) 0.1 Baso # (Auto) 0.0 Abs Immat Gran (auto) 0.01 Absolute Neuts (auto) 2.2 Absolute Nucleated RBC 0.000 Nucleated RBC % (auto) 0.0 Sodium 140 Potassium 3.7 Chloride 108 Carbon Dioxide 26 Anion Gap 10 L BUN 8 L Creatinine 0.68 Estim Creat Clear Calc 119.0 Estimated GFR > 60 Random Glucose 87 Calcium 8.7 Total Bilirubin 1.1 H AST 71 H ALT 211 H Alkaline Phosphatase 150 H Total Protein 6.2 L Albumin 3.1 L Discharge Plan Discharge Anticipated Discharge Date/Time: 09/08/23 09:42 Patient Disposition: Home, Self-Care Discharge Diagnosis: choledocholithiasis s/p lap alia Referrals: Mike Quintero MD [Primary Care Provider] - 1 Week Maximilian Graham MD, FACS, [facility] [Physician] - 1 Week Discharge Medications: Continued pantoprazole 40 mg tablet,delayed release (DR/EC) 40 mg PO DAILY 90 Days Qty: 90 1RF ondansetron 4 mg tablet,disintegrating 4 mg PO Q8H PRN (Reason: nausea and vomiting) Qty: 20 0RF multivitamin Tablet 1 tab PO DAILY morphine 15 mg tablet 15 mg PO Q6H PRN (Reason: pain) oxycodone 5 mg tablet 5 mg PO QID PRN (Reason: Pain (Scale Score 7-10)) ferrous sulfate 324 mg (65 mg iron) Tablet,Delayed Release (Dr/Ec) 324 mg PO DAILY Discharge Orders: Discharge Order (Routine); Ordered 09/08/23 Ordered By: Maximilian Graham Diet: Low fat Activity on Discharge: No heavy lifting Stand Alone Forms: Patient Portal Discharge page Activity Restrictions/Additional Instructions: You had a laparoscopic cholecystectomy performed by Dr. Graham 09/05/23. This discomfort will resolve over the next 1-3 days, however, if it gets progressively worse, if you should develop worsening pain, nausea, vomiting and cannot keep liquids down, chest pain, difficulty breathing or shortness of breath, fevers over 100F please report to the nearest emergency department. You passed a small gallstone through your bile duct, but appear to be getting better. If you have return of your pain, contact Dr. Graham, the bariatric PA or go to the nearest emeergency room. Unless otherwise directed by Dr. Graham, you should resume taking your regular medications. As Dr. Graham reviewed in the office, you must not lift more than 20 lb for the next 4 weeks. Strenuous activities can tear out your sutures and cause an incisional hernia that would require another operation. Activities to be avoided include: sports, running, bicycling, yoga, lifting more than 20 lb, digging, gardening, splitting/carrying wood, swimming, hiking uphill, and other activities. If you have questions regarding this specific activity, please check with Dr. Graham. If your incisions become red, swollen, tender or draining pus, please contact Dr. Graham or go to the nearest emergency department. Remove band-aids & leave paper tapes on your skin; ok to shower. Do not soak in a tub or pool. You have been prescribed narcotic pain medicine that will cause constipation. Please purchase qjrx-fux-pmlrbio stool softener known as Colace/docusate, 100 mg. Take 2 tablets with breakfast and the morning and 2 tablets in the evening after dinner until your bowels are moving and urine or longer taking narcotics. Please note that if you are not taking narcotics, the general anesthesia for the procedure can still cause constipation. If you experience diarrhea, stop taking the stool softener medicine. You can take yiro-nrm-vnttelz Tylenol/acetaminophen with for pain unless you have an allergy or medical reason you are not not allowed to take it. You zoran uld also use ice packs to the operative site to help minimize pain and swelling for the first 3 days, or as needed afterwards. Unless there is a medical reason to avoid these medicines, you should take 2 rbbh-ofc-[id number] Tylenol every 6 hours for the first 3 days to help with pain. [place] the narcotic medicine oxycodone only if needed since it will cause nausea, vomiting & constipation. Remember that the gallbladder helps to to digest fatty foods. If you eat fried foods; rich, creamy sauces; cheese; gravies or other such heavy, greasy foods, you will likely develop gas and bloating and diarrhea. To minimize this risk, eat a high protein, high-fiber, low-fat diet for the next few weeks. You can resume your bariatric diet and protein shakes as directed at your prior bariatric appointment. Please follow up with the bariatric PA as previously scheduled. Care Plan Goals: Allow postoperative healing Health Concerns: Allow postoperative healing; repeat liver function labs Plan of Treatment: Low-fat bariatric diet/activity restrictions Assessment: Choledocholithiasis
--- NOTE | 2023-09-08 10:25 | MHC.CM.PN ---
Patient is discharged to home today self care. She has arranged for transportation home.
== END 2023-09-08 11:44 | disposition home or self-care (01) | DRG 861 ==
LOC: HO.ED 16:04 → HO.EDOVER 16:37 → HO.S3 16:46
PROVIDERS: Physician Assistant; Admitting Provider Surgery; Emergency Provider Emergency Medicine; PCP Internal Medicine; Visit Provider Surgery
DX: G89.18 Other acute postprocedural pain (principal); K74.00 Hepatic fibrosis, unspecified; F43.20 Adjustment disorder, unspecified; Z23 Encounter for immunization; Z98.84 Bariatric surgery status; Z79.899 Other long term (current) drug therapy
CPT/HCPCS: 36415; 74177; 74181; 78226; 80053; 81003; 81025; 82248; 82565; 83690; 83735; 85025; 90686; 99285; A9537; J1170; J2270; J2405; J2543; J7120; Q9967

== ENCOUNTER → 2023-09-06 12:27 | Outpatient (BNV) | payer OTHER, SELFPAY | PROVIDERS: Emergency Provider Emergency Medicine; PCP Internal Medicine; Visit Provider Surgery | DX: K80.50 Calculus of bile duct without cholangitis or cholecystitis without obstruction (principal); R79.89 Other specified abnormal findings of blood chemistry; Z90.49 Acquired absence of other specified parts of digestive tract; K74.00 Hepatic fibrosis, unspecified; Z98.84 Bariatric surgery status; E66.9 Obesity, unspecified | CPT/HCPCS: 99024 ==

== ENCOUNTER → 2023-09-06 16:24 | Outpatient (BNV) | payer OTHER, SELFPAY | PROVIDERS: Admitting Provider Surgery; Emergency Provider Emergency Medicine; PCP Internal Medicine; Visit Provider Internal Medicine Gastroenterology | DX: Z90.49 Acquired absence of other specified parts of digestive tract (principal); R79.89 Other specified abnormal findings of blood chemistry | CPT/HCPCS: 99223 ==

== ENCOUNTER 2023-09-12 10:54 | Outpatient (REF) | payer OTHER, SELFPAY ==
[2023-09-12 11:11] LABS: MANUAL DIFF FLAG NO
[2023-09-12 11:14] LABS: Basophils Percent Auto 0.2 % (0-2); Eosinophils Absolute Auto 0.1 X10*3/uL (0.0-0.4); Eosinophils Percent Auto 2.3 % (0-4); Hematocrit 39.6 % (37.0-47.0); Hemoglobin 13.6 g/dl (12.0-16.0); Imm Gran Abs Auto 0.01 X10*3/uL (0.00-0.03); Imm Gran Pct Auto 0.2 % (0.0-0.4); Lymphocytes Absolute Auto 1.9 X10*3/uL (1.2-4.9); Lymphocytes Percent Auto 31.1 % (20-40); Mean Corpuscular HGB Conc 34.3 g/dl (31.0-35.0); Mean Corpuscular Hemoglobin 31.3 pg (27.0-33.0); Mean Platelet Volume 10.8 fL (9.4-12.3); Monocytes Absolute Auto 0.6 X10*3/uL (0.1-1.2); Monocytes Percent Auto 9.5 % (2-11); Neutrophils Absolute Auto 3.5 x10*3/uL (2.0-8.3); Neutrophils Percent Auto 56.7 % (45-73); Platelet Count 256 X10*3/uL (160-400); Red Blood Count 4.35 X10*6/uL (4.20-5.50); Red Cell Distribution Width 11.8 % (11.0-16.0); White Blood Count 6.2 X10*3/uL (4.8-10.8)
[2023-09-12 11:26] LABS: Alanine Aminotransferase 108 U/L (0-31); Albumin Level 3.8 g/dL (3.5-5.0); Alkaline Phosphatase 116 U/L (39-117); Amylase 53 U/L (28-100); Anion Gap 12 (12-20); Aspartate Amino Transferase 40 U/L (5-31); Bilirubin Total 0.8 mg/dL (0.0-1.0); Blood Urea Nitrogen 8 mg/dL (9-16); Calcium 9.7 mg/dL (8.4-10.2); Carbon Dioxide 27 mmol/L (22-29); Chloride 107 mmol/L (96-108); Estimated Glomerular Filt Rate > 60; Glucose Random 91 mg/dL (60-115); Potassium 4.2 mmol/L (3.3-5.1); Sodium 142 mmol/L (135-145); Total Protein 7.6 g/dL (6.5-8.0)
== END 2023-09-12 10:55 | disposition home or self-care (01) ==
LOC: HO.LAB 10:54
PROVIDERS: PCP Internal Medicine; Visit Provider Surgery
DX: E66.9 Obesity, unspecified (principal); F43.20 Adjustment disorder, unspecified; E55.9 Vitamin D deficiency, unspecified; K74.00 Hepatic fibrosis, unspecified; Z98.84 Bariatric surgery status; Z90.49 Acquired absence of other specified parts of digestive tract
CPT/HCPCS: 36415; 80053; 82150; 85025; 99212

== ENCOUNTER 2023-09-12 11:14 | Outpatient (AMB) | payer OTHER, SELFPAY ==
--- NOTE | 2023-09-12 11:20 | A.OFFVIS_ITS ---
Intake Vital Signs 09/12/23 11:22 Height 5 ft 4 in Weight 168 lb 13.985 oz BMI 29.0 BP 119/60 Blood Pressure Location Rt brachial Position Sitting Pulse 70 Pulse Source Pulse Oximeter Temp 97.6 F Temp Source Tympanic Pulse Oximetry (%) 98 Oxygen Delivery Method Room Air Intake Visit Reasons: S/P lap alia Allergies No Known Allergies Allergy (Verified 09/06/23 11:10) HPI HPI Comments History of Present Illness Details The patient underwent laparoscopic cholecystectomy on 09/05/2023. The procedure was uneventful and the patient was discharged home. She contacted the office last week and was admitted with elevated LFTs and borderline dilated CBD at 8 mm. Workup included MRCP that was negative for choledocholithiasis, HIDA scan that was negative for a bile leak and CT that demonstrated expected fluid & gas. The patient had a GI evaluation with Dr. Galo and it was felt she passed some sludge/debris and her LFTs improved. She was discharged home last , 09/08 and reports that she is doing well with the exception of feeling foggy and weak. She had undergone sleeve gastrectomy in Feb, 2023 and is due for 6 month labs. Since discharge, she tried a new protein product that gave her some rash in she is going to by celebrate protein shakes at the gift shop The patient is accompanied by her Brian & she gave permission to speak and answer his questions. Patient is having no acute respiratory distress. [facility] Medical History Liver fibrosis Cholelithiasis GERD (gastroesophageal reflux disease) Postoperative nausea Renal calculi BMI 39.0-39.9,adult Back pain Morbid obesity Irritable bowel syndrome with both constipation and diarrhea Rectal bleeding Surgical History Hx laparoscopic cholecystectomy Hx of laparoscopic partial gastrectomy Hx of unilateral salpingectomy Hx of unilateral salpingectomy History of surgery Family History Mother No problems noted. Father No problems noted. Brother Kidney disease Son No problems noted. Son No problems noted. Son No problems noted. Social History Household Members: Family Household Members Other:: minor children Housing: House Are you a primary director of managed care to a significant other at home: Yes (minor children) Do you presently have visiting nurse or other home services: No Alcohol intake: never Comment: NOT INDICATED Patient Tobacco Use Status: Never used Tobacco service: No Review of Systems Const All systems reviewed & are unremarkable except as noted in HPI and below Physical Exam Vital Signs: Last Vital Signs Temp 97.6 F 09/12/23 11:22 Pulse 70 09/12/23 11:22 BP 119/60 09/12/23 11:22 Pulse Ox 98 09/12/23 11:22 Oxygen Delivery Method Room Air 09/12/23 11:22 BMI result Body Mass Index 29.0 On exam she is anicteric and in no acute distress She is in surprisingly good spirits She is having no respiratory difficulty Her abdomen is soft with expected minimal incisional tenderness and she raised concerns about malodorous drainage from umbilicus; I removed the Steri-Strips and there is no evidence of infection, in the supraumbilical midline incision, however her weight loss and panniculus make cleaning her umbilicus difficult and there is no evidence of cellulitis or umbilical infection, but malodorous odor is present Results Reviewed Results Reviewed: Labs today show a normal total bilirubin is 0.8 down from admitting 3.3, alkaline phosphatase is normal at 116 which is down from hospitalization Patient's AST is slightly elevated at 40 but still down from admission ALT is down to 108 Patient's hemoglobin is normal at 13.6 with normal chromic/normocytic indices, platelet count 156 K, white blood cell count slightly elevated 11.1 BUN is 8, creatinine 0.82, lytes within normal parameters Pathology demonstrating chronic calculous cholecystitis with no evidence of neoplasm or atypia is noted. Assessment & Plan Assessment & Plan (1) S/P laparoscopic sleeve gastrectomy: Code(s): Z98.84 - Bariatric surgery status (2) S/P laparoscopic cholecystectomy: Code(s): Z90.49 - Acquired absence of other specified parts of digestive tract (3) Liver fibrosis: Code(s): K74.00 - Hepatic fibrosis, unspecified (4) Obesity: Code(s): E66.9 - Obesity, unspecified (5) Adjustment disorder, unspecified: Code(s): F43.20 - Adjustment disorder, unspecified (6) Vitamin D deficiency: Code(s): E55.9 - Vitamin D deficiency, unspecified Plan Instructions regarding diet and activity reviewed and apparently understood. Patient will obtain either celebrate 4 in 1 or celebrate rebuild shakes since she tolerated those before without any skin reaction. I have recommended the patient stay out of work for another week for medical reasons. She is due for bariatric labs and given her vague symptoms of feeling off and foggy, I will see her back in 1 week to assess both her LFTs and vitamins. I did explain to the patient that this may be normal postoperative sequela and it may resolve, however being evaluated by her PCP to assess for other etiologies of these vague symptoms may be required. Patient will contact me if she has return of abdominal/back pain, vomiting or other issues, otherwise I will see her next week. A work note was provided. Orders: Orders Comprehensive Met. Panel Today K74.00 - Hepatic fibrosis, unspecified, Z90.49 - Acquired absence of other specified parts of digestive tract, Z98.84 - Bariatric surgery status Hemoglobin A1c Today E55.9 - Vitamin D deficiency, unspecified, E66.9 - Obesity, unspecified, F43.20 - Adjustment disorder, unspecified, K74.00 - Hepatic fibrosis, unspecified, Z90.49 - Acquired absence of other specified parts of digestive tract, Z98.84 - Bariatric surgery status Lipid Panel Today E55.9 - Vitamin D deficiency, unspecified, E66.9 - Obesity, unspecified, F43.20 - Adjustment disorder, unspecified, K74.00 - Hepatic fibrosis, unspecified, Z90.49 - Acquired absence of other specified parts of digestive tract, Z98.84 - Bariatric surgery status IRON PROFILE Today E55.9 - Vitamin D deficiency, unspecified, E66.9 - Obesity, unspecified, F43.20 - Adjustment disorder, unspecified, K74.00 - Hepatic fibrosis, unspecified, Z90.49 - Acquired absence of other specified parts of digestive tract, Z98.84 - Bariatric surgery status Comprehensive Met. Panel Today E55.9 - Vitamin D deficiency, unspecified, E66.9 - Obesity, unspecified, F43.20 - Adjustment disorder, unspecified, K74.00 - Hepatic fibrosis, unspecified, Z90.49 - Acquired absence of other specified parts of digestive tract, Z98.84 - Bariatric surgery status Vitamin B12 and Folate Today E55.9 - Vitamin D deficiency, unspecified, E66.9 - Obesity, unspecified, F43.20 - Adjustment disorder, unspecified, K74.00 - Hepatic fibrosis, unspecified, Z90.49 - Acquired absence of other specified parts of digestive tract, Z98.84 - Bariatric surgery status Zinc Today E55.9 - Vitamin D deficiency, unspecified, E66.9 - Obesity, unspecified, F43.20 - Adjustment disorder, unspecified, K74.00 - Hepatic fibrosis, unspecified, Z90.49 - Acquired absence of other specified parts of digestive tract, Z98.84 - Bariatric surgery status C Reactive Protein Today E55.9 - Vitamin D deficiency, unspecified, E66.9 - Obesity, unspecified, F43.20 - Adjustment disorder, unspecified, K74.00 - Hep atic fibrosis, unspecified, Z90.49 - Acquired absence of other specified parts of digestive tract, Z98.84 - Bariatric surgery status Vitamin A Today E55.9 - Vitamin D deficiency, unspecified, E66.9 - Obesity, unspecified, F43.20 - Adjustment disorder, unspecified, K74.00 - Hepatic fibrosis, unspecified, Z90.49 - Acquired absence of other specified parts of digestive tract, Z98.84 - Bariatric surgery status Ferritin Today E55.9 - Vitamin D deficiency, unspecified, E66.9 - Obesity, unspecified, F43.20 - Adjustment disorder, unspecified, K74.00 - Hepatic fibrosis, unspecified, Z90.49 - Acquired absence of other specified parts of digestive tract, Z98.84 - Bariatric surgery status Vitamin D 25-OH Total Today E55.9 - Vitamin D deficiency, unspecified, E66.9 - Obesity, unspecified, F43.20 - Adjustment disorder, unspecified, K74.00 - Hepatic fibrosis, unspecified, Z90.49 - Acquired absence of other specified part s of digestive tract, Z98.84 - Bariatric surgery status Complete Blood Count Auto Diff Today K74.00 - Hepatic fibrosis, unspecified, Z90.49 - Acquired absence of other specified parts of digestive tract, Z98.84 - Bariatric surgery status Amylase Today K74.00 - Hepatic fibrosis, unspecified, Z90.49 - Acquired absence of other specified parts of digestive tract, Z98.84 - Bariatric surgery status Insulin Today E55.9 - Vitamin D deficiency, unspecified, E66.9 - Obesity, unspecified, F43.20 - Adjustment disorder, unspecified, K74.00 - Hepatic fibrosis, unspecified, Z90.49 - Acquired absence of other specified parts of digestive tract, Z98.84 - Bariatric surgery status H Pylori Breath Test Today E55.9 - Vitamin D deficiency, unspecified, E66.9 - Obesity, unspecified, F43.20 - Adjustment disorder, unspecified, K74.00 - Hepatic fibrosis, unspecified, Z90.49 - Acquired absence of other specified parts of digestive tract, Z98.84 - Bariatric surgery status Complete Blood Count Auto Diff Today E55.9 - Vitamin D deficiency, unspecified, E66.9 - Obesity, unspecified, F43.20 - Adjustment disorder, unspecified, K74.00 - Hepatic fibrosis, unspecified, Z90.49 - Acquired absence of other specified parts of digestive tract, Z98.84 - Bariatric surgery status Vitamin B1 Today E55.9 - Vitamin D deficiency, unspecified, E66.9 - Obesity, unspecified, F43.20 - Adjustment disorder, unspecified, K74.00 - Hepatic fibrosis, unspecified, Z90.49 - Acquired absence of other specified parts of digestive tract, Z98.84 - Bariatric surgery status TSH reflex Free T4 Today E55.9 - Vitamin D deficiency, unspecified, E66.9 - Obesity, unspecified, F43.20 - Adjustment disorder, unspecified, K74.00 - Hepatic fibrosis, unspecified, Z90.49 - Acquired absence of other specified parts of digestive tract, Z98.84 - Bariatric surgery status Coding Level of Care Code Global (38093) Diagnoses S/P laparoscopic sleeve gastrectomy Z98.84 S/P laparoscopic cholecystectomy Z90.49 Liver fibrosis K74.00 Obesity E66.9 Adjustment disorder, unspecified F43.20 Vitamin D deficiency E55.9
[2023-09-12 11:22] VITALS: BP 119/60; PULSE 70; TEMP 36.4; O2SAT 98; BMI 29.0
== END 2023-09-12 11:50 | disposition home or self-care (01) ==
PROVIDERS: PCP Internal Medicine; Visit Provider Surgery
DX: Z98.84 Bariatric surgery status (principal); Z90.49 Acquired absence of other specified parts of digestive tract; K74.00 Hepatic fibrosis, unspecified; E66.9 Obesity, unspecified; F43.20 Adjustment disorder, unspecified; E55.9 Vitamin D deficiency, unspecified
CPT/HCPCS: 99024

== ENCOUNTER 2023-09-14 09:02 | Outpatient (REF) | payer OTHER, SELFPAY ==
[2023-09-14 09:26] LABS: MANUAL DIFF FLAG NO
[2023-09-14 09:52] LABS: Basophils Percent Auto 0.2 % (0-2); Eosinophils Absolute Auto 0.1 X10*3/uL (0.0-0.4); Eosinophils Percent Auto 2.3 % (0-4); Hematocrit 39.8 % (37.0-47.0); Hemoglobin 13.5 g/dl (12.0-16.0); Imm Gran Abs Auto 0.02 X10*3/uL (0.00-0.03); Imm Gran Pct Auto 0.4 % (0.0-0.4); Lymphocytes Absolute Auto 1.9 X10*3/uL (1.2-4.9); Lymphocytes Percent Auto 35.2 % (20-40); Mean Corpuscular HGB Conc 33.9 g/dl (31.0-35.0); Mean Corpuscular Hemoglobin 31.1 pg (27.0-33.0); Mean Corpuscular Volume 91.7 fL (80.0-98.0); Mean Platelet Volume 11.5 fL (9.4-12.3); Monocytes Absolute Auto 0.6 X10*3/uL (0.1-1.2); Monocytes Percent Auto 10.4 % (2-11); Neutrophils Absolute Auto 2.7 x10*3/uL (2.0-8.3); Neutrophils Percent Auto 51.5 % (45-73); Platelet Count 264 X10*3/uL (160-400); Red Blood Count 4.34 X10*6/uL (4.20-5.50); Red Cell Distribution Width 11.8 % (11.0-16.0); White Blood Count 5.3 X10*3/uL (4.8-10.8)
[2023-09-14 10:38] LABS: Estimated Average Glucose 88 mg/dL; Hemoglobin A1c % 4.7 % (<6.0)
[2023-09-14 10:43] LABS: Alanine Aminotransferase 70 U/L (0-31); Albumin Level 3.9 g/dL (3.5-5.0); Alkaline Phosphatase 106 U/L (39-117); Anion Gap 12 (12-20); Aspartate Amino Transferase 21 U/L (5-31); Bilirubin Total 0.8 mg/dL (0.0-1.0); Blood Urea Nitrogen 11 mg/dL (9-16); C Reactive Protein 0.23 mg/dL (< or = 0.50); Calcium 9.7 mg/dL (8.4-10.2); Carbon Dioxide 27 mmol/L (22-29); Chloride 107 mmol/L (96-108); Cholesterol 138 mg/dL (<200); Estimated Glomerular Filt Rate > 60; Glucose Random 94 mg/dL (60-115); HDL Cholesterol 38 mg/dL (>40); Iron 115 mcg/dL (30-160); LDL Cholesterol Calculated 77 mg/dL (<100); Percent Iron Saturation 44 % (15-50); Potassium 3.9 mmol/L (3.3-5.1); Sodium 142 mmol/L (135-145); Total Iron Binding Capacity 259 mcg/dL (228-428); Total Protein 7.8 g/dL (6.5-8.0); Triglycerides 116 mg/dL (<150); Unsaturated Iron Binding 144 ug/dL
[2023-09-14 11:00] LABS: Ferritin 45 ng/mL (10-122); Insulin 15 uU/mL (2-29); Vitamin D 25-OH Total 34.3 ng/mL (>30)
[2023-09-14 11:01] LABS: Folate 10.2 ng/mL (> or = 4.0); Vitamin B12 626 pg/mL (200-900)
[2023-09-17 01:13] LABS: Zinc 90 mcg/dL (60-130)
[2023-09-20 00:49] LABS: Vitamin A 39 mcg/dL (38-98)
[2023-09-20 18:35] LABS: Vitamin B1 23 nmol/L (8-30)
== END 2023-09-14 09:03 | disposition home or self-care (01) ==
LOC: HO.LAB 09:02
PROVIDERS: PCP Internal Medicine; Visit Provider Surgery
DX: K74.00 Hepatic fibrosis, unspecified (principal); E66.9 Obesity, unspecified; F43.20 Adjustment disorder, unspecified; E55.9 Vitamin D deficiency, unspecified; Z98.84 Bariatric surgery status; Z90.49 Acquired absence of other specified parts of digestive tract
CPT/HCPCS: 36415; 80053; 80061; 82306; 82607; 82728; 82746; 83036; 83525; 83540; 84425; 84443; 84590; 84630; 85025; 86140

== ENCOUNTER 2023-09-20 11:36 | Outpatient (AMB) | payer OTHER, SELFPAY ==
--- NOTE | 2023-09-20 11:37 | MHC.OFFVIS ---
Intake Vital Signs 09/20/23 11:41 Height 5 ft 4 in Weight 168 lb 13.985 oz BMI 29.0 BP 113/58 L Blood Pressure Location Rt brachial Position Sitting Pulse 76 Pulse Source Pulse Oximeter Temp 96.6 F L Temp Source Temporal Artery Scan Pulse Oximetry (%) 100 Oxygen Delivery Method Room Air Intake Visit Reasons: S/P lap alia Allergies No Known Allergies Allergy (Verified 09/06/23 11:10) HPI HPI Comments History of Present Illness Details The patient underwent laparoscopic cholecystectomy on 09/05/2023. The procedure was uneventful and the patient was discharged home. She contacted the office last week and was admitted with elevated LFTs and borderline dilated CBD at 8 mm. Workup included MRCP that was negative for choledocholithiasis, HIDA scan that was negative for a bile leak and CT that demonstrated expected fluid & gas. The patient had a GI evaluation with Dr. Galo and it was felt she passed some sludge/debris and her LFTs improved. She was discharged home last , 09/08 and reports that she is doing well with the exception of feeling foggy and weak. She had undergone sleeve gastrectomy in Feb, 2023 and is due for 6 month labs. We reviewed available labs; some of the multivitamins are currently pending but overall, her labs look good and her total bilirubin, AST and alkaline phosphatase are normal. She is using celebrate rebuild, 2 shakes with good results. The patient is accompanied by her Brian & she gave permission to speak and answer his questions. Patient is having no acute respiratory distress. [facility] Medical History Liver fibrosis Cholelithiasis GERD (gastroesophageal reflux disease) Postoperative nausea Renal calculi BMI 39.0-39.9,adult Back pain Morbid obesity Irritable bowel syndrome with both constipation and diarrhea Rectal bleeding Surgical History Hx laparoscopic cholecystectomy Hx of laparoscopic partial gastrectomy Hx of unilateral salpingectomy Hx of unilateral salpingectomy History of surgery Family History Mother No problems noted. Father No problems noted. Brother Kidney disease Son No problems noted. Son No problems noted. Son No problems noted. Social History (Reviewed 09/20/23 @ 11:41 by Maximilian Graham MD, [facility], [facility]) Household Members: Family Household Members Other:: minor children Housing: House Are you a primary home care coordinator to a significant other at home: Yes (minor children) Do you presently have visiting nurse or other home services: No Alcohol intake: never Comment: NOT INDICATED Patient Tobacco Use Status: Never used Tobacco service: No Review of Systems Const All systems reviewed & are unremarkable except as noted in HPI and below Reports as per HPI Results Reviewed Results Reviewed: Labs today show a normal total bilirubin is 0.8 down from admitting 3.3, alkaline phosphatase is normal at 116 which is down from hospitalization Patient's AST is slightly elevated at 40 but still down from admission ALT is down to 108 Patient's hemoglobin is normal at 13.6 with normal chromic/normocytic indices, platelet count 156 K, white blood cell count slightly elevated 11.1 BUN is 8, creatinine 0.82, lytes within normal parameters Pathology demonstrating chronic calculous cholecystitis with no evidence of neoplasm or atypia is noted. Assessment & Plan Assessment & Plan (1) S/P laparoscopic cholecystectomy: Code(s): Z90.49 - Acquired absence of other specified parts of digestive tract (2) Liver fibrosis: Code(s): K74.00 - Hepatic fibrosis, unspecified (3) S/P laparoscopic sleeve gastrectomy: Code(s): Z98.84 - Bariatric surgery status (4) Obesity: Code(s): E66.9 - Obesity, unspecified (5) Vitamin D deficiency: Code(s): E55.9 - Vitamin D deficiency, unspecified (6) Adjustment disorder, unspecified: Code(s): F43.20 - Adjustment disorder, unspecified Plan Instructions regarding diet and activity reviewed and apparently understood. Patient will use some nail [place] remover on the adhesive that is on her abdomen. There is still some outstanding a 6 month bariatric labs, but she was reassured that these overall looked good. Her ALT is still a little elevated at 70 which is likely secondary to NAFLD, but as she continues to lose weight, she will likely have this normalize. If she has return of any symptoms or problems she will contact me/the bariatric program report to the nearest emergency room. Patient has significant redundant skin following her successful weight loss. She may require assessment for panniculectomy and I have made arrangements for her to see Inocencio Coronel PA-C in 6 months and she will reach out to him sooner if she has any clinical concerns regarding her panniculus. Work note allowing her to return to work 09/26 on light duty and unable to lift more than 20 lb for medical reasons until 10/11/2023 was provided. Coding Level of Care Code Global (84708) Diagnoses S/P laparoscopic cholecystectomy Z90.49 Liver fibrosis K74.00 S/P laparoscopic sleeve gastrectomy Z98.84 Obesity E66.9 Vitamin D deficiency E55.9 Adjustment disorder, unspecified F43.20
[2023-09-20 11:41] VITALS: BP 113/58; PULSE 76; TEMP 35.9; O2SAT 100; BMI 29.0
== END 2023-09-20 12:05 | disposition home or self-care (01) ==
PROVIDERS: PCP Internal Medicine; Visit Provider Surgery
DX: Z90.49 Acquired absence of other specified parts of digestive tract (principal); K74.00 Hepatic fibrosis, unspecified; Z98.84 Bariatric surgery status; E66.9 Obesity, unspecified; E55.9 Vitamin D deficiency, unspecified; F43.20 Adjustment disorder, unspecified
CPT/HCPCS: 99024

== ENCOUNTER → 2023-09-20 11:36 | Outpatient (BNVA) | payer OTHER, SELFPAY | PROVIDERS: PCP Internal Medicine; Visit Provider Surgery | DX: Z90.49 Acquired absence of other specified parts of digestive tract (principal); K74.00 Hepatic fibrosis, unspecified; E66.9 Obesity, unspecified; E55.9 Vitamin D deficiency, unspecified; F43.20 Adjustment disorder, unspecified; Z98.84 Bariatric surgery status; Z68.29 Body mass index [BMI] 29.0-29.9, adult | CPT/HCPCS: 99212 ==

== ENCOUNTER 2023-11-08 15:33 | Outpatient (AMB) | payer OTHER, SELFPAY ==
--- NOTE | 2023-11-08 15:37 | MHC.OFFVISWM ---
Intake VS Expanded 11/08/23 15:52 BP 113/68 Blood Pressure Location Rt brachial Blood Pressure Position Sitting Pulse 75 Pulse Source Pulse Oximeter Temp 97.3 F Temperature Source Tympanic Pulse Oximetry 100 Oxygen Delivery Method Room Air Height 5 ft 4 in Weight 163 lb 9.6 oz BMI 28.1 Body Fat % 38.7 Body Fat Mass 72.0 Fat Free Mass 100.4 Visceral Fat Rating 6.0 Body Water % 44.1 Body Water Mass 72.0 Muscle Mass/Score 95.2 Basal Metabolic Rate/Score 1,414 Intake Visit Reasons: (OV) PO LSG 02/15/23 Infertility Nurse Required: No Allergies No Known Allergies Allergy (Verified 09/06/23 11:10) Medication List - Last Reconciled 11/08/23 by PIERO Rodriguez multivitamin 1 tab PO DAILY pantoprazole 40 mg PO DAILY 90 days HPI HPI Comments History of Present Illness Details At patient is a pleasant 33-year-old female who returns to the office today in follow-up. She is 8 months post laparoscopic sleeve gastrectomy performed on 02/15/2023 and laparoscopic cholecystectomy performed on 09/05/2023. Weight today 163.6 lb with a BMI of 28.1. She states that she is doing very well overall and has not had any significant gastrointestinal problems except once when she had whole milk which did not make her stomach feel very well. Since then she has not had any difficulties. Over the last 4 months, she has fostered 2 children in an emergency situation, 1 of her children had hand, foot, mouth disease and RSV. She herself had RSV and COVID. States goal is 145 pounds Meal plan: Celebrate rebuild 2 scoops in 8 oz unswetened coconut or almond milk ZP bar or skip meal 8 forks protein and 8 forks veg and 4 forks of potatoe Drinking 48 oz water Exercise: nothing formal treadmill and bike at home PFSH Medical History Liver fibrosis Cholelithiasis GERD (gastroesophageal reflux disease) Postoperative nausea Renal calculi BMI 39.0-39.9,adult Back pain Morbid obesity Irritable bowel syndrome with both constipation and diarrhea Rectal bleeding Surgical History Hx laparoscopic cholecystectomy Hx of laparoscopic partial gastrectomy Hx of unilateral salpingectomy Hx of unilateral salpingectomy History of surgery Family History Mother No problems noted. Father No problems noted. Brother Kidney disease Son No problems noted. Son No problems noted. Son No problems noted. Social History Household Members: Family Household Members Other:: minor children Housing: House Are you a primary resident care aide to a significant other at home: Yes (minor children) Do you presently have visiting nurse or other home services: No Alcohol intake: never Comment: NOT INDICATED Patient Tobacco Use Status: Never used Tobacco service: No Review of Systems Const All systems reviewed & are unremarkable except as noted in HPI and below Physical Exam Const General: healthy appearing and no acute distress Resp Effort & Inspection: normal respiratory effort Auscultation: clear to auscultation bilaterally Cardio Rate: regular rate Rhythm: regular rhythm GI Auscultation: normal bowel sounds Extrem General: Yes normal to inspection Assessment & Plan Assessment & Plan (1) Overweight (BMI 25.0-29.9): Code(s): E66.3 - Overweight Plan: To help her achieve her goal, recommend changing her meal plan to 1 scoop of celebrate rebuild, zone perfect bar or Camb[place]ian yogurt, meal with 8 forks of protein in 8 forks of salad or vegetables. Recommend increasing exercise using treadmill 1 day, bike 1 day, home videos x2 days and yoga x1 day. Goal is ultimately to burn 2000 calories per week but starting with something will be helpful. Return to office 1 month. Coding Level of Care Code Est Pt Level 3 (40866) Diagnoses Overweight (BMI 25.0-29.9) E66.3
[2023-11-08 15:52] VITALS: BP 113/68; PULSE 75; TEMP 36.3; O2SAT 100; BMI 28.1
== END 2023-11-08 16:12 | disposition home or self-care (01) ==
PROVIDERS: PCP Physician Assistant Surgical; Visit Provider Physician Assistant Surgical
DX: E66.3 Overweight (principal); Z68.28 Body mass index [BMI] 28.0-28.9, adult; Z90.3 Acquired absence of stomach [part of]; Z90.49 Acquired absence of other specified parts of digestive tract
CPT/HCPCS: 99024

== ENCOUNTER → 2023-11-08 15:33 | Outpatient (BNVA) | payer OTHER, SELFPAY | PROVIDERS: PCP Physician Assistant Surgical; Visit Provider Physician Assistant Surgical | DX: E66.3 Overweight (principal); Z68.28 Body mass index [BMI] 28.0-28.9, adult; Z98.84 Bariatric surgery status; Z90.3 Acquired absence of stomach [part of] | CPT/HCPCS: 99212 ==

== ENCOUNTER 2023-11-15 00:10 | Emergency (ER) | payer OTHER, SELFPAY ==
--- NOTE | 2023-11-15 | ECG_ITS ---
Test Reason : CP Blood Pressure : / mmHG Vent. Rate : 071 BPM Atrial Rate : 071 BPM P-R Int : 170 ms QRS Dur : 076 ms QT Int : 374 ms P-R-T Axes : 063 047 047 degrees QTc Int : 406 ms Normal sinus rhythm with sinus arrhythmia Normal ECG When compared with ECG of 30-JUN-2022 20:58, No significant change was found Referred By: Generic ED Physician Electronically Signed By:KARYN ABEL
[2023-11-15 00:16] VITALS: BP 108/47; BP 129/81; PULSE 75; PULSE 76; RESP 19; TEMP 36.6; O2SAT 97; BMI 29.4
--- NOTE | 2023-11-15 00:23 | MHC.EDTECH ---
Patient came in by ambulance,changed into hospital attire, vitals done, EKG taken per order and signed by provider,Call cooper in reach
[2023-11-15 00:38] LABS: MANUAL DIFF FLAG NO
[2023-11-15 00:40] LABS: Basophils Percent Auto 0.3 % (0-2); Eosinophils Absolute Auto 0.2 X10*3/uL (0.0-0.4); Eosinophils Percent Auto 2.3 % (0-4); Hematocrit 35.7 % (37.0-47.0); Hemoglobin 12.2 g/dl (12.0-16.0); Imm Gran Abs Auto 0.01 X10*3/uL (0.00-0.03); Imm Gran Pct Auto 0.1 % (0.0-0.4); Lymphocytes Absolute Auto 3.8 X10*3/uL (1.2-4.9); Lymphocytes Percent Auto 52.7 % (20-40); Mean Corpuscular HGB Conc 34.2 g/dl (31.0-35.0); Mean Corpuscular Hemoglobin 30.3 pg (27.0-33.0); Mean Corpuscular Volume 88.8 fL (80.0-98.0); Monocytes Absolute Auto 0.6 X10*3/uL (0.1-1.2); Monocytes Percent Auto 8.6 % (2-11); Neutrophils Absolute Auto 2.6 x10*3/uL (2.0-8.3); Platelet Count 209 X10*3/uL (160-400); Red Blood Count 4.02 X10*6/uL (4.20-5.50); Red Cell Distribution Width 11.4 % (11.0-16.0); White Blood Count 7.3 X10*3/uL (4.8-10.8)
[2023-11-15 01:01] LABS: Alanine Aminotransferase 20 U/L (0-31); Albumin Level 3.6 g/dL (3.5-5.0); Alkaline Phosphatase 73 U/L (39-117); Anion Gap 12 (12-20); Aspartate Amino Transferase 35 U/L (5-31); Bilirubin Total 0.3 mg/dL (0.0-1.0); Blood Urea Nitrogen 15 mg/dL (9-16); Carbon Dioxide 24 mmol/L (22-29); Chloride 109 mmol/L (96-108); Creatinine Clr Calc Pharmacy 96.9; Estimated Glomerular Filt Rate > 60; Glucose Random 104 mg/dL (60-115); HCG Quantitative < 2 mIU/mL; Lipase 47 U/L (8-78); Sodium 141 mmol/L (135-145); Total Protein 7.7 g/dL (6.5-8.0); Troponin-I High Sensitivity < 2.7 ng/L (<3.5-17.0)
--- NOTE | 2023-11-15 01:32 | ED.CHESTPAIN ---
HPI - Chest Pain General Chief Complaint: Chest Pain Stated Complaint: cp Time Seen by Provider: 11/15/23 01:32 History of Present Illness HPI narrative: The patient is a 33-year-old female who had a cholecystectomy a little over 2 months ago on September 05. Additionally last year in February she had bariatric surgery. This evening the patient was having some dental pain for which she took a morphine tablet left over from her gallbladder surgery. She then went to bed. No long as she got into bed she developed chest pain or upper abdominal pain radiating to her back and she felt short of breath. At 1st she thought this might be similar to symptoms she had with her gallbladder. Because she felt so unwell she asked her to call an ambulance and she was brought to the hospital. She says she does not remember her gallbladder symptoms including any sense of difficulty breathing however. No fever, sweats, chills. No cough or sputum. She did have nausea and vomiting. While waiting in the emergency room to be seen she says that her pain has become less sharp and more pressure-like. She no longer feels any sense of breathing symptoms. No pain or swelling in her legs. Related Data Home Medications Medication Instructions Recorded Confirmed multivitamin 1 tab PO DAILY 09/06/23 11/08/23 Previous Rx's Medication Instructions Recorded pantoprazole 40 mg tablet,delayed 40 mg PO DAILY 90 days #90 tabs 03/02/23 release Allergies Allergy/AdvReac Type Severity Reaction Status Date / Time No Known Allergies Allergy Verified 09/06/23 11:10 Review of Systems Review of Systems: Yes all other systems are reviewed and are negative [facility] Past Medical History Medical History Liver fibrosis Cholelithiasis GERD (gastroesophageal reflux disease) Postoperative nausea Renal calculi BMI 39.0-39.9,adult Back pain Morbid obesity Irritable bowel syndrome with both constipation and diarrhea Rectal bleeding Surgical History Hx laparoscopic cholecystectomy Hx of laparoscopic partial gastrectomy Hx of unilateral salpingectomy Hx of unilateral salpingectomy History of surgery Family History Family History Mother No problems noted. Father No problems noted. Brother Kidney disease Son No problems noted. Son No problems noted. Son No problems noted. Social History Social History Household Members: Family Household Members Other:: minor children Housing: House Are you a primary medicare interviewer to a significant other at home: Yes (minor children) Do you presently have visiting nurse or other home services: No Alcohol intake: never Comment: NOT INDICATED Patient Tobacco Use Status: Never used Tobacco Smoked in Last 30 Days: No Advance Directives: No Advance Directives Information Provided: No service: No Physical Exam Vital Signs: Vital Signs: Last Vital Signs Temp 97.8 F 11/15/23 02:23 Pulse 72 11/15/23 02:23 Resp 16 11/15/23 02:23 BP 110/68 11/15/23 02:23 Pulse Ox 99 11/15/23 02:23 O2 Del Method Room Air 11/15/23 02:23 BMI result Body Mass Index 29.4 Const: Other: Patient is awake and alert. She does not appear in obvious distress. HEENT: Other: The face is symmetrical. ?Mucous membranes moist. Eyes: Other: Pupils are round equal, conjunctivae are clear, extraocular movements intact Neck: Other: Moving her neck easily. Resp: Effort & Inspection: normal respiratory effort Auscultation: clear to auscultation bilaterally Cardio: Rate: regular rate Rhythm: regular rhythm Heart sounds: S1 normal heart sound present and S2 normal heart sound present GI: Other: Some mild epigastric tenderness. No remarkable other abdominal tenderness. Negative Negrete's sign. Skin: Other: Skin is dry and unremarkable. Neuro: Other: The patient is awake, alert, pleasant, appropriate, grossly neurologically intact. Extrem: Other: No peripheral edema. No calf swelling or tenderness. No calf asymmetry. Medications Administered Discontinued Medications Generic Name Dose Route Start Last Admin Trade Name Freq PRN Reason Stop Dose Admin Al Hydroxide/Mg Hydroxide 60 ml 11/15/23 01:51 11/15/23 02:00 Magnesium Hydrox/Alum Hydrox 30 Ml Oral.Susp PO 11/15/23 01:52 60 ml ONCE ONE Administration Medical Decision Making Medical Decision Making [facility] Narrative: The patient is a 33-year-old female who presents with epigastric and chest discomfort after she got into bed. She also had nausea and vomiting. She had taken a dose of morphine about half an hour prior to the onset of her symptoms but her symptoms did not begin until she laid down in bed and had been in bed for a little while. The patient has tolerated morphine tablets in the past. She has not had any reactions like this. The patient has a normal EKG. She has no signs of urticaria to suggest an allergic reaction. Clinically she looked well despite her discomfort. Her vital signs were unremarkable. She is PERC negative. Labs are unremarkable. Her white count is 7.3, her hemoglobin is 12.2, her platelet count is 209. She has a lymphocytosis. Troponin is undetectable. LFTs show an AST of 35 but otherwise unremarkable. Lipase is normal. The patient was given a dose of Maalox with improvement in her symptoms. My overall impression is that the patient probably experienced gastroesophageal reflux causing significant chest discomfort. I think that is a more likely explanation for her symptoms than anything else. I do not think she is having an acute coronary syndrome or pulmonary embolism or any complication related to her cholecystectomy 2 months ago. She will be discharged. She will use pantoprazole which she already has at home. She should return if worse. Lab Data 11/15/23 00:34 11/15/23 00:34 Labs: Lab Results 11/15/23 Range/Units 00:34 WBC 7.3 (4.8-10.8) X10*3/uL RBC 4.02 L (4.20-5.50) X10*6/uL Hgb 12.2 (12.0-16.0) g/dl Hct 35.7 L (37.0-47.0) % MCV 88.8 (80.0-98.0) fL MCH 30.3 (27.0-33.0) pg MCHC 34.2 (31.0-35.0) g/dl RDW 11.4 (11.0-16.0) % Plt Count 209 (160-400) X10*3/uL MPV 11.0 (9.4-12.3) fL Immature Gran % (Auto) 0.1 (0.0-0.4) % Neut % (Auto) 36.0 L (45-73) % Lymph % (Auto) 52.7 H (20-40) % [place] % (Auto) 8.6 (2-11) % Eos % (Auto) 2.3 (0-4) % Baso % (Auto) 0.3 (0-2) % Lymph # (Auto) 3.8 (1.2-4.9) X10*3/uL [place] # (Auto) 0.6 (0.1-1.2) X10*3/uL Eos # (Auto) 0.2 (0.0-0.4) X10*3/uL Baso # (Auto) 0.0 (0.0-0.2) X10*3/uL Abs Immat Gran (auto) 0.01 (0.00-0.03) X10*3/uL Absolute Neuts (auto) 2.6 (2.0-8.3) x10*3/uL Absolute Nucleated RBC 0.000 (0.0-0.012) X10*3/uL Nucleated RBC % (auto) 0.0 (0.0-0.2) /100WBC Sodium 141 (135-145) mmol/L Potassium 4.0 (3.3-5.1) mmol/L Chloride 109 H (96-108) mmol/L Carbon Dioxide 24 (22-29) mmol/L Anion Gap 12 (12-20) BUN 15 (9-16) mg/dL Creatinine 0.84 (0.5-1.4) mg/dL Estim Creat Clear Calc 96.9 Estimated GFR > 60 Random Glucose 104 (60-115) mg/dL Calcium 9.0 D (8.4-10.2) mg/dL Total Bilirubin 0.3 (0.0-1.0) mg/dL AST 35 H (5-31) U/L ALT 20 (0-31) U/L Alkaline Phosphatase 73 (39-117) U/L Troponin I High Sens < 2.7 (<3.5-17.0) ng/L Total Protein 7.7 (6.5-8.0) g/dL Albumin 3.6 (3.5-5.0) g/dL Lipase 47 (8-78) U/L Beta HCG, Quant < 2 mIU/mL Independent Interpretation I performed an independent interpretation of an: EKG Interpretation: EKG at 016 shows normal sinus rhythm at 71 beats per minute. It is normal EKG. Discharge Plan Discharge Clinical Impression: Chest pain Patient Disposition: Home, Self-Care Additional Instructions: Your testing in the emergency room today is very reassuring. I think you probably had an episode of acid reflux causing the symptoms you experienced. Taking pantoprazole for the next few days may be reasonable. Use the medication you have at home. Please plan on following up soon with your regular doctor to discuss this episode further. That any point he feels significantly worse, especially if you feel trouble breathing, please return to the emergency department. Prescriptions: No Action pantoprazole 40 mg tablet,delayed release (DR/EC) 40 mg PO DAILY 90 Days Qty: 90 1RF multivitamin Tablet 1 tab PO DAILY Referrals: Mike Quintero MD [Primary Care Provider] - (Chest pain, suspect acid reflux) Stand Alone Forms: Work/School Release Interventions: ED Discharge Assessment Last Done: 11/15/23 02:57 Discharge Date/Time: 11/15/23 02:57
[2023-11-15] MEDS: Magnesium Hydrox/Alum Hydrox 30 ML ORAL.SUSP 60 ML PO (02:00)
[2023-11-15 02:23] VITALS: BP 110/68; PULSE 72; RESP 16; TEMP 36.6; O2SAT 99
== END 2023-11-15 02:57 | disposition home or self-care (01) ==
PROVIDERS: Emergency Provider Emergency Medicine; PCP Internal Medicine
DX: R07.9 Chest pain, unspecified (principal); K08.89 Other specified disorders of teeth and supporting structures; R11.2 Nausea with vomiting, unspecified
CPT/HCPCS: 36415; 80053; 83690; 84484; 84702; 85025; 93005; 99283; 99285

== ENCOUNTER → 2023-11-15 00:16 | Outpatient (BNV) | payer OTHER, SELFPAY | PROVIDERS: Emergency Provider Emergency Medicine; PCP Internal Medicine; Visit Provider Internal Medicine | DX: R07.9 Chest pain, unspecified (principal) | CPT/HCPCS: 93010 ==

== ENCOUNTER 2024-04-30 22:54 | Emergency (ER) | payer OTHER, SELFPAY ==
--- NOTE | 2024-04-30 | ECG_ITS ---
Test Reason : CHEST PAIN Blood Pressure : / mmHG Vent. Rate : 067 BPM Atrial Rate : 067 BPM P-R Int : 154 ms QRS Dur : 074 ms QT Int : 378 ms P-R-T Axes : 045 042 034 degrees QTc Int : 399 ms Normal sinus rhythm with sinus arrhythmia Normal ECG When compared with ECG of 15-NOV-2023 00:16, No significant change was found Referred By: Generic ED Physician Electronically Signed By:KARYN ABEL
[2024-04-30 23:23] VITALS: BP 135/105; PULSE 86; O2SAT 96
[2024-04-30 23:25] VITALS: BP 102/43; PULSE 84; RESP 11; TEMP 36.6; O2SAT 98; BMI 26.8
--- NOTE | 2024-04-30 23:53 | ED_ITS ---
HPI - Chest Pain General Chief Complaint: Chest Pain Stated Complaint: cp s/p taking morphine per ems Time Seen by Provider: 04/30/24 23:53 Source: patient Mode of arrival: ambulatory Limitations: no limitations History of Present Illness ED Provider: kvng BEAUCHAMP narrative: Patient with chronic tooth problems took 15 mg of morphine tablets which was left over from the previous surgery within half an hour of that patient noticed epigastric pain with nausea and vomiting x2 now complaining of pain in epigastric area and the back pain no blood in the vomitus patient has similar episode in the past when she took morphine no chest pain no shortness a breath Related Data Home Medications ?Medication ?Instructions ?Recorded ?Confirmed multivitamin 1 tab PO DAILY 09/06/23 11/08/23 Previous Rx's ?Medication ?Instructions ?Recorded pantoprazole 40 mg tablet,delayed 40 mg PO DAILY 90 days #90 tabs 03/02/23 release ondansetron 4 mg disintegrating 4 mg PO Q6-8H PRN nausea and 05/01/24 tablet vomiting #7 tabs pantoprazole 40 mg tablet,delayed 40 mg PO DAILY #20 tabs 05/01/24 release (Protonix) Allergies Allergy/AdvReac Type Severity Reaction Status Date / Time No Known Allergies Allergy Verified 04/30/24 23:28 Review of Systems 2 Review of Systems: Yes all other systems are reviewed and are negative PMFSH Past Medical History Medical History Liver fibrosis Cholelithiasis GERD (gastroesophageal reflux disease) Postoperative nausea Renal calculi BMI 39.0-39.9,adult Back pain Morbid obesity Irritable bowel syndrome with both constipation and diarrhea Rectal bleeding Surgical History Hx laparoscopic cholecystectomy Hx of laparoscopic partial gastrectomy Hx of unilateral salpingectomy Hx of unilateral salpingectomy History of surgery Family History Family History Mother No problems noted. Father No problems noted. Brother Kidney disease Son No problems noted. Son No problems noted. Son No problems noted. Social History Social History Household Members: Family Household Members Other:: minor children Housing: House Are you a primary geriatric personal care aide to a significant other at home: Yes (minor children) Do you presently have visiting nurse or other home services: No Alcohol intake: never Comment: NOT INDICATED Patient Tobacco Use Status: Never used Tobacco Smoked in Last 30 Days: No Use of substances other than those prescribed or required for medical reasons: No Advance Directives: No Advance Directives Information Provided: Yes service: No Physical Exam 2 Vital Signs: Vital Signs: Last Vital Signs Temp 97.9 F 04/30/24 23:25 Pulse 74 05/01/24 00:50 Resp 16 05/01/24 00:50 BP 111/53 L 05/01/24 00:50 Pulse Ox 97 05/01/24 00:50 O2 Del Method Room Air 05/01/24 00:50 BMI result Body Mass Index 26.8 Appearance: Alert. Oriented X3. No acute distress. Eyes: PERRLA, No Nystagmus ENT: Pharynx normal. Oral Mucosa moist Neck: Normal inspection. Neck supple. CVS: Normal heart rate and rhythm. Pulses normal. Respiratory: No respiratory distress. Equal air entry bilateral, no wheezing/rales/rhonchi Abdomen: Soft and tender in epigastric area. Bowel sounds are present, no mass palpable, no CVA tenderness Skin: Skin warm and dry. Normal skin color. Normal skin turgor. Extremities: No lower extremity edema. No calf tenderness Neuro: Oriented X 3. No motor deficit. Medications Administered Generic Name Dose Route Start Last Admin Trade Name Freq PRN Reason Stop Dose Admin Sodium Chloride 1,000 mls @ 999 mls/hr 05/01/24 01:46 05/01/24 01:54 Ns IV 05/01/24 02:46 999 mls/hr .Q1H1M ONE Administration Discontinued Medications Generic Name Dose Route Start Last Admin Trade Name Freq PRN Reason Stop Dose Admin Al Hydroxide/Mg Hydroxide 30 ml 05/01/24 00:20 05/01/24 00:31 Magnesium Hydrox/Alum Hydrox 30 Ml Oral.Susp PO 05/01/24 00:21 30 ml ONCE ONE Administration Famotidine 20 mg 05/01/24 00:22 05/01/24 00:31 Famotidine/Pf 20 Mg/2 Ml Vial IVPUSH 05/01/24 00:23 20 mg ONCE ONE Administration Lidocaine HCl 15 ml 05/01/24 00:20 05/01/24 00:30 Lidocaine Hcl Viscous 2 % 15 Ml Solution MUCOUS MEM 05/01/24 00:21 15 ml ONCE ONE Administration Ondansetron HCl 4 mg 05/01/24 00:20 05/01/24 00:31 Ondansetron Hcl 4 Mg/2 Ml Vial IVPUSH 05/01/24 00:21 4 mg ONCE ONE Administration Ondansetron HCl 4 mg 05/01/24 01:46 05/01/24 01:55 Ondansetron Hcl 4 Mg/2 Ml Vial IVPUSH 05/01/24 01:47 4 mg ONCE ONE Administration Medical Decision Making Medical Decision Making MDM Narrative: Patient with acute onset of nausea vomiting after taking morphine likely the side effect of morphine history of same in the past patient is status post cholecystectomy lab workup stable lipase normal Differential Diagnosis Differential Diagnoses: The differential diagnosis associated with the presentation includes Acute gastritis/medication side effects/pancreatitis Lab Data [facility] Lab Attestation statement: I reviewed the patient's lab results. 05/01/24 00:49 05/01/24 00:49 Labs: Lab Results 05/01/24 Range/Units 00:49 WBC 10.7 (4.8-10.8) X10*3/uL RBC 3.92 L (4.20-5.50) X10*6/uL Hgb 12.3 (12.0-16.0) g/dl Hct 34.9 L (37.0-47.0) % MCV 89.0 (80.0-98.0) fL MCH 31.4 (27.0-33.0) pg MCHC 35.2 H (31.0-35.0) g/dl RDW 11.5 (11.0-16.0) % Plt Count 185 (160-400) X10*3/uL MPV 10.2 (9.4-12.3) fL Immature Gran % (Auto) 0.4 (0.0-0.4) % Neut % (Auto) 75.7 H (45-73) % Lymph % (Auto) 15.1 L (20-40) % [place] % (Auto) 8.1 (2-11) % Eos % (Auto) 0.5 (0-4) % Baso % (Auto) 0.2 (0-2) % Lymph # (Auto) 1.6 (1.2-4.9) X10*3/uL [place] # (Auto) 0.9 (0.1-1.2) X10*3/uL Eos # (Auto) 0.1 (0.0-0.4) X10*3/uL Baso # (Auto) 0.0 (0.0-0.2) X10*3/uL Abs Immat Gran (auto) 0.04 H (0.00-0.03) X10*3/uL Absolute Neuts (auto) 8.1 (2.0-8.3) x10*3/uL Absolute Nucleated RBC 0.000 (0.0-0.012) X10*3/uL Nucleated RBC % (auto) 0.0 (0.0-0.2) /100WBC Sodium 141 (135-145) mmol/L Potassium 4.5 (3.3-5.1) mmol/L Chloride 107 (96-108) mmol/L Carbon Dioxide 25 (22-29) mmol/L Anion Gap 14 (12-20) BUN 16 (9-16) mg/dL Creatinine 0.85 (0.5-1.4) mg/dL Estim Creat Clear Calc 90.8 Estimated GFR > 60 Random Glucose 110 (60-115) mg/dL Calcium 9.7 D (8.4-10.2) mg/dL Total Bilirubin 0.6 (0.0-1.0) mg/dL AST 87 H (5-31) U/L ALT 40 H (0-31) U/L Alkaline Phosphatase 83 (39-117) U/L Total Protein 7.3 (6.5-8.0) g/dL Albumin 3.8 (3.5-5.0) g/dL Lipase 41 (8-78) U/L Discharge Plan Discharge Clinical Impression: Medication side effects, Gastritis Patient Disposition: Home, Self-Care Instructions: Gastritis (ED), Adverse Drug Reaction (ED) Additional Instructions: Do not take morphine in future as it is causing the vomiting and nausea Take Protonix as prescribed Zofran for nausea Drink plenty of fluids Prescriptions: New pantoprazole [Protonix] 40 mg tablet,delayed release (DR/EC) 40 mg PO DAILY Qty: 20 0RF ondansetron 4 mg tablet,disintegrating 4 mg PO Q6-8H PRN (Reason: nausea and vomiting) Qty: 7 0RF No Action pantoprazole 40 mg tablet,delayed release (DR/EC) 40 mg PO DAILY 90 Days Qty: 90 1RF multivitamin Tablet 1 tab PO DAILY Print Language: Slovenian
[2024-05-01] MEDS: Lidocaine HCl Viscous 2 % 15 ML SOLUTION MUCOUS MEM (00:30)
[2024-05-01] MEDS: Famotidine/PF 20 MG/2 ML VIAL IVPUSH (00:31)
[2024-05-01] MEDS: Magnesium Hydrox/Alum Hydrox 30 ML ORAL.SUSP PO (00:31)
[2024-05-01] MEDS: ondansetron HCL 4 MG/2 ML VIAL IVPUSH ×2 (00:31→01:55)
[2024-05-01 00:50] VITALS: BP 111/53; PULSE 74; RESP 16; O2SAT 97
[2024-05-01 00:55] LABS: MANUAL DIFF FLAG NO
[2024-05-01 00:56] LABS: Basophils Percent Auto 0.2 % (0-2); Eosinophils Absolute Auto 0.1 X10*3/uL (0.0-0.4); Eosinophils Percent Auto 0.5 % (0-4); Hematocrit 34.9 % (37.0-47.0); Hemoglobin 12.3 g/dl (12.0-16.0); Imm Gran Abs Auto 0.04 X10*3/uL (0.00-0.03); Imm Gran Pct Auto 0.4 % (0.0-0.4); Lymphocytes Absolute Auto 1.6 X10*3/uL (1.2-4.9); Lymphocytes Percent Auto 15.1 % (20-40); Mean Corpuscular HGB Conc 35.2 g/dl (31.0-35.0); Mean Corpuscular Hemoglobin 31.4 pg (27.0-33.0); Mean Platelet Volume 10.2 fL (9.4-12.3); Monocytes Absolute Auto 0.9 X10*3/uL (0.1-1.2); Monocytes Percent Auto 8.1 % (2-11); Neutrophils Absolute Auto 8.1 x10*3/uL (2.0-8.3); Neutrophils Percent Auto 75.7 % (45-73); Platelet Count 185 X10*3/uL (160-400); Red Blood Count 3.92 X10*6/uL (4.20-5.50); Red Cell Distribution Width 11.5 % (11.0-16.0); White Blood Count 10.7 X10*3/uL (4.8-10.8)
[2024-05-01 01:10] LABS: Alanine Aminotransferase 40 U/L (0-31); Albumin Level 3.8 g/dL (3.5-5.0); Alkaline Phosphatase 83 U/L (39-117); Anion Gap 14 (12-20); Aspartate Amino Transferase 87 U/L (5-31); Bilirubin Total 0.6 mg/dL (0.0-1.0); Blood Urea Nitrogen 16 mg/dL (9-16); Calcium 9.7 mg/dL (8.4-10.2); Carbon Dioxide 25 mmol/L (22-29); Chloride 107 mmol/L (96-108); Creatinine Clr Calc Pharmacy 90.8; Estimated Glomerular Filt Rate > 60; Glucose Random 110 mg/dL (60-115); Lipase 41 U/L (8-78); Potassium 4.5 mmol/L (3.3-5.1); Sodium 141 mmol/L (135-145); Total Protein 7.3 g/dL (6.5-8.0)
[2024-05-01] MEDS: 0.9 % Sodium Chloride 1,000 ML 999 ML IV (01:54)
[2024-05-01 03:12] VITALS: BP 111/53; PULSE 74; RESP 16; TEMP 36.6; O2SAT 97
== END 2024-05-01 03:45 | disposition home or self-care (01) ==
PROVIDERS: Emergency Provider Internal Medicine
DX: K29.70 Gastritis, unspecified, without bleeding (principal); R07.9 Chest pain, unspecified; T40.2X5A Adverse effect of other opioids, initial encounter; Y92.9 Unspecified place or not applicable
CPT/HCPCS: 36415; 80053; 83690; 85025; 93005; 96361; 96374; 96375; 96376; 99284; 99285; J2405

== ENCOUNTER → 2024-04-30 23:03 | Outpatient (BNV) | payer OTHER, SELFPAY | PROVIDERS: Emergency Provider Internal Medicine; Visit Provider Internal Medicine | DX: R07.9 Chest pain, unspecified (principal) | CPT/HCPCS: 93010 ==

== ENCOUNTER 2025-06-17 13:56 | Outpatient (AMB) | payer OTHER, SELFPAY ==
--- NOTE | 2025-06-17 13:35 | MHC.OFFVISWM ---
VS Expanded 06/17/25 13:38 Height 5 ft 4 in Weight 160 lb BMI 27.5 Intake Visit Reasons: (TV) PO LSG 02/15/23(Consult for Panniculectomy) Allergies No Known Allergies Allergy (Verified 04/30/24 23:28) Medication List - Last Reconciled 06/17/25 by PIERO Lomas clotrimazole 1% 1 appl topical BID multivitamin 1 tab PO DAILY pantoprazole (Protonix) 40 mg PO DAILY HPI Comments Details: 35-year-old female who returns today in follow-up. She is status post laparoscopic sleeve gastrectomy performed on 02/15/2023 and laparoscopic cholecystectomy performed on 09/05/2023. Weight today 163.6 lb with a BMI of 28.1. She notes she had her teeth removed about 2 weeks ago. Her lost his job so she is struggling to get adequate protein due to finances. Meal plan: 1 scoop of celebrate rebuild, zone perfect bar or Kyrgyz yogurt, meal with 8 forks of protein in 8 forks of salad or vegetables. Exercise: has arthritis in knees, bothersome treadmill and bike at home Pt reports she is dealing with excess skin of abdomen. She has experienced painful, itchy and burning rashes in skin folds. She had previously called the office and requested help so was prescribed clotrimazole ointment. This helped but only minimally. She has to wash frequently otherwise will develop moisture in skin folds. Skin moves around or flaps around during normal daily movement including walking which is very uncomfortable. She finds it difficult to squat down or bend over without discomfort due to skin getting in the way, getting pinched or squished. [facility], [facility] Medical History Liver fibrosis Cholelithiasis GERD (gastroesophageal reflux disease) Postoperative nausea Renal calculi BMI 39.0-39.9,adult Back pain Morbid obesity Irritable bowel syndrome with both constipation and diarrhea Rectal bleeding Surgical History Hx laparoscopic cholecystectomy Hx of laparoscopic partial gastrectomy Hx of unilateral salpingectomy Hx of unilateral salpingectomy History of surgery Family History Mother No problems noted. Father No problems noted. Brother Kidney disease Son No problems noted. Son No problems noted. Son No problems noted. Social History Household Members: Family Household Members Other:: minor children Housing: House Are you a primary menagerie caretaker to a significant other at home: Yes (minor children) Do you presently have visiting nurse or other home services: No Alcohol intake: never Comment: NOT INDICATED Patient Tobacco Use Status: Never used Tobacco service: No Telehealth Telehealth Telehealth Platform: Telephone Location of provider rendering services: other Location of patient: address on file Patient Identification confirmed using: Name, : Yes Telehealth method: voice only Patient verbally consented to treatment: Yes Patient verbally consented to billing insurance company: Yes Patient informed of any privacy concerns related to visit: Yes Minutes spent on Phone/Video with Pt.: 18 Assessment & Plan Assessment & Plan (1) S/P laparoscopic sleeve gastrectomy: Code(s): Z98.84 - Bariatric surgery status Category: Surgical (2) Overweight (BMI 25.0-29.9): Code(s): E66.3 - Overweight Category: Medical (3) Excess skin: Code(s): L98.7 - Excessive and redundant skin and subcutaneous tissue Category: Medical Plan Pt is not following a structured meal plan. Texted her [employer] sid download info and encouraged her to follow a plan from sid. Also sent list of protein shakes available under SNAP. Encouraged her to resume exercise on bike (least painful on knees) with goal of burning 2000 criselda/week. Labs ordered. Continue clotrimazole ointment for rashes of excess skin. Goal 157lbs for BMI < 27. RTC in Sep for in person visit for physical exam and possible photos (30min visit) Pt aware she can text me if she reaches goal sooner and we can try to get her in sooner. Orders: Orders Insulin Today Z84 - Bariatric surgery status TSH reflex Free T4 Today Z - Bariatric surgery status Vitamin A Today Z84 - Bariatric surgery status Vitamin B1 Today Z84 - Bariatric surgery status Comprehensive Met. Panel Today - Bariatric surgery status Vitamin B12 and Folate Today - Bariatric surgery status Zinc Today Z98.84 - Bariatric surgery status Complete Blood Count Auto Diff Today Z98.84 - Bariatric surgery status Hemoglobin A1c Today Z98.84 - Bariatric surgery status Vitamin D 25-OH Total Today Z98.84 - Bariatric surgery status Ferritin Today Z98.84 - Bariatric surgery status C Reactive Protein Today Z98.84 - Bariatric surgery status IRON PROFILE Today Z98.84 - Bariatric surgery status Lipid Panel Today Z98.84 - Bariatric surgery status
[2025-06-17 13:38] VITALS: BMI 27.5
--- OUTSIDE RECORDS SUMMARY | 2025-06-17 16:18 | XMS_ITS | Encounter Summary ---
Author Organization [facility] Address [address] [place] [address] Phone Care Team Providers Care Hot Header Operator Name Role Phone Unavailable Primary Care Provider Unavailabl e Encounter Details Date Type Department Care Team (Late st Contact Info) Description 05/26/2017 Conversion Encounter [facility] - [address] [id number] Social History Tobacco Use Types Packs/Day Years Used Date Smoking Tobacco: Never Assessed Comments Unknown Sex and Gender Information Value Date Recorded Sex Assigned at Not on file Legal Sex Female 4:40 PM EDT Gender Identity Not on file Sexual Orientation Not on file documented as of this encounter Plan of Treatment Not on file documented as of this encounter Visit Diagnoses Not on filedocumented in this encounter
--- OUTSIDE RECORDS SUMMARY | 2025-06-17 16:18 | XMS_ITS ---
Author Name [facility] Organization Unknown Care Team Organization Name Specialty Phone Email Start Date End Da te [facility] Mike Quintero Primary Care 12/15/202205/10 [facility] NULL Primary Care 08/17/2022 05/28/2024
--- OUTSIDE RECORDS SUMMARY | 2025-06-17 16:18 | XMS_ITS | Clinical Summary ---
Author Organization [facility] Address [address] [place] [id number] Phone Care Team Providers Care Rod Drawer Name Role Phone Unavailable Primary Care Provider Unavailabl e Immunizations Immunization Administration Dates Next Due DTP 02/14/1996, 3,1991,08/17,1991 HPV, Quadrivalent 01/13/2009,04/26/2007 Hep B, ped/adol 01/15/2003, 6,02/14/1996,03/24 Hib (PRP-T) 08/20/1992, 2,1991,06/15 IPV 1991 MMR 03/24/1995,08/20/1992 Meningococcal Conj (Menactra) MCV4P 04/26/2007 OPV 02/14/1996,01/07/1993,1991 Td (adult) (MBL), 2 Lf tetan us toxoid, PF, adsorbed 01/15/2003 Tdap 01/13/2009 Family History Relation Name Status Comments Brother Alive Brother: Alive and well Mother Alive Mother: Alive a nd well Social History Tobacco Use Types Packs/Day Years Used Date Smoking Tobacco: Never Assessed Comments Unknown Sex and Gender Information Value Date Recorded Sex Assigned at Not on file Legal Sex Female 4:40 PM EDT Gender Identity Not on file Sexual Orientation Not on file Plan of Treatment Health Maintenance Due Date Last Done Comments Varicella Vaccines (1 of 2 - 13+ 2-dose series) 2004 HPV Vaccines (3 - 3-dose series) 04/07/2009 01/13/2009, 04/26/2007 DTaP,Tdap,and Td Vaccines (7 - Td or Tdap) 01/13/2019 01/13/2009, 01/15/2003, 02/14/1996, Additional history exists Influenza Vaccines (#1) 2025 COVID-19 Vaccine ( season) 2025 HIB Vaccines Completed 08/20/1992, 10/10, 1991, Additional history exists MMR Vaccines Completed 03/24/1995, 08/20/1992 IPV Vaccines Completed 02/14/1996, 12/10, 1991, Additional history exists Hepatitis B Vaccines Completed 01/15/2003, 03/29/1996, 02/14/1996, Additional history exists Meningococcal Vaccine Completed 04/26/2007 Hepatitis A Vaccines Aged Out No long er eligible based on patient's age to complete this topic Men B Vaccine Aged Out No longer elig ible based on patient's age to complete this topic Pneumococcal Vaccine Aged Out No long er eligible based on patient's age to complete this topic
--- OUTSIDE RECORDS SUMMARY | 2025-06-17 16:19 | XMS_ITS | Clinical Summary ---
Author Organization [facility] [address] [place] [address] Address [address] [place] [address] Phone Care Team Providers Care Lining Caser Name Role Phone Mike Quintero MD Primary Care Provider [phone] Allergies Active Allergy Reactions Criticality Noted Date Comments Other 05/12/2017 Seasonal Allergies Medications acyclovir (ZOVIRAX) 200 mg capsule Take by mouth 5 times daily. Active estradioL (ESTRACE) 0.01 % (0.1 mg/gram) vaginal cream APPLY 0.5 GRAMS VAGINALLY NIGHTLY FOR TWO WEEKS THEN TWICE A WEEK 4 Active pantoprazole (PROTONIX) 20 mg EC tablet Take 1 tablet (20 mg total) by mouth 1 (one) time each day. Active albuterol HFA (PROAIR HFA ; PROVENTIL HFA ; VENTOLIN HFA) 90 mcg/actuation inhaler Inhale 2 Puffs into the lungs every 4 hours as needed for Cough or Wheezing. 3 Active nystatin (MYCOSTATIN) 100,000 unit/gram powder APPLY TO AFFECTED AREA 3 TIMES A DAY as needed. 2 Active fluticasone propionate (FLONASE) 50 mcg/actuation nasal sprayIndications :Acute frontal sinusitis, unspecified,Coug h, unspecified TWO SPRAYS IN EACH NOSTRIL ONCE A DAY NEEDED 16 mL 5 Active acetaminophen (Tylenol 8 Hour) 650 mg 8 hr tablet Take 1 tablet (650 mg total) by mouth every 8 (eight) hours if needed for mild pain. Do not crush, chew, or split. 90 tablet 1 5 Active valACYclovir (VALTREX) 500 mg tablet TAKE 1 TABLET BY MOUTH TWICE A DAY FOR 3 DAYS 6 tablet 2 5 Active Active Problems Problem Noted Date Diagnosed Date Gastroesophageal reflux disease without esophagi tis 09/16/2023 Mild intermittent asthma without complication Seasonal allergic rhinitis 03/15/2019 Obesity (BMI 30-39.9) 01/12/2019 Pendulous breast 01/12/2019 Encounters Date Type Department Care Team Description 04/23/2025 1:15 PM EDT Treatment [facility] [address] [place] [phone] Fredy Moya COTA/Chun Bilateral hand pain (Primary Dx); Bilateral carpal tunnel syndrome 04/17/2025 2:00 PM EDT Treatment [facility] [address] [phone] Fredy Moya COTA/Chun Bilateral hand pain (Primary Dx); Bilateral carpal tunnel syndrome 04/09/2025 1:00 PM EDT Evaluation [facility] [address] [place] [phone] Riki Jeffrey OT Bilateral hand pain; Bilateral carpal tunnel syndrome 04/09/2025 Plan of Care Documentation [facility] [address] [phone] 03/28/2025 11:15 AM EDT Office Visit Adult Medicine [address] [phone] Nelda Aranda PA Bilateral hand pain (Primary Dx); Bilateral carpal tunnel syndrome from Last 3 Months Immunizations Name Administration Dates Next Due Influenza trivalent, 0.5mL, preservative free (Fluarix; FluLaval; Fluzone) ages 6mo and older (Afluria) 3 years and older 10/28/2010 Influenza trivalent, with pr eservative (Fluzone; Afluria) 6mo and older 12/19/2021 PPD Test 06/15/2017 Pneumococcal conjugate 20 va lent (Prevnar 20, PCV 20) 2mo and older 12/28/2023 Tdap Tetanus diptheria acell ular pertussis (Boostrix; Adacel) 7yo and older 09/29/2021,05/12/2017 Surgical History Surgery Date Site/Laterality Comments OTHER SURGICAL HISTORY PROCEDURE: WI UNLISTED PROCEDURE PELVIS/HIP JOINT; COMMENT: dislocated both hips while roller skating as a child OTHER SURGICAL HISTORY 11/17/2020 Left PROCEDURE: [place] LAPAROSCOPY SALPINGOSTOMY; COMMENT: Dr. Estrada, [facility] TUBAL LIGATION 05/21/2022 Right PROCEDURE: HISTORICAL TUBAL LIGATION; COMMENT: Dr. Estrada [facility] Medical History Medical History Date Comments Obesity (BMI 30-39.9) 01/12/2019 DX:Obesity (BMI 30-39.9) Pendulous breast 01/12/2019 DX:Pendulous br east Seasonal allergic rhinitis 03/15/2019 DX:Se asonal allergic rhinitis Intermittent asthma 07/07/2020 DX:Intermitt ent asthma HSV-2 infection DX:HSV-2 infecti on Family History Medical History Relation Name Comments No Known Problems Brother No Known Problems Father Diabetes Maternal Grandfather Diabetes Maternal Grandmother No Known Problems Mother Arthritis Mother's side No Known Problems Son 1 No Known Problems Son 2 No Known Problems Son 3 Breast cancer Neg Hx Cancer of Small Bowel Neg Hx Colon cancer Neg Hx Heart attack Neg Hx Kidney cancer Neg Hx Ovarian cancer Neg Hx Pancreatic cancer Neg Hx Stroke Neg Hx Uterine cancer Neg Hx Relation Name Status Comments Brother Alive x1 full Father Alive Maternal Grandfather Maternal Grandmother Mother Alive Mother's side Alive Paternal Grandfather Paternal Grandmother Son 1 Alive Son 2 Alive Son 3 Alive Social History Tobacco Use Types Packs/Day Years Used Date Smoking Tobacco: Never Smokeless Tobacco: Never Tobacco Cessation:Counseling Given: Not Answered Alcohol Use Standard Drinks/Week Comments No 0 (1 standard drink = 0.6 oz pur e alcohol) Housing Instability Answer Date Recorde d Are you worried that in the next 2 months you may not have stable housing? Patient declined 03/27/2025 Food Access & Nutrition Answer Date Rec orded Do you have access to a vari ety of food including fruits and vegetables? Patient declined 03/27/2025 Health Literacy Answer Date Recorded How often do you need to hav e someone help you when you read instructions, pamphlets, or other written material from your doctor or pharmacy? Never 03/27/2025 Caregiver: How often do you need to have someone help you when you read instructions, pamphlets, or other written material from your doctor or pharmacy? Not on file 03/27/2025 Financial Risk Answer Date Recorded How hard is it for you to pa y for the very basics like food, housing, medical care, and air conditioning / heating? Patient declined 03/27/2025 Transportation Answer Date Recorded Has the lack of transportati on kept you from meetings, work, or from getting things needed for daily living? Patient declined 03/27/2025 Has the lack of transportati on kept you from medical appointments or from getting medications? Patient declined 03/27/2025 Social Isolation Answer Date Recorded How often do you feel lonely or isolated from th ose around you? Never 03/27/2025 Food Risk Answer Date Recorded Within the past 12 months we worried whether our food would run out before we got money to buy more. Patient declined 025 Within the past 12 months th e food we bought just didn't last and we didn't have money to get more. Patient declined 03/10 Dependent Care Answer Date Recorded Do you need help finding or paying for care for your loved ones. For example, child nutrition assistant or elderly care for an older adult? Patient declined 03/27/2025 Education Answer Date Recorded Do you think completing more education or training, like finishing a GED, going to college, or learning a trade, would be helpful for you? Patient declined 03/27/2025 Employment and Income Answer Date Recor ded During the last four weeks, have you been actively looking for work? Patient declined 03/27/2025 Living Situation Answer Date Recorded What is your living situation? 0 03/27/2025 Comments No Sex and Gender Information Value Date Recorded Sex Assigned at Female 03/28/2025 11:19 AM EDT Legal Sex Female 3:32 PM EST Gender Identity Female 03/28/2025 11:19 AM EDT Sexual Orientation Straight 03/28/2025 11 :19 AM EDT Obstetrics History Last Filed Vital Signs Vital Sign Reading Time Taken Comments Blood Pressure 98/58 03/28/2025 11:03 AM EDT Pulse 66 03/28/2025 11:03 AM EDT Temperature 36.9 C (98.5 F) 03/28/2025 11:03 AM EDT Respiratory Rate 14 03/28/2025 11:03 AM EDT Oxygen Saturation - - Inhaled Oxygen Concentration - - Weight 73.9 kg (163 lb) 03/28/2025 11:03 AM EDT Height 162.6 cm (5' 4 ) 03/28/2025 11:03 AM EDT Body Mass Index 27.98 03/28/2025 11:03 AM EDT Plan of Treatment Health Maintenance Due Date Last Done Comments HPV Vaccines (3 - 3-dose series) 04/07/2009 01/13/2009, 04/26/2007 Cervical Cancer Screening: Pap Smear 03/19/2024 03/19/2021 COVID-19 Vaccine ( season) 2025 01/26/2021, 01/03/2021 Influenza Vaccine (#1) 2025 , 09/06/2023, 12/19/2021, Additional history exists Social Influencers of Health Screening 03/27/2026 03/27/2025 Cholesterol Screening (Lipid Panel) 09/10/2027 09/10/2022 DTaP,Tdap,and Td Vaccines (10 - Td or Tdap) 09/29/2031 09/29/2021, 05/12/2017, 01/13/2009, Additional history exists HIB Vaccines Completed 08/20/1992, 10/10, 1991, Additional history exists MMR Vaccines Completed 03/24/1995, 08/20/1992 IPV Vaccines Completed 02/14/1996, 12/10, 1991, Additional history exists Hepatitis B Vaccines Completed 01/15/2003, 03/29/1996, 02/14/1996, Additional history exists Meningococcal ACWY Vaccine Completed 04/26/2007 HIV Screening Completed 12/22/2012 Hepatitis C Screening Completed 05/13/2017 Pneumococcal Vaccine: Pediatrics (0 to 5 Years) and At-Risk Patients (6 to 49 Years) Completed 12/28/2023 Depression Screening Completed 03/27/2025, 12/28/19 24 Hepatitis A Vaccines Aged Out No long er eligible based on patient's age to complete this topic Meningococcal B Vaccine Aged Out No l onger eligible based on patient's age to complete this topic RSV Immunization Patients Under 20 months Aged Out No longer eligible based on patient's age to complete this topic Varicella Vaccines Aged Out No longer eligible based on patient's age to complete this topic Goals Goal Patient Goal Type Associated Problems Recent Progress Patient-Stated? Author Pt goal General Yes Riki Jeffrey, OT Note: Less pain, more strength in B hands LTG 4-6 visits General No Riki Jeffrey, OT Note: Pt will reports pain in B hands <= 5/10 with activity Pt will verbalize 2 methods of joint protection Pt will perform HEP MOD I Procedures Procedure Name Priority Date/Time Associated Diagnosis Comments RHEUMATOID FACTOR Routine 03/28/2025 11: 25 AM EDT Bilateral hand pain URIC ACID Routine 03/28/2025 11:25 AM EDT Bilateral hand pain BORRELIA BURGDORFERI ANTIBODY Routine 03/28/2025 11:25 AM EDT Bilateral hand pain IFA WITH TITER AND PATTERN Routine 03/28/2025 11:25 AM EDT Bilateral hand pain SEDIMENTATION RATE Routine 03/28/2025 11 :25 AM EDT Bilateral hand pain DEPRESSION SCREENING Routine 12/28/2023 LIPID PANEL Routine 09/10/2022 HM PAP SMEAR Routine 03/19/2021 HEPATITIS C SCREENING Routine 05/13/2017 HIV SCREENING Routine 12/22/2012 from Last 3 Months or Most Recently Relevant to Health Maintenance Results * IFA with titer and pattern (03/28/2025 11:25 AM EDT) Negative Negative 03/29/2025 2:12 PM EDT [facility] Blood Venous blood specimen / Unknown Venipuncture / Unknown 03/28/2025 11:25 AM EDT 03/28/2025 11:25 AM EDT [facility] [place] [facility] BLOOD ORDERABLES Fin al Result Performing Organization Address [facility] de Phone Number [facility] [address] [place] [address], * Borrelia burgdorferi antibody (03/28/2025 11:25 AM EDT) [facility] Lyme Ab Negative Negative LAB CHEMISTRY METHOD 03/29/2025 10:30 AM EDT [facility] Comment: No laboratory evidence of infection with B. burgdorferi (Lyme disease). Negative results may occur in patients recently infected (<=14 days) with B. burgdorferi. If recent infection is suspected, repeat testing on a new sample collected in 7- 14 days is recommended. Blood Venous blood specimen / Unknown Venipuncture / Unknown 03/28/2025 11:25 AM EDT 03/28/2025 11:25 AM EDT [facility] Awa HARRY LAB BLOOD ORDERABLES Fin al Result Performing Organization Address [facility] de Phone Number [facility] [address] [place] [address], * Sedimentation rate (03/28/2025 11:25 AM EDT) [facility] Sed Rate 5 0 - 20 mm/hr LAB HEMETOLOGY METHOD 03/28/2025 3:20 PM EDT [facility] Blood Venous blood specimen / Unknown Venipuncture / Unknown 03/28/2025 11:25 AM EDT 03/28/2025 11:25 AM EDT Nelda HARRY LAB BLOOD ORDERABLES Fin al Result Performing Organization Address City/[facility]/ZIP Co de Phone Number [facility] [address] [place] [address], [place] [phone] * Rheumatoid factor (03/28/2025 11:25 AM EDT) Rheumatoid Factor <10.0 <15.0 I Unit/mL LAB CHEMISTRY METHOD 03/28/2025 3:44 PM EDT [facility] Blood Venous blood specimen / Unknown Venipuncture / Unknown 03/28/2025 11:25 AM EDT 03/28/2025 11:25 AM EDT Nelda HARRY LAB BLOOD ORDERABLES Fin al Result Performing Organization Address [facility] Co de Phone Number [facility] [address] [place] [address], [place] [phone] * Uric acid (03/28/2025 11:25 AM EDT) [facility] Uric Acid 5.4 3.1 - 7.8 mg/dL LAB CHEMISTRY METHOD 03/28/2025 3:44 PM EDT [facility] Blood Venous blood specimen / Unknown Venipuncture / Unknown 03/28/2025 11:25 AM EDT 03/28/2025 11:25 AM EDT Nelda HARRY LAB BLOOD ORDERABLES Fin al Result Performing Organization Address City/[facility]/ZIP Co de Phone Number [facility] [address] [place] [address], [place] [phone] * Hm Depression Screening (12/28/2023) Pathologist [facility] HM Depression Screening abstracted Historical Provider HEALTH MAINTENANCE Final Result * Lipid panel (09/10/2022) Pathologist [facility] LDL/HDL Ratio 3 0 - 4 Triglycerides 102 0 - 150 mg/dL Cholesterol 148 0 - 200 mg/dL HDL 44 >=40 mg/dL LDL Cholesterol 84 0 - 100 mg/dL Blood Venous blood specimen / Unknown Result [facility] Provider LAB BLOOD ORDERABLES Letha l Result * Pap Smear (03/19/2021) Pathologist [facility] Pap smear no interpretation , abstracted [facility] Provider HEALTH MAINTENANCE Final Result * Hepatitis C Screening (05/13/2017) Pathologist [facility] Hepatitis C Screening abstracted Result [facility] Provider HEALTH MAINTENANCE Final Result * HIV Screening (12/22/2012) [facility] HIV Screening abstracted Result [facility] Provider HEALTH MAINTENANCE Final Result from Last 3 Months or Most Recently Relevant to Health Maintenance Insurance [facility] Care Teams Lining Caser Relationship Specialty Start Date End Date Mike Quintero MD [address] [place] [address] PCP - General Internal Medicine 02/02/22
== END 2025-06-17 14:31 | disposition home or self-care (01) ==
LOC: HO.HBS 13:56
PROVIDERS: Visit Provider Physician Assistant Surgical
DX: E66.3 Overweight (principal); Z68.27 Body mass index [BMI] 27.0-27.9, adult; L98.7 Excessive and redundant skin and subcutaneous tissue; Z90.3 Acquired absence of stomach [part of]; Z98.84 Bariatric surgery status
CPT/HCPCS: 98013

== ENCOUNTER → 2025-06-17 13:56 | Outpatient (BNVA) | payer OTHER, SELFPAY | PROVIDERS: Visit Provider Physician Assistant Surgical | DX: E66.3 Overweight (principal); L98.7 Excessive and redundant skin and subcutaneous tissue; Z98.84 Bariatric surgery status; Z68.28 Body mass index [BMI] 28.0-28.9, adult; Z13.89 Encounter for screening for other disorder ==